=== PATIENT | female | born 1940 | race Caucasian/White ===

== ENCOUNTER → 2016-11-24 | Outpatient (CLI) | payer MEDICARE, BC ==
--- NOTE | 2016-11-25 11:29 | MM ---
Reason for exam: screening (asymptomatic). Last mammogram was performed 1 year ago. History: Patient is postmenopausal. Benign stereotactic core biopsy of the left breast, July 29, 2003. Benign excisional biopsy of the right breast. Took estrogen for 10 years beginning at age 40. Took progesterone for 10 years. Physical Findings: A clinical breast exam by your physician is recommended on an annual basis and results should be correlated with mammographic findings. MG 3D Screening Mammo W/Cad Bilateral CC and MLO view(s) were taken. Prior study comparison: November 12, 2015, bilateral MG 3d screening mammo w/cad. October 15, 2014, bilateral MG screening mammo w CAD. October 18, 2013, bilateral MG work up mamm w CAD BILAT. October 04, 2012, bilateral digital screening mammo w/CAD. The breast tissue is heterogeneously dense. This may lower the sensitivity of mammography. Finding: There are typically benign diffuse/scattered calcifications in both breasts. No suspicious abnormality. ASSESSMENT: Benign, BI-RAD 2 RECOMMENDATION: Routine screening mammogram of both breasts in 1 year.
== END | disposition home or self-care (01) ==
LOC: RADMAMWWP 12:47
PROVIDERS: ATTEND Family Medicine
DX: Z12.31 Encounter for screening mammogram for malignant neoplasm of breast (principal)
CPT/HCPCS: 77063; G0202

== ENCOUNTER 2016-12-03 11:15 | Emergency (ER) | payer MEDICARE, BC ==
[2016-12-03] MEDS ORDERED: FAMOTIDINE 20 MG/2 ML VIAL IV STA (11:42)
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
[2016-12-03] MEDS ORDERED: NAPROXEN 250 MG TAB PO STA (12:14)
[2016-12-03 13:24] VITALS: BP 134/68; PULSE 87; RESP 16; TEMP 98.2
== END 2016-12-03 13:29 | disposition home or self-care (01) ==
LOC: EC 11:15
DX: T63.441A Toxic effect of venom of bees, accidental (unintentional), initial encounter (principal); E07.9 Disorder of thyroid, unspecified; Z79.899 Other long term (current) drug therapy; Z91.030 Bee allergy status; Z91.040 Latex allergy status; Y92.89 Other specified places as the place of occurrence of the external cause
CPT/HCPCS: 96374; 99284

== ENCOUNTER 2017-11-09 14:38 | Inpatient (IN) | payer MEDICARE, BC ==
[2017-11-09 16:32] LABS: Basophils % (A) 0 %; Eosinophils # (A) 0.2 k/uL (0-0.7); Eosinophils % (A) 1 %; HCT 43.3 % (34.0-46.0); HGB 14.2 gm/dL (11.4-16.0); Lymphocytes # (A) 1.3 k/uL (1.0-4.8); Lymphocytes % (A) 9 %; MCH 28.3 pg (25.0-35.0); MCHC 32.8 g/dL (31.0-37.0); MCV 86.5 fL (80.0-100.0); Mean Platelet Volume 7.1; Monocytes # (A) 0.8 k/uL (0-1.0); Monocytes % (A) 6 %; Neutrophils # (A) 11.6 k/uL (1.3-7.7); Neutrophils % (A) 83 %; Platelet Count 316 k/uL (150-450); RDW 14.2 % (11.5-15.5)
--- NOTE | 2017-11-09 16:32 | XR ---
EXAMINATION TYPE: XR chest 2V DATE OF EXAM: 11/09/2017 COMPARISON: None INDICATION: Pain vomiting TECHNIQUE: Frontal and lateral views of the chest are obtained. FINDINGS: The heart size is normal. The pulmonary vasculature is normal. The lungs are clear. IMPRESSION: 1. No acute pulmonary process.
--- NOTE | 2017-11-09 16:33 | XR ---
EXAMINATION TYPE: XR KUB DATE OF EXAM: 11/09/2017 COMPARISON: None INDICATION: Pain, vomiting TECHNIQUE: Single view abdomen upright view FINDINGS: Nonspecific bowel gas is present. There are small bowel loops containing air. Some colonic bowel gas is present. There are some scattered air-fluid levels within the colon. No suspicious differential ai r-fluid levels are present. No free air is present. No mass effect is evident. Psoas margins are normal. No organomegaly is present. Cholecystectomy clips are present. IMPRESSION: 1. Nonspecific abdomen.
[2017-11-09 16:49] LABS: Appearance,Urine Clear (Clear); Bacteria,Urine Rare /hpf; Bilirubin,Urine Negative (Negative); Blood,Urine Negative (Negative); Color,Urine Yellow; Glucose,Urine (UA) Negative (Negative); Ketones,Urine Negative (Negative); Leukocyte Esterase,Urine Small (Negative); Mucus,Urine Rare /hpf; Nitrite,Urine Negative (Negative); Protein,Urine Trace (Negative); RBC,Urine 16 /hpf (0-5); Specific Gravity,Urine 1.019 (1.001-1.035); Squamous Epithelial Cell,Urine <1 /hpf (0-4); WBC,Urine 8 /hpf (0-5)
[2017-11-09 16:50] LABS: ALT 60 U/L (9-52); AST 85 U/L (14-36); Albumin 4.2 g/dL (3.5-5.0); Alkaline Phosphatase 121 U/L (38-126); Amylase 79 U/L (30-110); Anion Gap 9 mmol/L; Blood Urea Nitrogen 16 mg/dL (7-17); Calcium 9.7 mg/dL (8.4-10.2); Carbon Dioxide 25 mmol/L (22-30); Chloride 106 mmol/L (98-107); Glucose 104 mg/dL (74-99); Lipase 566 U/L (23-300); Potassium 4.3 mmol/L (3.5-5.1); Sodium 140 mmol/L (137-145); Total Bilirubin 0.5 mg/dL (0.2-1.3); Total Protein 7.8 g/dL (6.3-8.2)
[2017-11-09] MEDS ORDERED: SODIUM CHLORIDE 0.9% 1,000 ML IV ONE (17:14)
--- NOTE | 2017-11-09 17:43 | ED ---
Abdominal Pain HPI - General Source: patient, RN notes reviewed, old records reviewed Mode of arrival: wheelchair Limitations: no limitations <Kriss Luther - Last Filed: 11/09/17 19:41> <Davey Guzman - Last Filed: 11/09/17 19:50> - General Chief Complaint: Abdominal Pain Stated Complaint: abdominal pain & weakness Time Seen by Provider: 11/09/17 16:56 - History of Present Illness Initial Comments: 77-year-old female multiple food ALLERGIES presents emergency department today with episodes of diarrhea lasting today as well as some severe abdominal pain. She also had episodes of vomiting within the past 24 hours. Patient states that whenever she does have vomiting episodes she drains her whole body of energy. Patient reports today she's felt quite dizzy and weak. Patient states that she had some toast and jelly today. She did eat hamburger and tomatoes yesterday. (Kriss Luther) - Related Data Home Medications Medication Instructions Recorded Confirmed Cholecalciferol [Vitamin D3] 1,000 unit PO DAILY 12/03/16 11/09/17 L.acidoph,Paracasei, B.lactis 1 cap PO DAILY 12/03/16 11/09/17 [Probiotic] Levothyroxine Sodium [Synthroid] 25 mcg PO DAILY 12/03/16 11/09/17 Vit A/Vit C/Vit E/Zinc/Copper 1 cap PO DAILY 12/03/16 11/09/17 [ICAPS SOFTGEL] Calcium Carbonate [Tums] 500 mg PO DAILY 11/09/17 11/09/17 EPINEPHrine [Epipen 2-Michael] 0.3 mg IM ONCE PRN 11/09/17 11/09/17 diphenhydrAMINE [Benadryl] 25 - 50 mg PO Q6HR PRN 11/09/17 11/09/17 Allergies Allergy/AdvReac Type Severity Reaction Status Date / Time bee venom protein (honey bee) Allergy Swelling Verified 11/09/17 17:09 codeine Allergy Unknown Verified 11/09/17 17:09 latex AdvReac Itching Verified 11/09/17 17:09 Review of Systems ROS Other: All systems not noted in ROS Statement are negative. <Kriss Luther - Last Filed: 11/09/17 19:41> ROS Other: All systems not noted in ROS Statement are negative. <Davey Guzman - Last Filed: 11/09/17 19:50> ROS Statement: Those systems with pertinent positive or pertinent negative responses have been documented in the HPI. Past Medical History Past Medical History: Thyroid Disorder History of Any Multi-Drug Resistant Organisms: None Reported Past Surgical History: Cholecystectomy, Hysterectomy Additional Past Surgical History / Comment(s): left lumpectomy Past Psychological History: No Psychological Hx Reported Smoking Status: Never smoker Past Alcohol Use History: None Reported Past Drug Use History: None Reported <Kriss Luther - Last Filed: 11/09/17 19:41> General Exam Limitations: no limitations General appearance: alert, in no apparent distress Head exam: Present: atraumatic, normocephalic, normal inspection Eye exam: Present: normal appearance, PERRL, EOMI. Absent: scleral icterus, conjunctival injection, periorbital swelling ENT exam: Present: normal exam, mucous membranes moist Neck exam: Present: normal inspection. Absent: tenderness, meningismus, lymphadenopathy Respiratory exam: Present: normal lung sounds bilaterally. Absent: respiratory distress, wheezes, rales, rhonchi, stridor Cardiovascular Exam: Present: regular rate, normal rhythm, normal heart sounds. Absent: systolic murmur, diastolic murmur, rubs, gallop, clicks GI/Abdominal exam: Present: soft, normal bowel sounds, hyperactive bowel sounds. Absent: distended, tenderness, guarding, rebound, rigid Extremities exam: Present: normal inspection, full ROM, normal capillary refill. Absent: tenderness, pedal edema, joint swelling, calf tenderness Back exam: Present: normal inspection Neurological exam: Present: alert, oriented X3, CN II-XII intact Psychiatric exam: Present: normal affect, normal mood <Kriss Luther - Last Filed: 11/09/17 19:41> <Davey Guzman - Last Filed: 11/09/17 19:50> - General Exam Comments Initial Comments: This patient's a 77-year-old female. Alert and oriented. No significant distress. (Kriss Luther) Course <Kriss Luther - Last Filed: 11/09/17 19:41> <Davey Guzman - Last Filed: 11/09/17 19:50> Vital Signs 08/15/18 08/15/18 08/15/18 15:46 18:10 18:12 Temperature 98.0 F Pulse Rate 80 91 Respiratory 18 18 Rate Blood Pressure 122/63 118/58 O2 Sat by Pulse 95 Oximetry 11/09/17 11/09/17 18:57 19:42 Temperature Pulse Rate 79 18 L Respiratory 18 82 H Rate Blood Pressure 113/59 132/68 O2 Sat by Pulse 92 L 97 Oximetry - Reevaluation(s) Reevaluation #1: 11/09/17 19:50 PA supervision: I personally saw and examined the patient. I reviewed and agree with the PAs findings including all diagnostic interpretations treatment plans is written unless otherwise stated. I did discuss the case with Dr. Francis. (Davey Guzman) Medical Decision Making - Lab Data Result diagrams: 11/09/17 16:18 11/09/17 16:18 - Radiology Data Radiology results: report reviewed <Kriss Luther - Last Filed: 11/09/17 19:41> - Lab Data Result diagrams: 11/09/17 16:18 11/09/17 16:18 <Davey Guzman - Last Filed: 11/09/17 19:50> - Medical Decision Making 77-year-old female presents with vomiting, diarrhea episodes for the past 2 days. Patient may need something that did not agree with her. She has a long history of food ALLERGIES. Lab work was obtained. Mild leukocytosis evident. She also has mild elevation of her pancreatic enzyme her lipase. 599. CT abdomen and pelvis was completed. There is evidence of a cystic mass within the posterior aspect of the pancreas. Unable to exclude neoplastic process. CT also shows evidence of atherosclerotic disease, evidence of ileus. No obstruction noted. This Patient was started on IV fluids, she complains of no significant pain at this time. We'll give the Patient nothing by mouth. I will order a CA-19-9 on the Patient. I discussed woman the Patient for further evaluation. The pancreatic mass pending her CA-19-9 as well. Patient agrees treatment plan will comply. (Kriss Luther) - Lab Data Lab Results 11/09/17 11/09/17 11/09/17 Range/Units 16:18 16:18 16:18 WBC 14.0 H (3.8-10.6) k/uL RBC 5.00 (3.80-5.40) m/uL Hgb 14.2 (11.4-16.0) gm/dL Hct 43.3 (34.0-46.0) % MCV 86.5 (80.0-100.0) fL MCH 28.3 (25.0-35.0) pg MCHC 32.8 (31.0-37.0) g/dL RDW 14.2 (11.5-15.5) % Plt Count 316 (150-450) k/uL Neutrophils % 83 % Lymphocytes % 9 % Monocytes % 6 % Eosinophils % 1 % Basophils % 0 % Neutrophils # 11.6 H (1.3-7.7) k/uL Lymphocytes # 1.3 (1.0-4.8) k/uL Monocytes # 0.8 (0-1.0) k/uL Eosinophils # 0.2 (0-0.7) k/uL Basophils # 0.0 (0-0.2) k/uL Sodium 140 (137-145) mmol/L Potassium 4.3 (3.5-5.1) mmol/L Chloride 106 (98-107) mmol/L Carbon Dioxide 25 (22-30) mmol/L Anion Gap 9 mmol/L BUN 16 (7-17) mg/dL Creatinine 0.70 (0.52-1.04) mg/dL Est GFR (CKD-EPI)AfAm >90 (>60 ml/min/1.73 sqM) Est GFR (CKD-EPI)NonAf 83 (>60 ml/min/1.73 sqM) Glucose 104 H (74-99) mg/dL Plasma Lactic Acid Bryan 0.7 (0.7-2.0) mmol/L Calcium 9.7 (8.4-10.2) mg/dL Total Bilirubin 0.5 (0.2-1.3) mg/dL AST 85 H (14-36) U/L ALT 60 H (9-52) U/L Alkaline Phosphatase 121 (38-126) U/L Troponin I (0.000-0.034) ng/mL Total Protein 7.8 (6.3-8.2) g/dL Albumin 4.2 (3.5-5.0) g/dL Amylase 79 (30-110) U/L Lipase 566 H (23-300) U/L Urine Color Urine Appearance (Clear) Urine pH (5.0-8.0) Ur Specific [place] (1.001-1.035) Urine Protein (Negative) Urine Glucose (UA) (Negative) Urine Ketones (Negative) Urine Blood (Negative) Urine Nitrite (Negative) Urine Bilirubin (Negative) Urine Urobilinogen (<2.0) mg/dL Ur Leukocyte Esterase (Negative) Urine RBC (0-5) /hpf Urine WBC (0-5) /hpf Ur Squamous Epith Cells (0-4) /hpf Urine Bacteria (None) /hpf Urine Mucus (None) /hpf 11/09/17 11/09/17 Range/Units 16:18 16:30 WBC (3.8-10.6) k/uL RBC (3.80-5.40) m/uL Hgb (11.4-16.0) gm/dL Hct (34.0-46.0) % MCV (80.0-100.0) fL MCH (25.0-35.0) pg MCHC (31.0-37.0) g/dL RDW (11.5-15.5) % Plt Count (150-450) k/uL Neutrophils % % Lymphocytes % % Monocytes % % Eosinophils % % Basophils % % Neutrophils # (1.3-7.7) k/uL Lymphocytes # (1.0-4.8) k/uL Monocytes # (0-1.0) k/uL Eosinophils # (0-0.7) k/uL Basophils # (0-0.2) k/uL Sodium (137-145) mmol/L Potassium (3.5-5.1) mmol/L Chloride (98-107) mmol/L Carbon Dioxide (22-30) mmol/L Anion Gap mmol/L BUN (7-17) mg/dL Creatinine (0.52-1.04) mg/dL Est GFR (CKD-EPI)AfAm (>60 ml/min/1.73 sqM) Est GFR (CKD-EPI)NonAf (>60 ml/min/1.73 sqM) Glucose (74-99) mg/dL Plasma Lactic Acid Bryan (0.7-2.0) mmol/L Calcium (8.4-10.2) mg/dL Total Bilirubin (0.2-1.3) mg/dL AST (14-36) U/L ALT (9-52) U/L Alkaline Phosphatase (38-126) U/L Troponin I <0.012 (0.000-0.034) ng/mL Total Protein (6.3-8.2) g/dL Albumin (3.5-5.0) g/dL Amylase (30-110) U/L Lipase (23-300) U/L Urine Color Yellow Urine Appearance Clear (Clear) Urine pH 5.0 (5.0-8.0) Ur Specific [place] 1.019 (1.001-1.035) Urine Protein Trace H (Negative) Urine Glucose (UA) Negative (Negative) Urine Ketones Negative (Negative) Urine Blood Negative (Negative) Urine Nitrite Negative (Negative) Urine Bilirubin Negative (Negative) Urine Urobilinogen 2.0 (<2.0) mg/dL Ur Leukocyte Esterase Small H (Negative) Urine RBC 16 H (0-5) /hpf Urine WBC 8 H (0-5) /hpf Ur Squamous Epith Cells <1 (0-4) /hpf Urine Bacteria Rare H (None) /hpf Urine Mucus Rare H (None) /hpf - Radiology Data EKG shows normal sinus rhythm, normal EKG noted. Ventricular rate of 80 bpm. OH interval is 160 ms. QRS duration 96. QT QTc is 376/433. KUB is negative for any acute process. Chest x-rays negative for any acute cardiopulmonary process. Atherosclerotic vascular disease, irregular thin- walled cystic mass in the posterior body of the pancreas. Nonspecific. Consider inflammatory neoplastic process. Few celiac and mesenteric lymph nodes. Distended fluid small bowel consistent with ileus. Sclerotic foci in the lumbar spine could be osteoporosis. (Kriss Luther) Disposition Is patient prescribed a controlled substance at d/c from ED?: No Time of Disposition: 19:45 <Kriss Luther - Last Filed: 11/09/17 19:41> <Davey Guzman - Last Filed: 11/09/17 19:50> Clinical Impression: Elevated lipase, Pancreatic mass, Gastroenteritis Disposition: HOME SELF-CARE Referrals: Rosemarie Espinal MD [Primary Care Provider] - 1-2 days
--- NOTE | 2017-11-09 19:15 | CT ---
EXAMINATION TYPE: CT abdomen pelvis w con DATE OF EXAM: 11/09/2017 COMPARISON: None HISTORY: ABDOMINAL PAIN WITH VOMITING AND DIARRHEA CT DLP: 502.6 mGycm Automated exposure control for dose reduction was used. TECHNIQUE: Helical acquisition of images was performed from the lung bases through the pelvis. CONTRAST: Performed without Oral Contrast and with IV Contrast, patient injected with 100 mL of Isovue 300. FINDINGS: There is mild subsegmental atelectasis at the lung bases. The heart is enlarged. There is no pleural effusion. Liver spleen appear normal. There is an irregular 2.3 cm cyst in the body of the pancreas. Pancreatic duct is not dilated. There are clips from cholecystectomy. There is no adrenal mass. Kidneys show satisfactory contrast opacification. There is no hydronephrosi s. Ureters are not dilated. There are multiple fluid-filled distended loops of small bowel that measu re up to 3 cm. Bladder distends smoothly. There is mild edema in the perirectal fat. There is no asci tyler. There is fluid in the right colon. Appendix is not seen. There is no sign of appendicitis. Abdom inal aorta is atheromatous. There is no retroperitoneal adenopathy. There are multiple areas of mild osteosclerosis in the lumbar vertebral bodies. There are few retroperitoneal and mesenteric and celiac lymph nodes that measure up to 1.3 cm. IMPRESSION: ATHEROSCLEROTIC VASCULAR DISEASE. IRREGULAR THIN-WALLED CYSTIC MASS IN THE POSTERIOR BODY OF THE PANC REAS. THIS IS NONSPECIFIC. I WOULD CONSIDER BOTH INFLAMMATORY AND NEOPLASTIC PROCESS. THERE ARE A FEW MESENTERIC AND CELIAC AND RETROPERITONEAL LYMPH NODES. DISTENDED FLUID-FILLED SMALL BOWEL CONSISTENT WITH ILEUS. I DO NOT SEE EVIDENCE FOR MECHANICAL BOWEL OBSTRUCTION. SCLEROTIC FOCI IN THE LUMBAR SPINE COULD RELATE TO VARIABLE OSTEOPOROSIS. OSTEOBLASTIC DISEASE IS NOT ENTIRELY EXCLUDED.
[2017-11-09] MEDS: SODIUM CHLORIDE 0.9% 1,000 ML IV SCH (19:41)
[2017-11-09] MEDS ORDERED: IBUPROFEN 400 MG TAB PO PRN (19:47)
[2017-11-09] MEDS ORDERED: ONDANSETRON 4 MG/2 ML VIAL IVP PRN (19:47)
[2017-11-09] MEDS ORDERED: oxyCODONE-APAP 5-325MG 1 EACH TAB PO PRN (19:47)
[2017-11-09] MEDS ORDERED: HYDROcodone/APAP 5-325MG 1 EACH TAB PO PRN (19:47)
[2017-11-09] MEDS ORDERED: NALOXONE 0.4 MG/ML 1 ML VIAL IV PRN (19:47)
[2017-11-10] MEDS: SODIUM CHLORIDE 0.9% 1,000 ML IV SCH ×2 (06:03→15:38)
[2017-11-10] MEDS: PANTOPRAZOLE 40 MG/10 ML VIAL IV SCH (07:28)
[2017-11-10 11:17] LABS: Basophils % (A) 1 %; Eosinophils # (A) 0.2 k/uL (0-0.7); Eosinophils % (A) 4 %; HCT 35.8 % (34.0-46.0); HGB 11.8 gm/dL (11.4-16.0); Lymphocytes # (A) 1.8 k/uL (1.0-4.8); Lymphocytes % (A) 40 %; MCH 28.7 pg (25.0-35.0); MCV 87.1 fL (80.0-100.0); Mean Platelet Volume 6.9; Monocytes # (A) 0.3 k/uL (0-1.0); Monocytes % (A) 6 %; Neutrophils # (A) 2.2 k/uL (1.3-7.7); Neutrophils % (A) 49 %; Platelet Count 263 k/uL (150-450); RBC 4.11 m/uL (3.80-5.40); RDW 14.3 % (11.5-15.5); WBC 4.6 k/uL (3.8-10.6)
[2017-11-10 11:26] LABS: ALT 36 U/L (9-52); AST 17 U/L (14-36); Albumin 3.1 g/dL (3.5-5.0); Alkaline Phosphatase 83 U/L (38-126); Amylase 41 U/L (30-110); Anion Gap 6 mmol/L; Blood Urea Nitrogen 9 mg/dL (7-17); Calcium 8.7 mg/dL (8.4-10.2); Carbon Dioxide 24 mmol/L (22-30); Chloride 111 mmol/L (98-107); Glucose 87 mg/dL (74-99); Lipase 64 U/L (23-300); Potassium 4.3 mmol/L (3.5-5.1); Sodium 141 mmol/L (137-145); Total Bilirubin 0.5 mg/dL (0.2-1.3); Total Protein 6.1 g/dL (6.3-8.2)
[2017-11-10] MEDS: ACETAMINOPHEN TAB 325 MG TAB PO PRN ×2 (12:09→17:23)
[2017-11-10] MEDS: LEVOTHYROXINE 25 MCG TAB PO SCH (12:11)
[2017-11-10] MEDS ORDERED: diphenhydrAMINE 25 MG CAP PO PRN (12:20)
--- NOTE | 2017-11-10 12:31 | P.HPIM ---
History of Present Illness H&P Date: 11/10/17 Chief Complaint: Abdominal pain This is a 77-year-old female, patient of Dr. Espinal. She has a known past medical history of multiple food ALLERGIES with severe ALLERGIC reaction with symptoms of diarrhea and rash. She also has a history of hypothyroidism. Patient reports she had 2 days of persistent diarrhea. Then she proceeded to go to the grocery store and at the grocery store she had severe abdominal pain across the center of her abdomen and then vomited once. She came into the emergency room for further evaluation and treatment. She had a computed tomography scan of the abdomen and pelvis with contrast showing atherosclerotic vascular disease. Irregular thin-walled cystic mass in the posterior body of the pancreas. This is nonspecific but could consider inflammatory or neoplastic process. There are a few mesenteric and celiac and retroperitoneal lymph nodes. Distended fluid-filled small bowel consistent with ileus. Sclerotic foci in the lumbar spine could relate to variable osteoporosis. Osteoblastic disease is not entirely excluded. Patient also had elevated lipase of 566 elevated AST of 85 ALT 60 and white count 14. GI service has been consulted. Chest x-ray was negative KUB negative EKG normal sinus rhythm. She was started on IV fluids and made nothing by mouth. Stool for C. diff is negative. Awaiting other stool studies. Patient reports no further abdominal pain. She is still having frequent diarrhea. This is lasting longer than a typical food ALLERGY diarrhea. She reports that usually last about 24 hours. She has been dealing with these food ALLERGIES for about 3-4 years. She has had about a 40 pound weight loss over the past year. Denies any night sweats. Denies any alcohol or smoking history. Denies any previous cancer history. Review of Systems Please refer to HPI otherwise unremarkable Past Medical History Past Medical History: GERD/Reflux, Osteoarthritis (OA), Thyroid Disorder Additional Past Medical History / Comment(s): diverticulosis, goiter/thyroid, sinus problems. very sensative thin fragile skin. stated has rash on trunk. chronic atheletes foot, stress incont of urine, macular degeneration nori eyes. pt stated she received the hepatits a vaccine and shingels vaccine 2017 History of Any Multi-Drug Resistant Organisms: None Reported Past Surgical History: Cholecystectomy, Hysterectomy Additional Past Surgical History / Comment(s): cataracts, colonoscopy, nori breast bx-neg, cyst removed from rt breast, oppherectomy then total hysterectomy , lt breast has marker for mammogram Past Anesthesia/Blood Transfusion Reactions: Motion Sickness Smoking Status: Former smoker - Past Family History Mother Family Medical History: Hypertension Additional Family Medical History / Comment(s): mva- head injury- from complications Father Family Medical History: Coronary Artery Disease (CAD) Additional Family Medical History / Comment(s): heart problems Medications and Allergies Home Medications Medication Instructions Recorded Confirmed Type Cholecalciferol [Vitamin D3] 1,000 unit PO DAILY 12/03/16 11/09/17 History L.acidoph,Paracasei, B.lactis 1 cap PO DAILY 12/03/16 11/09/17 History [Probiotic] Levothyroxine Sodium [Synthroid] 25 mcg PO DAILY 12/03/16 11/09/17 History Vit A/Vit C/Vit E/Zinc/Copper 1 cap PO DAILY 12/03/16 11/09/17 History [ICAPS SOFTGEL] Calcium Carbonate [Tums] 500 mg PO DAILY 11/09/17 11/09/17 History EPINEPHrine [Epipen 2-Michael] 0.3 mg IM ONCE PRN 11/09/17 11/09/17 History diphenhydrAMINE [Benadryl] 25 - 50 mg PO Q6HR PRN 11/09/17 11/09/17 History Allergies Allergy/AdvReac Type Severity Reaction Status Date / Time apple Allergy Rash/Hives Verified 11/09/17 21:36 banana Allergy Rash/Hives Verified 11/09/17 21:30 bee venom protein (honey bee) Allergy Swelling Verified 11/09/17 17:09 Beef Containing Products Allergy Rash/Hives Verified 11/09/17 21:34 [Beef] codeine Allergy Unknown Verified 11/09/17 17:09 tomato Allergy Rash/Hives Verified 11/09/17 21:33 wheat Allergy Rash/Hives Verified 11/09/17 21:32 Yeast Allergy Rash/Hives Verified 11/09/17 21:31 latex AdvReac Itching Verified 11/09/17 17:09 casein protein Allergy Rash/Hives Uncoded 11/09/17 21:35 cod fish Allergy Rash/Hives Uncoded 11/09/17 21:33 maize Allergy Rash/Hives Uncoded 11/09/17 21:30 Physical Exam Vitals: Vital Signs Temp Pulse Pulse Resp BP BP Pulse Ox 11/10/17 07:39 87 18 11/10/17 07:38 87 18 11/10/17 06:27 97.9 F 87 18 121/57 99 11/10/17 00:00 85 19 11/09/17 20:28 98.5 F 19 11/09/17 20:25 98.3 F 85 18 138/61 97 11/09/17 20:16 98.6 F 11/09/17 19:42 82 18 132/68 97 11/09/17 18:57 79 18 113/59 92 L 11/09/17 18:12 118/58 11/09/17 18:10 91 18 95 11/09/17 15:46 98.0 F 80 18 122/63 Intake and Output 11/09/17 11/10/17 11/10/17 22:59 06:59 14:59 Intake Total 240 1100 0 Balance 240 1100 0 Intake: Intake, IV Titration 1100 Amount Sodium Chloride 0.9% 1, 1100 000 ml @ 100 mls/hr IV . Q10H [facility] Rx#:[id number] Oral 240 0 Other: # Voids 1 1 3 # Bowel Movements 2 Weight 58.967 kg Head normocephalic Neck supple Lungs clear to auscultation bilaterally no wheezing or crackles Heart regular rate and rhythm S1-S2, no rub or gallop Abdomen is soft nontender nondistended positive bowel sounds no hepatosplenomegaly Extremities no edema Neuro alert and orientated to 3 Skin: Patient has significant red rash along the back and stomach and mild rash on the upper thighs. Results CBC & Chem 7: 11/10/17 10:45 11/10/17 10:45 Labs: Abnormal Lab Results - Last 24 Hours (Table) 11/09/17 11/09/17 11/09/17 Range/Units 16:18 16:18 16:30 WBC 14.0 H (3.8-10.6) k/uL Neutrophils # 11.6 H (1.3-7.7) k/uL Chloride (98-107) mmol/L Glucose 104 H (74-99) mg/dL AST 85 H (14-36) U/L ALT 60 H (9-52) U/L Total Protein (6.3-8.2) g/dL Albumin (3.5-5.0) g/dL Lipase 566 H (23-300) U/L Urine Protein Trace H (Negative) Ur Leukocyte Esterase Small H (Negative) Urine RBC 16 H (0-5) /hpf Urine WBC 8 H (0-5) /hpf Urine Bacteria Rare H (None) /hpf Urine Mucus Rare H (None) /hpf 11/10/17 Range/Units 10:45 WBC (3.8-10.6) k/uL Neutrophils # (1.3-7.7) k/uL Chloride 111 H (98-107) mmol/L Glucose (74-99) mg/dL AST (14-36) U/L ALT (9-52) U/L Total Protein 6.1 L (6.3-8.2) g/dL Albumin 3.1 L (3.5-5.0) g/dL Lipase (23-300) U/L Urine Protein (Negative) Ur Leukocyte Esterase (Negative) Urine RBC (0-5) /hpf Urine WBC (0-5) /hpf Urine Bacteria (None) /hpf Urine Mucus (None) /hpf Thrombosis Risk Factor Assmnt - Choose All That Apply Each Risk Factor Represents 3 Points: Age 75 years or older Thrombosis Risk Factor Assessment Total Risk Factor Score: 3 Thrombosis Risk Factor Assessment Level: Moderate Risk Assessment and Plan Assessment: 1. Abdominal pain with diarrhea and episode of vomiting. Abnormal CAT scan findings with a thin-walled cystic mass in the posterior body of the pancreas. Need to consider both inflammatory and neoplastic process. Lipase elevated as well as AST and ALT these have normalized. GI service has been consulted. Patient is currently nothing by mouth Will await their further evaluation and recommendations. Stool for C. diff is negative. Others stool studies are pending. Continue IV fluids. CA-19-9 pending 2. 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 Patient reports that the current rash she has is showing improvement it is severe and she takes Benadryl. We'll resume patient's Benadryl. 3. Positive urinalysis with no urinary symptoms. Likely contaminant from the diarrhea. We will send for urine culture. Continue to monitor 4. Hypothyroidism continue Synthroid 6. Ileus present on CAT scan. Patient currently nothing by mouth. Continue with IV fluid hydration GI prophylaxis Protonix and DVT prophylaxis SCDs Time with Patient: Greater than 30 (Greater than 60% of the total time spent in counseling and coordination of care.I performed an examination of the patient and discussed their management with the physician Vp Informatics. I have reviewed the Physician Vp Informatics's notes and agree with the documented findings and plan of care)
[2017-11-10 13:43] VITALS: BMI 22.3
--- NOTE | 2017-11-10 23:55 | P.CONS ---
History of Present Illness - Reason for Consult Consult date: 11/10/17 Pancreatic mass Requesting physician: Delia Francis - Chief Complaint Diarrhea, abdominal pain - History of Present Illness The patient is a pleasant 77-year-old female who presented to the emergency department complaints of worsening diarrhea and sharp abdominal pain. Per the patient she suffers from baseline diarrhea with approximately 5 episodes of diarrhea daily. The patient reports that she has had colonoscopic evaluation in the past but reports that the diarrhea has been attributed to significant ALLERGIES which she suffers from. She notes that usually her diarrhea occurs predominantly in the morning and is improved by the afternoon. The patient reports that this today's prior to presentation she began to increased diarrhea with innumerable episodes of nonbloody stool per rectum. She reports that she developed 30-40 minutes of sharp nonradiating periumbilical abdominal pain while shopping prior to coming to the hospital for evaluation. The patient reports that the diarrhea has subsequently improved and she is no longer having abdominal pain. She reports a few episodes of nonbloody non-bilious emesis prior to presentation which have also improved. She denies any travel sick contacts or change in her medications. On admission the patient had a computed tomography scan done of the abdomen which showed an irregular thin-walled pancreatic mass in the tail of the pancreas with evidence of previous cholecystectomy. The patient had a follow-up CA 19 9 which was found to be normal. Evaluation of her loose bowel movements with an EIA for C. diff was also found to be negative. The patient denies any prior history of alcohol abuse or any family history of pancreatic cancer. She reports that when her diarrhea began in the past she lost weight however over the last year her weight has been stable. Review of Systems Constitutional: Denies chills, Denies fever, Denies lethargy, Denies poor appetite, Denies weight gain Eyes: denies photophobia Ears, nose, mouth and throat: Denies dysphagia, Denies epistaxis, Denies sore throat Cardiovascular: Denies chest pain, Denies edema, Denies high blood pressure, Denies palpitations, Denies shortness of breath, Denies syncope Respiratory: Denies cough, Denies cough with sputum, Denies dyspnea Gastrointestinal: Reports abdominal pain, Reports change in bowel habits, Reports diarrhea, Reports nausea, Reports vomiting, Denies BRBPR, Denies coffee ground emesis, Denies constipation, Denies heartburn Integumentary: Reports rash Neurological: Denies double vision, Denies gait dysfunction, Denies seizures Psychiatric: Denies confusion, Denies difficulty concentrating Past Medical History Past Medical History: GERD/Reflux, Osteoarthritis (OA), Thyroid Disorder Additional Past Medical History / Comment(s): diverticulosis, goiter/thyroid, sinus problems. very sensative thin fragile skin. stated has rash on trunk. chronic atheletes foot, stress incont of urine, macular degeneration nori eyes. pt stated she received the hepatits a vaccine and shingels vaccine 2017 History of Any Multi-Drug Resistant Organisms: None Reported Past Surgical History: Cholecystectomy, Hysterectomy Additional Past Surgical History / Comment(s): cataracts, colonoscopy, nori breast bx-neg, cyst removed from rt breast, oppherectomy then total hysterectomy , lt breast has marker for mammogram Past Anesthesia/Blood Transfusion Reactions: Motion Sickness Smoking Status: Former smoker - Past Family History Mother Family Medical History: Hypertension Additional Family Medical History / Comment(s): mva- head injury- from complications Father Family Medical History: Coronary Artery Disease (CAD) Additional Family Medical History / Comment(s): heart problems Medications and Allergies Home Medications Medication Instructions Recorded Confirmed Type Cholecalciferol [Vitamin D3] 1,000 unit PO DAILY 12/03/16 11/09/17 History L.acidoph,Paracasei, B.lactis 1 cap PO DAILY 12/03/16 11/09/17 History [Probiotic] Levothyroxine Sodium [Synthroid] 25 mcg PO DAILY 12/03/16 11/09/17 History Vit A/Vit C/Vit E/Zinc/Copper 1 cap PO DAILY 12/03/16 11/09/17 History [ICAPS SOFTGEL] Calcium Carbonate [Tums] 500 mg PO DAILY 11/09/17 11/09/17 History EPINEPHrine [Epipen 2-Michael] 0.3 mg IM ONCE PRN 11/09/17 11/09/17 History diphenhydrAMINE [Benadryl] 25 - 50 mg PO Q6HR PRN 11/09/17 11/09/17 History Allergies Allergy/AdvReac Type Severity Reaction Status Date / Time apple Allergy Rash/Hives Verified 11/09/17 21:36 banana Allergy Rash/Hives Verified 11/09/17 21:30 bee venom protein (honey bee) Allergy Swelling Verified 11/09/17 17:09 Beef Containing Products Allergy Nausea & Verified 11/10/17 13:45 [Beef] Vomiting & Diarrhea chicken derived [Chicken] Allergy Nausea & Verified 11/10/17 13:45 Vomiting & Diarrhea codeine Allergy Unknown Verified 11/09/17 17:09 potato Allergy Nausea & Verified 11/10/17 13:45 Vomiting & Diarrhea tomato Allergy Rash/Hives Verified 11/09/17 21:33 wheat Allergy Nausea & Verified 11/10/17 13:45 Vomiting & Diarrhea Yeast Allergy Rash/Hives Verified 11/09/17 21:31 latex AdvReac Itching Verified 11/09/17 17:09 casein protein Allergy Nausea & Uncoded 11/10/17 13:45 Vomiting & Diarrhea cod fish Allergy Rash/Hives Uncoded 11/09/17 21:33 maize Allergy Rash/Hives Uncoded 11/09/17 21:30 Physical Exam Vitals: Vital Signs Temp Pulse Resp BP Pulse Ox 11/10/17 20:36 97.8 F 72 20 169/69 99 11/10/17 19:00 18 11/10/17 16:00 79 18 11/10/17 14:20 97.6 F 79 18 144/73 97 11/10/17 07:39 87 18 11/10/17 07:38 87 18 11/10/17 06:27 97.9 F 87 18 121/57 99 11/10/17 00:00 85 19 Intake and Output 11/10/17 11/10/17 11/11/17 14:59 22:59 06:59 Intake Total 0 1740 Balance 0 1740 Intake: Oral 0 1740 Other: # Voids 3 3 # Bowel Movements 2 3 Weight 58.967 kg - Constitutional General appearance: cooperative, thin - EENT Eyes: EOMI, no scleral icterus - Respiratory Respiratory: bilateral: CTA, negative: diminished, dullness, rales, rhonchi, wheezing - Cardiovascular Rhythm: regular Heart sounds: normal: S1, S2 - Gastrointestinal General gastrointestinal: no distended, normal bowel sounds, no organomegaly, soft - Psychiatric Psychiatric: A&O x's 3, appropriate affect Results CBC & Chem 7: 11/10/17 10:45 11/10/17 10:45 Labs: Abnormal Lab Results - Last 24 Hours (Table) 11/10/17 Range/Units 10:45 Chloride 111 H (98-107) mmol/L Total Protein 6.1 L (6.3-8.2) g/dL Albumin 3.1 L (3.5-5.0) g/dL Microbiology - Last 24 Hours (Table) 11/10/17 14:35 Urine Culture - Preliminary Urine,Voided 11/10/17 08:00 Stool Culture - Preliminary Stool CT scan - abdomen: report reviewed Assessment and Plan (1) Pancreatic mass Narrative/Plan: Thin-walled pancreatic mass noted on computed tomography scan which was done in evaluation of patient's symptoms of worsening diarrhea and severe abdominal pain. Unclear if this mass represents a benign or malignant process with differential diagnosis brought including sidebranch type IPMN, MCN, pancreatic cyst or other etiology. Further evaluation will be needed. Current Visit: Yes Status: Acute Code(s): K86.9 - DISEASE OF PANCREAS, UNSPECIFIED SNOMED Code(s): 569506221 (2) Gastroenteritis Narrative/Plan: Acute on chronic diarrhea of unknown etiology likely represents a viral or bacterial gastroenteritis. The patient may benefit from outpatient workup of her diarrhea including colonoscopy with random colonic biopsies to rule out microscopic colitis and trial of therapy for bile salt diarrhea in the setting of previous cholecystectomy. However at this time symptoms have improved as is likely that the acute component of her symptoms or infectious in nature. Current Visit: Yes Status: Acute Code(s): K52.9 - NONINFECTIVE GASTROENTERITIS AND COLITIS, UNSPECIFIED SNOMED Code(s): 12836924 (3) Elevated lipase Narrative/Plan: No evidence of pancreatic inflammation on CT to suggest pancreatitis and pain not typical, elevated lipase may be related to the pancreatic mass seen on CT. However further imaging we required to investigate. Current Visit: Yes Status: Acute Code(s): R74.8 - ABNORMAL LEVELS OF OTHER SERUM ENZYMES SNOMED Code(s): 165165858 Plan: 1. Computed tomography scan reviewed and given findings of pancreatic mass further workup with MRI ordered. In addition the patient would likely benefit from evaluation with endoscopic ultrasound. This procedure is provided at this hospital and the patient will get the contact information to follow-up with an advanced endoscopist for further pancreatic evaluation and possible fluid aspiration of the mass. 2. Okay for clear liquid diet at this time which the patient is tolerating. We 'll advance as tolerated. 3. Patient will require follow-up in the outpatient setting for further evaluation of her chronic diarrhea. 4. Stool studies negative today. 5. Will continue to follow Thank you for the opportunity to participate in the care of this patient.
[2017-11-11] MEDS: LEVOTHYROXINE 25 MCG TAB PO SCH (06:23)
[2017-11-11] MEDS: SODIUM CHLORIDE 0.9% 1,000 ML IV SCH ×3 (06:25→23:47)
[2017-11-11 06:49] LABS: Basophils % (A) 0 %; Eosinophils # (A) 0.2 k/uL (0-0.7); Eosinophils % (A) 4 %; HCT 37.2 % (34.0-46.0); HGB 12.3 gm/dL (11.4-16.0); Lymphocytes # (A) 1.8 k/uL (1.0-4.8); Lymphocytes % (A) 37 %; MCHC 33.1 g/dL (31.0-37.0); MCV 87.5 fL (80.0-100.0); Mean Platelet Volume 6.9; Monocytes # (A) 0.3 k/uL (0-1.0); Monocytes % (A) 5 %; Neutrophils # (A) 2.5 k/uL (1.3-7.7); Neutrophils % (A) 51 %; Platelet Count 271 k/uL (150-450); RBC 4.25 m/uL (3.80-5.40); RDW 14.3 % (11.5-15.5); WBC 4.9 k/uL (3.8-10.6)
[2017-11-11 07:00] LABS: ALT 31 U/L (9-52); AST 12 U/L (14-36); Albumin 3.2 g/dL (3.5-5.0); Alkaline Phosphatase 74 U/L (38-126); Anion Gap 7 mmol/L; Blood Urea Nitrogen 7 mg/dL (7-17); Calcium 8.8 mg/dL (8.4-10.2); Carbon Dioxide 21 mmol/L (22-30); Chloride 113 mmol/L (98-107); Glucose 84 mg/dL (74-99); Sodium 141 mmol/L (137-145); Total Bilirubin 0.5 mg/dL (0.2-1.3); Total Protein 6.3 g/dL (6.3-8.2)
[2017-11-11] MEDS: PANTOPRAZOLE 40 MG/10 ML VIAL IV SCH (08:15)
[2017-11-11] MEDS: ACETAMINOPHEN TAB 325 MG TAB PO PRN ×2 (08:17→19:17)
[2017-11-11] MEDS: LACTOBACILLUS ACIDOPH & BULGAR 1 EACH PACKET PO SCH (08:27)
[2017-11-11] MEDS ORDERED: ENOXAPARIN 40 MG/0.4 ML SYRINGE SQ SCH (14:15)
--- NOTE | 2017-11-11 14:28 | P.PN ---
Subjective Progress Note Date: 11/11/17 This is a 77-year-old female, patient of Dr. Espinal. She has a known past medical history of multiple food ALLERGIES with severe ALLERGIC reaction with symptoms of diarrhea and rash. She also has a history of hypothyroidism. Patient reports she had 2 days of persistent diarrhea. Then she proceeded to go to the grocery store and at the grocery store she had severe abdominal pain across the center of her abdomen and then vomited once. She came into the emergency room for further evaluation and treatment. She had a computed tomography scan of the abdomen and pelvis with contrast showing atherosclerotic vascular disease. Irregular thin-walled cystic mass in the posterior body of the pancreas. This is nonspecific but could consider inflammatory or neoplastic process. There are a few mesenteric and celiac and retroperitoneal lymph nodes. Distended fluid-filled small bowel consistent with ileus. Sclerotic foci in the lumbar spine could relate to variable osteoporosis. Osteoblastic disease is not entirely excluded. Patient also had elevated lipase of 566 elevated AST of 85 ALT 60 and white count 14. GI service has been consulted. Chest x-ray was negative KUB negative EKG normal sinus rhythm. She was started on IV fluids and made nothing by mouth. Stool for C. diff is negative. Awaiting other stool studies. Patient reports no further abdominal pain. She is still having frequent diarrhea. This is lasting longer than a typical food ALLERGY diarrhea. She reports that usually last about 24 hours. She has been dealing with these food ALLERGIES for about 3-4 years. She has had about a 40 pound weight loss over the past year. Denies any night sweats. Denies any alcohol or smoking history. Denies any previous cancer history. 11/11/2017 patient has had no further abdominal pain. Reports improvement in her bowel movements. Last stool was at 6:00 this morning and it was partially formed. She denies any blood in the stools. She did receive a liquid diet last night did have diarrhea after eating. She is scheduled for an MRI of the abdomen today for further evaluation of the pancreatic cystic mass. Patient denies any further vomiting. Denies any chest pain or shortness of breath. Denies any difficulty with urinating or any burning with urination. Objective - Vital Signs Vital signs: Vital Signs Temp 98.0 F 11/11/17 11:37 Pulse 69 11/11/17 11:37 Resp 16 11/11/17 11:37 BP 136/70 11/11/17 11:37 Pulse Ox 98 11/11/17 11:37 Intake & Output 11/10/17 11/11/17 11/11/17 18:59 06:59 18:59 Intake Total 0 2320 Balance 0 2320 Weight 58.967 kg Intake: Oral 0 2320 Other: # Voids 3 # Bowel Movements 1 3 - Exam Head normocephalic Neck supple Lungs clear to auscultation bilaterally no wheezing or crackles Heart regular rate and rhythm S1-S2, no rub or gallop Abdomen is soft nontender nondistended positive bowel sounds no hepatosplenomegaly Extremities no edema Neuro alert and orientated to 3 - Labs CBC & Chem 7: 11/11/17 06:32 11/11/17 06:32 Labs: Abnormal Lab Results - Last 24 Hours (Table) 11/11/17 Range/Units 06:32 Chloride 113 H (98-107) mmol/L Carbon Dioxide 21 L (22-30) mmol/L AST 12 L (14-36) U/L Albumin 3.2 L (3.5-5.0) g/dL Microbiology - Last 24 Hours (Table) 11/10/17 14:35 Urine Culture - Preliminary Urine,Voided 11/10/17 08:00 Stool Culture - Preliminary Stool Assessment and Plan Assessment: 1. Gastroenteritis: with abdominal pain, diarrhea and episode of vomiting. Stool studies are negative so far. Continue with IV fluid hydration. 2. Cystic mass of the pancreas: Abnormal CAT scan findings with a thin-walled cystic mass in the posterior body of the pancreas. Need to consider both inflammatory and neoplastic process. Lipase elevated as well as AST and ALT these have normalized. Patient seen by GI service they have ordered an abdominal MRI and also recommending an endoscopic ultrasound to be completed outpatient. 3. 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 Patient reports that the current rash she has is showing improvement it is severe and she takes Benadryl. We'll resume patient's Benadryl. 4. Positive urinalysis with no urinary symptoms. Likely contaminant from the diarrhea. Diarrhea has improved. We'll repeat urinalysis 5. Hypothyroidism continue Synthroid 6. Ileus present on CAT scan. Continue to monitor GI prophylaxis Protonix and DVT prophylaxis lovenox I performed an examination of the patient and discussed their management with the physician Financial Systems Analyst. I have reviewed the Physician Financial Systems Analyst's notes and agree with the documented findings and plan of care
--- NOTE | 2017-11-11 15:12 | MR ---
EXAMINATION TYPE: MR abdomen wo/w con DATE OF EXAM: 11/11/2017 COMPARISON: CT abdomen and pelvis 2 days earlier. HISTORY: Follow up pancreatic mass seen on CT CONTRAST: Standard multiplanar, multisequence MRI departmental protocol utilizing 7.5 mL intravenous Gadavist g adolinium contrast. FINDINGS: Pancreas: Pancreas is overall normal in size. Correlating with CT there is lobulated thin-walled cyst or cystic lesion in the mid body measuring 2.1 x 1.4 cm coronal image 15 with AP diameter 1.5 cm axi al image 13. Postcontrast images show no suspicious nodular enhancement. Remainder pancreas shows no additional worrisome solid or cystic masses. Other: Cardiomegaly is present. Lung bases are clear. There is mild to moderate periportal edema thro ughout the liver. Liver is upper limits of normal in size. Gallbladder is surgically absent. Spleen a nd both adrenal glands are unremarkable. There is simple appearing 9 mm cyst lower pole level left ki dney. There is no suspicious small or large bowel dilatation. Stomach is poorly distended and thus suboptim ally evaluated. There is no concerning abdominal fluid collection. There is slight underlying dextroc onvex scoliotic curvature centered in the mid lumbar spine. No definitive greater than 1 cm abdominal adenopathy is seen. IMPRESSION: Confirmation of 2.1 cm thin-walled cyst or cystic lesion in the region of the mid pancrea tic body. Differential includes pseudocyst versus pancreatic cystic neoplasm. No suspicious nodularit y or enhancement. Correlate clinically and with pancreatic tumor lab markers. Consider MRI surveillan ce in 6-12 months time to reevaluate based on above.
--- NOTE | 2017-11-11 19:54 | P.PN ---
Subjective Progress Note Date: 11/11/17 Principal diagnosis: Diarrhea, pancreatic mass The patient reports feeling well today. She reports improvement of her diarrhea which she is known to suffer from baseline. She has had no further abdominal pain since presentation. MRI was performed and was consistent with CT findings of distal pancreatic mass. I discussed this with the patient and left detailed discharge instructions which I informed her of. Objective - Vital Signs Vital signs: Vital Signs Temp 98.1 F 11/11/17 18:18 Pulse 71 11/11/17 18:18 Resp 16 11/11/17 18:18 BP 147/69 11/11/17 18:18 Pulse Ox 95 11/11/17 18:18 Intake & Output 11/11/17 11/11/17 11/12/17 06:59 18:59 06:59 Intake Total 2320 Balance 2320 Intake: Oral 2320 Other: # Voids 2 1 # Bowel Movements 3 - Exam On physical examination, patient appears comfortable in no apparent distress. Vital signs are stable. HEENT: Unremarkable. Conjunctivae pink. Sclerae anicteric. Oral cavity no lesions. NECK: No JVD or lymph node enlargement. CHEST: Clear to auscultation. HEART: Regular rate and rhythm. ABDOMEN: Soft. Bowel sounds are positive. No organomegaly. EXTREMITIES: No pedal edema. SKIN: No rashes. NEUROLOGIC: Alert and oriented x3. No focal deficits. - Labs CBC & Chem 7: 11/11/17 06:32 11/11/17 06:32 Labs: Abnormal Lab Results - Last 24 Hours (Table) 11/11/17 Range/Units 06:32 Chloride 113 H (98-107) mmol/L Carbon Dioxide 21 L (22-30) mmol/L AST 12 L (14-36) U/L Albumin 3.2 L (3.5-5.0) g/dL Microbiology - Last 24 Hours (Table) 11/10/17 14:35 Urine Culture - Preliminary Urine,Voided Gram Neg Bacilli 11/10/17 08:00 Stool Culture - Preliminary Stool Assessment and Plan (1) Pancreatic mass Narrative/Plan: Thin-walled pancreatic mass noted on computed tomography scan which was done in evaluation of patient's symptoms of worsening diarrhea and severe abdominal pain. Unclear if this mass represents a benign or malignant process with differential diagnosis brought including sidebranch type IPMN, MCN, pancreatic cyst or other etiology. Further evaluation with MRI was consistent with CT findings, of note calcifications or nodularity or other worrisome features were described. The patient however will need EUS with possible aspiration of the cyst for further evaluation. Current Visit: Yes Status: Acute Code(s): K86.9 - DISEASE OF PANCREAS, UNSPECIFIED SNOMED Code(s): 234692851 (2) Gastroenteritis Narrative/Plan: Acute on chronic diarrhea of unknown etiology likely represents a viral or bacterial gastroenteritis. The patient may benefit from outpatient workup of her diarrhea including colonoscopy with random colonic biopsies to rule out microscopic colitis and trial of therapy for bile salt diarrhea in the setting of previous cholecystectomy. However at this time symptoms have improved as is likely that the acute component of her symptoms are infectious in nature. Current Visit: Yes Status: Acute Code(s): K52.9 - NONINFECTIVE GASTROENTERITIS AND COLITIS, UNSPECIFIED SNOMED Code(s): 63639792 (3) Elevated lipase Narrative/Plan: No evidence of pancreatic inflammation on CT to suggest pancreatitis and pain not typical, elevated lipase may be related to the pancreatic mass seen on CT. Current Visit: Yes Status: Acute Code(s): R74.8 - ABNORMAL LEVELS OF OTHER SERUM ENZYMES SNOMED Code(s): 854462000 Plan: 1. Computed tomography scan reviewed and given findings of pancreatic mass which was confirmed by evaluation with MRI today. In addition the patient would likely benefit from evaluation with endoscopic ultrasound. The patient was called and informed of the results of her imaging. At this time I have included the contact information of an advanced endoscopist at [facility] will be able to for provide the EUS for the patient, she was informed of the plan and is agreeable. 2. Okay for diet as tolerated. 3. Patient will require follow-up in the outpatient setting for further evaluation of her chronic diarrhea. 4. Stool studies negative. 5. Will continue to follow Thank you for the opportunity to participate in the care of this patient.
[2017-11-11 22:19] LABS: Appearance,Urine Clear (Clear); Bacteria,Urine Few /hpf; Bilirubin,Urine Negative (Negative); Blood,Urine Negative (Negative); Color,Urine Light Yellow; Glucose,Urine (UA) Negative (Negative); Ketones,Urine Negative (Negative); Leukocyte Esterase,Urine Small (Negative); Mucus,Urine Rare /hpf; Nitrite,Urine Negative (Negative); Protein,Urine Negative (Negative); RBC,Urine <1 /hpf (0-5); Specific Gravity,Urine 1.011 (1.001-1.035); Urobilinogen,Urine <2.0 mg/dL (<2.0); WBC,Urine 7 /hpf (0-5)
[2017-11-11 23:31] VITALS: RESP 18
[2017-11-12] MEDS: SODIUM CHLORIDE 0.9% 1,000 ML IV SCH (05:14)
[2017-11-12] MEDS: LEVOTHYROXINE 25 MCG TAB PO SCH (06:35)
[2017-11-12 07:22] LABS: Basophils % (A) 0 %; Eosinophils # (A) 0.2 k/uL (0-0.7); Eosinophils % (A) 4 %; HGB 11.4 gm/dL (11.4-16.0); Lymphocytes # (A) 1.9 k/uL (1.0-4.8); Lymphocytes % (A) 45 %; MCH 28.4 pg (25.0-35.0); MCHC 32.7 g/dL (31.0-37.0); MCV 86.6 fL (80.0-100.0); Mean Platelet Volume 6.9; Monocytes # (A) 0.3 k/uL (0-1.0); Monocytes % (A) 7 %; Neutrophils # (A) 1.8 k/uL (1.3-7.7); Neutrophils % (A) 42 %; Platelet Count 260 k/uL (150-450); RBC 4.04 m/uL (3.80-5.40); RDW 14.1 % (11.5-15.5); WBC 4.3 k/uL (3.8-10.6)
[2017-11-12 08:09] LABS: ALT 26 U/L (9-52); AST 9 U/L (14-36); Albumin 2.8 g/dL (3.5-5.0); Alkaline Phosphatase 61 U/L (38-126); Anion Gap 5 mmol/L; Blood Urea Nitrogen 9 mg/dL (7-17); Calcium 8.5 mg/dL (8.4-10.2); Carbon Dioxide 22 mmol/L (22-30); Chloride 114 mmol/L (98-107); Glucose 84 mg/dL (74-99); Sodium 141 mmol/L (137-145); Total Bilirubin 0.3 mg/dL (0.2-1.3); Total Protein 5.6 g/dL (6.3-8.2)
[2017-11-12] MEDS ORDERED: ENOXAPARIN 40 MG/0.4 ML SYRINGE SQ SCH (09:00)
[2017-11-12] MEDS: LACTOBACILLUS ACIDOPH & BULGAR 1 EACH PACKET PO SCH (09:02)
[2017-11-12] MEDS: PANTOPRAZOLE 40 MG/10 ML VIAL IV SCH (09:05)
[2017-11-12 12:50] VITALS: BP 138/68; PULSE 63; TEMP 98
--- NOTE | 2017-11-12 13:17 | P.DS ---
Providers Date of admission: 11/09/17 19:46 Expected date of discharge: 11/12/17 Attending physician: Delia Francis Consults: 11/09/17 19:52 Consult Physician Stat Consulting Provider: Erin Hidalgo Consult Reason/Comments: pancreatic cyst vs mass Do you want consulting provider notified?: Yes Primary care physician: Rosemarie Espinal Hospital Course: Diagnosis on discharge: 1. Gastroenteritis: with abdominal pain, diarrhea and episode of vomiting. Stool studies are negative so far. Continue with IV fluid hydration. 2. Cystic mass of the pancreas: Abnormal CAT scan findings with a thin-walled cystic mass in the posterior body of the pancreas. Need to consider both inflammatory and neoplastic process. Lipase elevated as well as AST and ALT these have normalized. Patient seen by GI service they have ordered an abdominal MRI and also recommending an endoscopic ultrasound to be completed outpatient. 3. 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 Patient reports that the current rash she has is showing improvement it is severe and she takes Benadryl. We'll resume patient's Benadryl. 4. Positive urinalysis with no urinary symptoms. Likely contaminant from the diarrhea. Diarrhea has improved. We'll repeat urinalysis 5. Hypothyroidism continue Synthroid 6. Ileus present on CAT scan. Improved patient is tolerating diet well Hospital course: This is a 77-year-old female, patient of Dr. Espinal. She has a known past medical history of multiple food ALLERGIES with severe ALLERGIC reaction with symptoms of diarrhea and rash. She also has a history of hypothyroidism. Patient reports she had 2 days of persistent diarrhea. Then she proceeded to go to the grocery store and at the grocery store she had severe abdominal pain across the center of her abdomen and then vomited once. She came into the emergency room for further evaluation and treatment. She had a computed tomography scan of the abdomen and pelvis with contrast showing atherosclerotic vascular disease. Irregular thin-walled cystic mass in the posterior body of the pancreas. This is nonspecific but could consider inflammatory or neoplastic process. There are a few mesenteric and celiac and retroperitoneal lymph nodes. Distended fluid-filled small bowel consistent with ileus. Sclerotic foci in the lumbar spine could relate to variable osteoporosis. Osteoblastic disease is not entirely excluded. Patient also had elevated lipase of 566 elevated AST of 85 ALT 60 and white count 14. GI service has been consulted. Chest x-ray was negative KUB negative EKG normal sinus rhythm. She was started on IV fluids and made nothing by mouth. Stool for C. diff is negative. Awaiting other stool studies. Patient reports no further abdominal pain. She is still having frequent diarrhea. This is lasting longer than a typical food ALLERGY diarrhea. She reports that usually last about 24 hours. She has been dealing with these food ALLERGIES for about 3-4 years. She has had about a 40 pound weight loss over the past year. Denies any night sweats. Denies any alcohol or smoking history. Denies any previous cancer history. 11/11/2017 patient has had no further abdominal pain. Reports improvement in her bowel movements. Last stool was at 6:00 this morning and it was partially formed. She denies any blood in the stools. She did receive a liquid diet last night did have diarrhea after eating. She is scheduled for an MRI of the abdomen today for further evaluation of the pancreatic cystic mass. Patient denies any further vomiting. Denies any chest pain or shortness of breath. Denies any difficulty with urinating or any burning with urination. On 11/12/2017 patient is doing better she is sitting up at the edge of her bed eating her meal, she denies any nausea or vomiting no abdominal pain, diarrhea has improved significantly, findings as above was pancreatic cyst, no intervention recommended during this admission for gastroenterology, patient was evaluated by Dr. Barraza this morning and was cleared for discharge, she will be followed as outpatient for further evaluation including endoscopic ultrasound which will be arranged at [facility]. Patient informed of the findings on computed tomography scan and MRI and the importance of following up with gastroenterology as outpatient for further testing. She will be discharged home today, she will follow-up with her primary care physician Dr. Espinal within one week. Patient Condition at Discharge: Good Plan - Discharge Summary Discharge Rx Participant: No New Discharge Prescriptions: Continue Vit A/Vit C/Vit E/Zinc/Copper [ICAPS SOFTGEL] 1 cap PO DAILY Levothyroxine Sodium [Synthroid] 25 mcg PO DAILY Cholecalciferol [Vitamin D3] 1,000 unit PO DAILY L.acidoph,Paracasei, B.lactis [Probiotic] 1 cap PO DAILY diphenhydrAMINE [Benadryl] 25 - 50 mg PO Q6HR PRN PRN Reason: Allergic Reaction EPINEPHrine [Epipen 2-Imchael] 0.3 mg IM ONCE PRN PRN Reason: Anaphylaxis Calcium Carbonate [Tums] 500 mg PO DAILY Discharge Medication List Cholecalciferol [Vitamin D3] 1,000 unit PO DAILY 12/03/16 [History] L.acidoph,Paracasei, B.lactis [Probiotic] 1 cap PO DAILY 12/03/16 [History] Levothyroxine Sodium [Synthroid] 25 mcg PO DAILY 12/03/16 [History] Vit A/Vit C/Vit E/Zinc/Copper [ICAPS SOFTGEL] 1 cap PO DAILY 12/03/16 [History] Calcium Carbonate [Tums] 500 mg PO DAILY 11/09/17 [History] EPINEPHrine [Epipen 2-Michael] 0.3 mg IM ONCE PRN 11/09/17 [History] diphenhydrAMINE [Benadryl] 25 - 50 mg PO Q6HR PRN 11/09/17 [History] Follow up Appointment(s)/Referral(s): Rosemarie Espinal MD [Primary Care Provider] - 1-2 days Gustabo Banks MD [REFERRING] - 2 Weeks (For Endoscopic ultrasound evaluation of distal pancreatic cyst seen on CT and MRI. PLEASE call Tuesday for appt)
[2017-11-18 17:24] LABS: Cryptosporidium parvum Not detected (Not detected); Isospora belli Not detected (Not detected); Microsporidium Not detected (Not detected); Routine Ova and Parasites Not detected; White Cells Not detected (Not detected)
== END 2017-11-12 13:50 | disposition home or self-care (01) | DRG 392 ==
LOC: EC 14:38 → 5MS5E 19:46 → 6PED 11-10 18:44
PROVIDERS: ADMIT Internal Medicine; ATTEND Internal Medicine
DX: K52.9 Noninfective gastroenteritis and colitis, unspecified (principal); K56.7 Ileus, unspecified; K86.2 Cyst of pancreas; E03.9 Hypothyroidism, unspecified; H35.30 Unspecified macular degeneration; K21.9 Gastro-esophageal reflux disease without esophagitis; M81.0 Age-related osteoporosis without current pathological fracture; K57.90 Diverticulosis of intestine, part unspecified, without perforation or abscess without bleeding; M19.90 Unspecified osteoarthritis, unspecified site; R21 Rash and other nonspecific skin eruption; R63.4 Abnormal weight loss; R74.8 Abnormal levels of other serum enzymes; N39.3 Stress incontinence (female) (male); B35.3 Tinea pedis; Z90.710 Acquired absence of both cervix and uterus; Z90.49 Acquired absence of other specified parts of digestive tract; Z87.891 Personal history of nicotine dependence; Z90.721 Acquired absence of ovaries, unilateral; Z79.890 Hormone replacement therapy; Z79.899 Other long term (current) drug therapy; Z88.8 Allergy status to other drugs, medicaments and biological substances; Z91.030 Bee allergy status; Z91.040 Latex allergy status; Z88.5 Allergy status to narcotic agent; Z91.013 Allergy to seafood; Z98.42 Cataract extraction status, left eye; Z98.41 Cataract extraction status, right eye; Z96.1 Presence of intraocular lens; Z82.49 Family history of ischemic heart disease and other diseases of the circulatory system
CPT/HCPCS: 36415; 71046; 74018; 74177; 74183; 80053; 81001; 82150; 83605; 83630; 83690; 84484; 85025; 86301; 87045; 87046; 87077; 87086; 87177; 87186; 87207; 87209; 87324; 93005; 99285

== ENCOUNTER → 2018-02-14 | Outpatient (CLI) | payer MEDICARE, BC ==
--- NOTE | 2018-02-20 10:14 | MM ---
Reason for exam: screening (asymptomatic). Last mammogram was performed 1 year and 3 months ago. History: Patient is postmenopausal. Benign stereotactic core biopsy of the left breast, July 29, 2003. Benign excisional biopsy of the right breast. Took estrogen for 10 years beginning at age 40. Took progesterone for 10 years. Physical Findings: A clinical breast exam by your physician is recommended on an annual basis and results should be correlated with mammographic findings. MG 3D Screening Mammo W/Cad Bilateral CC and MLO view(s) were taken. Prior study comparison: November 24, 2016, bilateral MG 3d screening mammo w/cad. November 12, 2015, bilateral MG 3d screening mammo w/cad. The breast tissue is heterogeneously dense. This may lower the sensitivity of mammography. Previous mammotome biopsy in the left breast. Stable round and punctate scattered, regional and grouped calcifications on the left. No significant changes when compared with prior studies. ASSESSMENT: Benign, BI-RAD 2 RECOMMENDATION: Routine screening mammogram of both breasts in 1 year.
== END ==
LOC: RADMAMWWP 13:22
PROVIDERS: ATTEND Family Medicine
DX: Z12.31 Encounter for screening mammogram for malignant neoplasm of breast (principal)
CPT/HCPCS: 77063; 77067

== ENCOUNTER 2018-02-26 19:17 | Emergency (ER) | payer MEDICARE, BC ==
[2018-02-26 19:31] VITALS: TEMP 98.3
[2018-02-26] MEDS ORDERED: MORPHINE SULFATE 4 MG/ML SYRINGE IM STA (20:02)
--- NOTE | 2018-02-26 20:56 | XR ---
EXAMINATION TYPE: XR knee complete LT DATE OF EXAM: 02/26/2018 COMPARISON: NONE HISTORY: Knee pain TECHNIQUE: 3 views FINDINGS: I see no fracture nor dislocation. There is osteopenia. Joint spaces are fairly normal. The re is no sign of joint effusion. IMPRESSION: No acute abnormality of the left knee. Osteopenia.
--- NOTE | 2018-02-26 20:57 | XR ---
EXAMINATION TYPE: XR tibia fibula LT DATE OF EXAM: 02/26/2018 COMPARISON: NONE HISTORY: Pain TECHNIQUE: 4 views FINDINGS: There is osteopenia. Ankle mortise is anatomic. Knee joint appears intact. I see no fractur e nor dislocation. IMPRESSION: No acute abnormality of the left tibia and fibula.
--- NOTE | 2018-02-26 20:58 | XR ---
EXAMINATION TYPE: XR femur LT DATE OF EXAM: 02/26/2018 COMPARISON: NONE HISTORY: Pain and swelling TECHNIQUE: 4 views FINDINGS: I see no fracture nor dislocation. Hip joint and knee joint appear intact. There are no pat hologic calcifications. There is some osteopenia. IMPRESSION: No acute abnormality of the left femur.
[2018-02-26 21:03] VITALS: RESP 16
--- NOTE | 2018-02-26 21:28 | ED ---
Fall HPI - General Chief Complaint: Fall Stated Complaint: left leg swelling Time Seen by Provider: 02/26/18 19:35 Source: patient Mode of arrival: wheelchair - History of Present Illness Initial Comments: His and is a 77-year-old female presenting for left knee pain. The patient states that she had a mechanical fall on ice on February 14 and injured the left knee and left henderson. She went to see her family doctor on Tuesday but the doctor did not perform any x-rays she states that since that time, she has been having worsening pain in the knee as well as in the back of the calf and states that she is having more and more difficulty ambulating as well. She denies taking any blood thinners and states that there is some discomfort on the back of her leg in the knee is more swollen than normal. - Related Data Home Medications Medication Instructions Recorded Confirmed Cholecalciferol [Vitamin D3] 1,000 unit PO DAILY 12/03/16 11/09/17 L.acidoph,Paracasei, B.lactis 1 cap PO DAILY 12/03/16 11/09/17 [Probiotic] Levothyroxine Sodium [Synthroid] 25 mcg PO DAILY 12/03/16 11/09/17 Vit A/Vit C/Vit E/Zinc/Copper 1 cap PO DAILY 12/03/16 11/09/17 [ICAPS SOFTGEL] Calcium Carbonate [Tums] 500 mg PO DAILY 11/09/17 11/09/17 EPINEPHrine [Epipen 2-Michael] 0.3 mg IM ONCE PRN 11/09/17 11/09/17 diphenhydrAMINE [Benadryl] 25 - 50 mg PO Q6HR PRN 11/09/17 11/09/17 Previous Rx's Medication Instructions Recorded HYDROcodone/APAP 10-325MG [Hospers 1 tab PO Q6HR PRN 3 Days #12 tab 02/26/18 10-325] Allergies Allergy/AdvReac Type Severity Reaction Status Date / Time apple Allergy Rash/Hives Verified 02/26/18 19:31 banana Allergy Rash/Hives Verified 02/26/18 19:31 bee venom protein (honey bee) Allergy Swelling Verified 02/26/18 19:31 Beef Containing Products Allergy Nausea & Verified 02/26/18 19:31 [Beef] Vomiting & Diarrhea chicken derived [Chicken] Allergy Nausea & Verified 02/26/18 19:31 Vomiting & Diarrhea codeine Allergy Unknown Verified 02/26/18 19:31 potato Allergy Nausea & Verified 02/26/18 19:31 Vomiting & Diarrhea tomato Allergy Rash/Hives Verified 02/26/18 19:31 wheat Allergy Nausea & Verified 02/26/18 19:31 Vomiting & Diarrhea Yeast Allergy Rash/Hives Verified 02/26/18 19:31 latex AdvReac Itching Verified 02/26/18 19:31 casein protein Allergy Nausea & Uncoded 02/26/18 19:31 Vomiting & Diarrhea cod fish Allergy Rash/Hives Uncoded 02/26/18 19:31 maize Allergy Rash/Hives Uncoded 02/26/18 19:31 Review of Systems ROS Statement: Those systems with pertinent positive or pertinent negative responses have been documented in the HPI. Constitutional: Negative for chills, fatigue and fever. HENT: Negative for congestion. Respiratory: Negative for chest tightness, shortness of breath and wheezing. Negative for cough Cardiovascular: Negative for chest pain and palpitations. Gastrointestinal: Negative for abdominal pain. Negative for abdominal distention , diarrhea, nausea and vomiting. Genitourinary: Negative for dysuria. Musculoskeletal: Negative for back pain, neck pain and neck stiffness. Positive for left knee pain and left leg pain Skin: Negative for color change. Neurological: Negative for dizziness, speech difficulty, weakness and light- headedness. Psychiatric/Behavioral: Negative for agitation and confusion. Negative for anxiety ROS Other: All systems not noted in ROS Statement are negative. Past Medical History Past Medical History: GERD/Reflux, Osteoarthritis (OA), Thyroid Disorder Additional Past Medical History / Comment(s): diverticulosis, goiter/thyroid, sinus problems. very sensative thin fragile skin. stated has rash on trunk. chronic atheletes foot, stress incont of urine, macular degeneration nori eyes. pt stated she received the hepatits a vaccine and shingels vaccine 2017 History of Any Multi-Drug Resistant Organisms: None Reported Past Surgical History: Cholecystectomy, Hysterectomy Additional Past Surgical History / Comment(s): cataracts, colonoscopy, nori breast bx-neg, cyst removed from rt breast, oppherectomy then total hysterectomy , lt breast has marker for mammogram Past Anesthesia/Blood Transfusion Reactions: Motion Sickness Past Psychological History: No Psychological Hx Reported Smoking Status: Former smoker Past Alcohol Use History: None Reported Past Drug Use History: None Reported - Past Family History Mother Family Medical History: Hypertension Additional Family Medical History / Comment(s): mva- head injury- from complications Father Family Medical History: Coronary Artery Disease (CAD) Additional Family Medical History / Comment(s): heart problems General Exam - General Exam Comments Initial Comments: Constitutional: Pt is oriented to person, place, and time. Pt appears well- developed and well-nourished. No distress. HENT: Head: Normocephalic and atraumatic. Eyes: EOM are normal. Neck: Normal range of motion. Neck supple. Cardiovascular: Normal rate, regular rhythm, S1 normal, S2 normal and normal heart sounds. Exam reveals no gallop and no friction rub. No murmur heard. Pulmonary/Chest: Effort normal and breath sounds normal. No tachypnea and no bradypnea. No respiratory distress. No wheezes or rales noted. Abdominal: Soft. Bowel sounds are normal. Pt exhibits no shifting dullness, no distension, no pulsatile liver, no fluid wave, no abdominal bruit and no ascites. There is no tenderness. There is no rigidity, no rebound, no guarding, no tenderness at McBurney's point and negative Davey's sign. Musculoskeletal: Normal range of motion of right leg. Decreased flexion of the left knee and effusion of the left knee is present. There is mild diffuse tenderness with no focal pinpoint tenderness. Legs bilaterally are warm with 2 + DP and PT pulses palpable Neurological: Pt is alert and oriented to person, place, and time. No cranial nerve deficit. Skin: Skin is warm and dry. No rash noted. Pt is not diaphoretic. No erythema. No pallor. Psychiatric: Pt has a normal mood and affect. Pt behavior is normal. Thought content normal. Limitations: no limitations Course Vital Signs 02/26/18 02/26/18 19:28 20:57 Temperature 98.3 F Pulse Rate 83 83 Respiratory 20 16 Rate Blood Pressure 139/88 131/65 O2 Sat by Pulse 99 96 Oximetry Medical Decision Making - Medical Decision Making X-rays of the knee, femur, tibia/fibula were noted to be negative and ultrasound of lower extremity was also negative for DVT. Patient's pain was well controlled as well and it was advised that the source of the effusion was likely secondary to ensure articular pathology such as an ACL or MCL sprain or tear. Because of this, it was advised that a knee immobilizer should be used and that she should follow up with orthopedics in 1-2 days. Patient was agreeable to plan. Disposition Clinical Impression: Left knee pain Disposition: HOME SELF-CARE Condition: Good Instructions: Fall Prevention for Older Adults (ED) Prescriptions: HYDROcodone/APAP 10-325MG [Hospers 10-325] 1 tab PO Q6HR PRN 3 Days #12 tab PRN Reason: Pain Is patient prescribed a controlled substance at d/c from ED?: Yes When asked, does pt state using other controlled substances?: No If prescribed controlled substance>3 days was MAPS reviewed?: Prescribed <3 Days If opioid is for acute pain is fill amount 7 days or less?: Yes If Rx opioid, was Start Talking consent form obtained?: Yes Referrals: Rosemarie Espinal MD [Primary Care Provider] - 1-2 days Sanford Davey MD [STAFF PHYSICIAN] - 1-2 days Time of Disposition: 22:27
--- NOTE | 2018-02-26 21:52 | US ---
EXAMINATION TYPE: US venous doppler duplex LE LT DATE OF EXAM: 02/26/2018 8:05 PM COMPARISON: CLINICAL HISTORY: Pain. Left leg pain. Swelling. No redness. No hx of blood clots or blood thinner s. SIDE PERFORMED: Left TECHNIQUE: The lower extremity deep venous system is examined utilizing real time linear array sonog vielka with graded compression, doppler sonography and color-flow sonography. VESSELS IMAGED: External Iliac Vein (EIV) Common Femoral Vein Deep Femoral Vein Greater Saphenous Vein * Femoral Vein Popliteal Vein Small Saphenous Vein * Proximal Calf Veins (* superficial vessels) Left Leg: Negative for DVT IMPRESSION: Normal left leg duplex venous sonogram.
[2018-02-26] MEDS ORDERED: HYDROcodone/APAP 10-325MG 1 EACH TAB PO ONE (22:33)
[2018-02-26 22:58] VITALS: BP 132/69; PULSE 82
== END 2018-02-26 22:50 | disposition home or self-care (01) ==
LOC: EC 19:17
DX: M25.461 Effusion, right knee (principal); M19.90 Unspecified osteoarthritis, unspecified site; E04.9 Nontoxic goiter, unspecified; H35.30 Unspecified macular degeneration; Z79.899 Other long term (current) drug therapy; Z87.891 Personal history of nicotine dependence; Z91.018 Allergy to other foods; Z91.030 Bee allergy status; Z88.5 Allergy status to narcotic agent; Z91.040 Latex allergy status; Z91.013 Allergy to seafood; Z98.42 Cataract extraction status, left eye; Z98.41 Cataract extraction status, right eye
CPT/HCPCS: 73552; 73590; 73562; 93971; 99284; 96372; J2270

== ENCOUNTER 2018-05-11 12:45 | Inpatient (IN) | payer MEDICARE, BC ==
[2018-05-11] MEDS ORDERED: ONDANSETRON 4 MG/2 ML VIAL IVP STA (14:20)
[2018-05-11] MEDS ORDERED: MORPHINE SULFATE 4 MG/ML SYRINGE IVP STA (14:20)
--- NOTE | 2018-05-11 14:37 | ED ---
General Adult HPI - General Chief complaint: Extremity Problem,Nontraumatic Stated complaint: Fall Time Seen by Provider: 05/11/18 14:14 Source: patient, RN notes reviewed Mode of arrival: EMS Limitations: no limitations - History of Present Illness Initial comments: 77-year-old female presents to the emergency department for a chief complaint of bilateral knee pain occurring about 30 minutes prior to arrival. Patient states she was leaning into her car to reach across the [place] when she felt her right knee give out and twist. Patient states it hit the left knee and twisted into the left knee. She states she slowly lowered herself to the ground. Patient denies hitting her head. She denies any neck or back pain. She denies any dizziness or lightheadedness preceding this. Patient now admits to nausea and states she feels nauseous when she has pain. Patient received 100 mcs of fentanyl in the ambulance. Patient states she is unable to bend her knees or bear weight. Patient does admit to injuring her knees about 8 months ago when she fell in October and states she had a "deep bone bruise." She states she has also had left knee problems for the past several weeks and just finished physical therapy for this and was doing much better. Patient has been seeing Dr. Davey for this. Patient has no other complaints at this time including shortness of breath, chest pain, abdominal pain, headache, or visual changes. - Related Data Home Medications Medication Instructions Recorded Confirmed Cholecalciferol [Vitamin D3] 1,000 unit PO DAILY 12/03/16 05/11/18 L.acidoph,Paracasei, B.lactis 1 cap PO DAILY 12/03/16 05/11/18 [Probiotic] Levothyroxine Sodium [Synthroid] 25 mcg PO DAILY 12/03/16 05/11/18 Vit A/Vit C/Vit E/Zinc/Copper 1 cap PO DAILY 12/03/16 05/11/18 [ICAPS SOFTGEL] Calcium Carbonate [Tums] 500 mg PO DAILY 11/09/17 05/11/18 EPINEPHrine [Epipen 2-Michael] 0.3 mg IM ONCE PRN 11/09/17 05/11/18 diphenhydrAMINE [Benadryl] 25 - 50 mg PO Q6HR PRN 11/09/17 05/11/18 Previous Rx's Medication Instructions Recorded HYDROcodone/APAP 10-325MG [[place] 1 tab PO Q6HR PRN 3 Days #12 tab 02/26/18 10-325] Allergies Allergy/AdvReac Type Severity Reaction Status Date / Time apple Allergy Rash/Hives Verified 05/11/18 13:47 banana Allergy Rash/Hives Verified 05/11/18 13:47 bee venom protein (honey bee) Allergy Swelling Verified 05/11/18 13:47 Beef Containing Products Allergy Nausea & Verified 05/11/18 13:47 [Beef] Vomiting & Diarrhea chicken derived [Chicken] Allergy Nausea & Verified 05/11/18 13:47 Vomiting & Diarrhea codeine Allergy Unknown Verified 05/11/18 13:47 potato Allergy Nausea & Verified 05/11/18 13:47 Vomiting & Diarrhea tomato Allergy Rash/Hives Verified 05/11/18 13:47 wheat Allergy Nausea & Verified 05/11/18 13:47 Vomiting & Diarrhea Yeast Allergy Rash/Hives Verified 05/11/18 13:47 latex AdvReac Itching Verified 05/11/18 13:47 casein protein Allergy Nausea & Uncoded 02/26/18 19:31 Vomiting & Diarrhea cod fish Allergy Rash/Hives Uncoded 02/26/18 19:31 maize Allergy Rash/Hives Uncoded 02/26/18 19:31 Review of Systems ROS Statement: Those systems with pertinent positive or pertinent negative responses have been documented in the HPI. ROS Other: All systems not noted in ROS Statement are negative. Past Medical History Past Medical History: GERD/Reflux, Osteoarthritis (OA), Thyroid Disorder Additional Past Medical History / Comment(s): diverticulosis, goiter/thyroid, sinus problems. very sensative thin fragile skin. stated has rash on trunk. chronic atheletes foot, stress incont of urine, macular degeneration nori eyes. pt stated she received the hepatits a vaccine and shingels vaccine 2017 History of Any Multi-Drug Resistant Organisms: None Reported Past Surgical History: Cholecystectomy, Hysterectomy Additional Past Surgical History / Comment(s): cataracts, colonoscopy, nori breast bx-neg, cyst removed from rt breast, oppherectomy then total hysterectomy , lt breast has marker for mammogram Past Anesthesia/Blood Transfusion Reactions: Motion Sickness Past Psychological History: No Psychological Hx Reported Smoking Status: Former smoker Past Alcohol Use History: None Reported Past Drug Use History: None Reported - Past Family History Mother Family Medical History: Hypertension Additional Family Medical History / Comment(s): mva- head injury- from complications Father Family Medical History: Coronary Artery Disease (CAD) Additional Family Medical History / Comment(s): heart problems General Exam Limitations: no limitations General appearance: anxious Head exam: Present: atraumatic, normocephalic, normal inspection Eye exam: Present: normal appearance, PERRL, EOMI. Absent: scleral icterus, conjunctival injection, periorbital swelling ENT exam: Present: normal exam, normal oropharynx, mucous membranes moist, normal external ear exam Neck exam: Present: normal inspection, full ROM. Absent: tenderness, meningismus, lymphadenopathy Respiratory exam: Present: normal lung sounds bilaterally. Absent: respiratory distress, wheezes, rales, rhonchi, stridor Cardiovascular Exam: Present: regular rate, normal rhythm, normal heart sounds. Absent: systolic murmur, diastolic murmur, rubs, gallop, clicks GI/Abdominal exam: Present: soft, normal bowel sounds. Absent: distended, tenderness, guarding, rebound, rigid Extremities exam: Present: tenderness (Generalized tenderness to the anterior bilateral knees), normal capillary refill (Capillary refill less than 2 seconds and DP pulses 2+ in lower extremities bilaterally.), joint swelling (nori edema noted to the anterior bilateral knees without ecchymosis or abrasions.), other ( sensation intact in BLE). Absent: full ROM (Patient unable to bend bilateral knees.) Back exam: Absent: vertebral tenderness Neurological exam: Present: alert, oriented X3, CN II-XII intact Psychiatric exam: Present: normal affect, normal mood Course Vital Signs 05/11/18 05/11/18 05/11/18 13:13 13:30 14:00 Temperature 98.2 F Pulse Rate 58 L Respiratory 18 20 20 Rate Blood Pressure 123/85 123/85 153/76 O2 Sat by Pulse 97 98 98 Oximetry 05/11/18 05/11/18 05/11/18 14:30 15:00 15:30 Temperature Pulse Rate 89 98 Respiratory 20 22 16 Rate Blood Pressure 148/100 112/99 99/68 O2 Sat by Pulse 92 L 86 L 92 L Oximetry 05/11/18 05/11/18 05/11/18 16:00 16:30 17:00 Temperature Pulse Rate 98 99 102 H Respiratory 16 20 20 Rate Blood Pressure 123/68 137/73 133/65 O2 Sat by Pulse 98 92 L Oximetry 05/11/18 17:30 Temperature 101 F H Pulse Rate 99 Respiratory 22 Rate Blood Pressure 132/65 O2 Sat by Pulse 95 Oximetry - Reevaluation(s) Reevaluation #1: 05/11/18 17:57 Notified by RN after admission that patient has a fever after last vitals. Patient apparently had 6 warm blankets on her at the time. Therefore I added a urinalysis, urine culture, blood culture. Chest x-ray pending. Medical Decision Making - Medical Decision Making 77-year-old female presents to the emergency department for a chief bilateral knee pain after injury today. Patient did not fall on her knees but states she twisted. Patient presents diaphoretic and nauseous. According to family this is how she reacts when she is in significant pain. Patient did receive 100 mcs of fentanyl in the ambulance. She was given 4 of Zofran and 4 of morphine. Cardiac workup was initiated which was completely negative, no history of cardiac problems. Patient given Benadryl as she started to have hives possibly from fentanyl administration. Patient reevaluated, much more comfortable, appearing back to baseline. Pain is controlled. Vascular intact in lower extremity as bilaterally with the DP pulses equal. Bilateral knee x-rays show bilateral tibial plateau fractures with depressions. CBC shows a white count of 20 which is likely reactive to fractures. Discussed case with [facility] from [facility]. She recommends bilateral CT scans of the knee without contrast as well as bilateral knee immobilizers. Patient will be admitted to orthopedics with medical consult. - Lab Data Result diagrams: 05/11/18 14:37 05/11/18 14:37 Lab Results 05/11/18 05/11/18 05/11/18 Range/Units 14:37 14:37 14:37 WBC 20.2 H (3.8-10.6) k/uL RBC 4.19 (3.80-5.40) m/uL Hgb 11.9 (11.4-16.0) gm/dL Hct 35.9 (34.0-46.0) % MCV 85.7 (80.0-100.0) fL MCH 28.3 (25.0-35.0) pg MCHC 33.1 (31.0-37.0) g/dL RDW 14.5 (11.5-15.5) % Plt Count 348 (150-450) k/uL Neutrophils % 83 % Lymphocytes % 11 % Monocytes % 4 % Eosinophils % 1 % Basophils % 0 % Neutrophils # 16.8 H (1.3-7.7) k/uL Lymphocytes # 2.3 (1.0-4.8) k/uL Monocytes # 0.8 (0-1.0) k/uL Eosinophils # 0.1 (0-0.7) k/uL Basophils # 0.1 (0-0.2) k/uL PT (9.0-12.0) sec INR (<1.2) APTT (22.0-30.0) sec Sodium 140 (137-145) mmol/L Potassium 3.9 (3.5-5.1) mmol/L Chloride 107 (98-107) mmol/L Carbon Dioxide 22 (22-30) mmol/L Anion Gap 11 mmol/L BUN 15 (7-17) mg/dL Creatinine 0.55 (0.52-1.04) mg/dL Est GFR (CKD-EPI)AfAm >90 (>60 ml/min/1.73 sqM) Est GFR (CKD-EPI)NonAf 90 (>60 ml/min/1.73 sqM) Glucose 141 H (74-99) mg/dL Calcium 9.3 (8.4-10.2) mg/dL Magnesium 1.9 (1.6-2.3) mg/dL Total Bilirubin 0.6 (0.2-1.3) mg/dL AST 20 (14-36) U/L ALT 24 (9-52) U/L Alkaline Phosphatase 91 (38-126) U/L Total Creatine Kinase 25 L (30-135) U/L CK-MB (CK-2) 0.7 (0.0-2.4) ng/mL CK-MB (CK-2) Rel Index 2.8 Troponin I <0.012 (0.000-0.034) ng/mL Total Protein 6.8 (6.3-8.2) g/dL Albumin 3.8 (3.5-5.0) g/dL 05/11/18 Range/Units 14:37 WBC (3.8-10.6) k/uL RBC (3.80-5.40) m/uL Hgb (11.4-16.0) gm/dL Hct (34.0-46.0) % MCV (80.0-100.0) fL MCH (25.0-35.0) pg MCHC (31.0-37.0) g/dL RDW (11.5-15.5) % Plt Count (150-450) k/uL Neutrophils % % Lymphocytes % % Monocytes % % Eosinophils % % Basophils % % Neutrophils # (1.3-7.7) k/uL Lymphocytes # (1.0-4.8) k/uL Monocytes # (0-1.0) k/uL Eosinophils # (0-0.7) k/uL Basophils # (0-0.2) k/uL PT 11.6 (9.0-12.0) sec INR 1.1 (<1.2) APTT 23.1 (22.0-30.0) sec Sodium (137-145) mmol/L Potassium (3.5-5.1) mmol/L Chloride (98-107) mmol/L Carbon Dioxide (22-30) mmol/L Anion Gap mmol/L BUN (7-17) mg/dL Creatinine (0.52-1.04) mg/dL Est GFR (CKD-EPI)AfAm (>60 ml/min/1.73 sqM) Est GFR (CKD-EPI)NonAf (>60 ml/min/1.73 sqM) Glucose (74-99) mg/dL Calcium (8.4-10.2) mg/dL Magnesium (1.6-2.3) mg/dL Total Bilirubin (0.2-1.3) mg/dL AST (14-36) U/L ALT (9-52) U/L Alkaline Phosphatase (38-126) U/L Total Creatine Kinase (30-135) U/L CK-MB (CK-2) (0.0-2.4) ng/mL CK-MB (CK-2) Rel Index Troponin I (0.000-0.034) ng/mL Total Protein (6.3-8.2) g/dL Albumin (3.5-5.0) g/dL Disposition Clinical Impression: Fracture of left tibial plateau, Fracture of right tibial plateau Disposition: ADMITTED IP TO THIS [facility] Condition: Fair Is patient prescribed a controlled substance at d/c from ED?: No Time of Disposition: 16:28
[2018-05-11] MEDS ORDERED: diphenhydrAMINE 50 MG/ML 1 ML VIAL IVP STA (14:55)
[2018-05-11] MEDS ORDERED: SODIUM CHLORIDE 0.9% 500 ML 500 ML IV STA (14:55)
[2018-05-11 15:03] LABS: INR 1.1 (<1.2); Partial Thromboplastin Time 23.1 sec (22.0-30.0); Prothrombin Time 11.6 sec (9.0-12.0)
[2018-05-11 15:04] LABS: ALT 24 U/L (9-52); AST 20 U/L (14-36); Albumin 3.8 g/dL (3.5-5.0); Alkaline Phosphatase 91 U/L (38-126); Anion Gap 11 mmol/L; Basophils # (A) 0.1 k/uL (0-0.2); Basophils % (A) 0 %; Blood Urea Nitrogen 15 mg/dL (7-17); Calcium 9.3 mg/dL (8.4-10.2); Carbon Dioxide 22 mmol/L (22-30); Chloride 107 mmol/L (98-107); Eosinophils # (A) 0.1 k/uL (0-0.7); Eosinophils % (A) 1 %; Glucose 141 mg/dL (74-99); HCT 35.9 % (34.0-46.0); HGB 11.9 gm/dL (11.4-16.0); Lymphocytes # (A) 2.3 k/uL (1.0-4.8); Lymphocytes % (A) 11 %; MCH 28.3 pg (25.0-35.0); MCHC 33.1 g/dL (31.0-37.0); MCV 85.7 fL (80.0-100.0); Magnesium 1.9 mg/dL (1.6-2.3); Mean Platelet Volume 6.8; Monocytes # (A) 0.8 k/uL (0-1.0); Monocytes % (A) 4 %; Neutrophils # (A) 16.8 k/uL (1.3-7.7); Neutrophils % (A) 83 %; Platelet Count 348 k/uL (150-450); Potassium 3.9 mmol/L (3.5-5.1); RBC 4.19 m/uL (3.80-5.40); RDW 14.5 % (11.5-15.5); Sodium 140 mmol/L (137-145); Total Bilirubin 0.6 mg/dL (0.2-1.3); Total Protein 6.8 g/dL (6.3-8.2); WBC 20.2 k/uL (3.8-10.6)
[2018-05-11 15:06] LABS: Creatine Kinase 25 U/L (30-135)
[2018-05-11 15:20] LABS: Creatine Kinase MB 0.7 ng/mL (0.0-2.4); Troponin I <0.012 ng/mL (0.000-0.034)
--- NOTE | 2018-05-11 15:32 | XR ---
EXAMINATION TYPE: XR knee complete bilateral DATE OF EXAM: 05/11/2018 CLINICAL HISTORY: Bilateral knee pain after fall TECHNIQUE: Three views of the bilateral knees were obtained. COMPARISON: None. FINDINGS: Left: There is a depressed acute lateral tibial plateau fracture on the left with moderate suprapatel lar lipohemarthrosis. There is underlying general osseous demineralization. Impaction fracture is int ra-articular and depression is approximately 8 mm. No additional fracture is seen on the left. Genera lized soft tissue swelling is noted. Right: There is also depression of the lateral cortex of the tibial plateau on the right with moderat e lipohemarthrosis and intra-articular extension noted on the lateral view. Depression is approximate ly 5 mm. Overlying soft tissue swelling is noted. No additional fracture is seen on the right. Genera lized underlying osseous demineralization is present. IMPRESSION: Bilateral intra-articular impaction fractures of the lateral tibial plateaus with 5 mm depression on the right and 8 mm depression on the left. There are associated bilateral moderate lipohemarthrosis w ith overlying soft tissue swelling. Underlying generalized osseous demineralization is seen.
[2018-05-11] MEDS ORDERED: ACETAMINOPHEN IV (For NPO) 1,000 MG in EMPTY BAG 1 BAG IVPB ONE (16:09)
[2018-05-11] MEDS ORDERED: MORPHINE SULFATE 4 MG/ML SYRINGE IV PRN (16:28)
[2018-05-11] MEDS ORDERED: NALOXONE 0.4 MG/ML 1 ML VIAL IV PRN (16:28)
[2018-05-11] MEDS ORDERED: ONDANSETRON 4 MG/2 ML VIAL IVP PRN (16:28)
[2018-05-11] MEDS ORDERED: OFIRMEV PER PHARMACY MISCELLANE PRN (16:30)
[2018-05-11] MEDS ORDERED: ACETAMINOPHEN IV (For NPO) 1,000 MG in EMPTY BAG 1 BAG IVPB PRN (16:37)
--- NOTE | 2018-05-11 18:00 | CT ---
EXAMINATION TYPE: CT knee LT wo con DATE OF EXAM: 05/11/2018 COMPARISON: None HISTORY: Fall today with bilateral knee pain. CT DLP: 128 mGycm Automated exposure control for dose reduction was used. FINDINGS: There is a fracture of the lateral tibial plateau with depression of the comminuted fragments 8 mm. F ragments that are depressed overall measure 2.5 cm in length. There is moderate-sized knee joint effu michael. The distal femur is intact. Medial tibial condyle is intact. There is no dislocation. Patella i s intact. IMPRESSION: DEPRESSED FRACTURE OF THE LATERAL TIBIAL PLATEAU WITH COMMINUTION. KNEE JOINT EFFUSION.
--- NOTE | 2018-05-11 18:02 | CT ---
EXAMINATION TYPE: CT knee RT wo con DATE OF EXAM: 05/11/2018 COMPARISON: None HISTORY: Fall today with bilateral knee pain. CT DLP: 128 mGycm Automated exposure control for dose reduction was used. FINDINGS: There is a depressed fracture of the lateral tibial plateau. Fragment is depressed 4 mm. Fragment ck sures 2.4 x 2.8 cm. There is no dislocation. There is moderate knee joint effusion. Patella is intact . Distal femur is intact. Proximal fibula is intact. IMPRESSION: MILDLY DEPRESSED FRACTURE OF THE LATERAL TIBIAL PLATEAU.
[2018-05-11] MEDS: SODIUM CHLORIDE 0.9% 1,000 ML IV SCH (18:05)
--- NOTE | 2018-05-11 18:14 | XR ---
EXAMINATION TYPE: XR chest 2V DATE OF EXAM: 05/11/2018 COMPARISON: NONE HISTORY: Fall. Pain. TECHNIQUE: Frontal and lateral views of the chest are obtained. FINDINGS: There is no heart failure nor confluent pneumonic infiltrate. There is minimal pleural wendi ction at the lateral left lung base. There is slight blunting of the right posterior costophrenic ang le. IMPRESSION: Minimal pleural reaction at the lung bases is new compared to old exam. Normal heart.
[2018-05-12] MEDS: HYDROcodone/APAP 10-325MG 1 EACH TAB PO PRN ×5 (01:39→23:58)
[2018-05-12] MEDS: SODIUM CHLORIDE 0.9% 1,000 ML IV SCH ×2 (05:52→20:09)
[2018-05-12] MEDS: LEVOTHYROXINE 25 MCG TAB PO SCH (05:52)
[2018-05-12 09:33] LABS: Basophils % (A) 0 %; Eosinophils # (A) 0.2 k/uL (0-0.7); Eosinophils % (A) 3 %; HGB 10.2 gm/dL (11.4-16.0); Lymphocytes # (A) 1.6 k/uL (1.0-4.8); Lymphocytes % (A) 28 %; MCH 28.7 pg (25.0-35.0); MCHC 32.8 g/dL (31.0-37.0); MCV 87.5 fL (80.0-100.0); Mean Platelet Volume 6.6; Monocytes # (A) 0.4 k/uL (0-1.0); Monocytes % (A) 7 %; Neutrophils # (A) 3.4 k/uL (1.3-7.7); Neutrophils % (A) 59 %; Platelet Count 230 k/uL (150-450); RBC 3.54 m/uL (3.80-5.40); RDW 14.5 % (11.5-15.5); WBC 5.7 k/uL (3.8-10.6)
[2018-05-12 09:37] LABS: ALT 53 U/L (9-52); AST 24 U/L (14-36); Alkaline Phosphatase 84 U/L (38-126); Anion Gap 4 mmol/L; Blood Urea Nitrogen 12 mg/dL (7-17); Calcium 8.5 mg/dL (8.4-10.2); Carbon Dioxide 27 mmol/L (22-30); Chloride 109 mmol/L (98-107); Glucose 95 mg/dL (74-99); Potassium 4.1 mmol/L (3.5-5.1); Sodium 140 mmol/L (137-145); Total Bilirubin 0.6 mg/dL (0.2-1.3); Total Protein 5.9 g/dL (6.3-8.2)
--- NOTE | 2018-05-12 10:29 | P.HPOR ---
History of Present Illness H&P Date: 05/12/18 Chief Complaint: Bilateral knee pain Patient is a 77-year-old female seen at the bedside this morning. She was admitted through the ED yesterday for a chief complaint of bilateral knee pain occurring about 30 minutes prior to arrival. Patient states that she was leaning into her car to reach across the center console when she felt her right knee give out and twist. Patient states it twisted then hit the left knee. She states she then slowly lowered herself to the ground. Patient denies hitting her head. She denies any neck or back pain. She denies any dizziness or lightheadedness preceding this. Patient states she is unable to bend her knees or bear weight. Patient does admit to injuring her knees about 8 months ago when she fell in October and states she had a "deep bone bruise." She states she has also had left knee problems for the past several weeks and just finished physical therapy for this and was doing much better. Patient has no other complaints at this time including shortness of breath, chest pain, abdominal pain, headache, or visual changes, calf pain, numbness or tingling. Review of Systems All systems: negative Constitutional: Denies chills, Denies fever Eyes: denies blurred vision, denies pain Ears, nose, mouth and throat: Denies headache, Denies sore throat Cardiovascular: Denies chest pain, Denies shortness of breath Respiratory: Denies cough Gastrointestinal: Denies abdominal pain, Denies diarrhea, Denies nausea, Denies vomiting Genitourinary: Denies dysuria, Denies hematuria Musculoskeletal: Denies myalgias Integumentary: Denies pruritus, Denies rash Neurological: Denies numbness, Denies weakness Psychiatric: Denies anxiety, Denies depression Endocrine: Denies fatigue, Denies weight change Past Medical History Past Medical History: GERD/Reflux, Osteoarthritis (OA), Thyroid Disorder Additional Past Medical History / Comment(s): ppncreatic cyst(benign-removed) diverticulosis, goiter/thyroid, sinus problems. very sensative thin fragile skin. stated has rash on trunk. chronic atheletes foot, stress incont of urine, macular degeneration nori eyes. pt stated she received the hepatits a vaccine and shingels vaccine 2017 History of Any Multi-Drug Resistant Organisms: None Reported Past Surgical History: Cholecystectomy, Hysterectomy Additional Past Surgical History / Comment(s): cataracts, colonoscopy, nori breast bx-neg, cyst removed from rt breast, oppherectomy then total hysterectomy , lt breast has marker for mammogram, benign cyst removed from pancreas. Past Anesthesia/Blood Transfusion Reactions: Motion Sickness Additional Past Anesthesia/Blood Transfusion Reaction / Comment(s): pt stated she has never had any blood transfusions Smoking Status: Former smoker - Past Family History Mother Family Medical History: Hypertension Additional Family Medical History / Comment(s): mva- head injury- from complications Father Family Medical History: Coronary Artery Disease (CAD) Additional Family Medical History / Comment(s): heart problems Medications and Allergies Home Medications Medication Instructions Recorded Confirmed Type Cholecalciferol [Vitamin D3] 1,000 unit PO DAILY 12/03/16 05/11/18 History L.acidoph,Paracasei, B.lactis 1 cap PO DAILY 12/03/16 05/11/18 History [Probiotic] Levothyroxine Sodium [Synthroid] 25 mcg PO DAILY 12/03/16 05/11/18 History Vit A/Vit C/Vit E/Zinc/Copper 1 cap PO DAILY 12/03/16 05/11/18 History [ICAPS SOFTGEL] Calcium Carbonate [Tums] 500 mg PO DAILY 11/09/17 05/11/18 History EPINEPHrine [Epipen 2-Michael] 0.3 mg IM ONCE PRN 11/09/17 05/11/18 History diphenhydrAMINE [Benadryl] 25 - 50 mg PO Q6HR PRN 11/09/17 05/11/18 History HYDROcodone/APAP 10-325MG [[place] 1 tab PO Q6HR PRN 3 Days #12 tab 02/26/1805/11 Rx 10-325] Allergies Allergy/AdvReac Type Severity Reaction Status Date / Time apple Allergy Rash/Hives Verified 05/11/18 13:47 banana Allergy Rash/Hives Verified 05/11/18 13:47 bee venom protein (honey bee) Allergy Swelling Verified 05/11/18 13:47 Beef Containing Products Allergy Nausea & Verified 05/11/18 13:47 [Beef] Vomiting & Diarrhea chicken derived [Chicken] Allergy Nausea & Verified 05/11/18 13:47 Vomiting & Diarrhea codeine Allergy Unknown Verified 05/11/18 13:47 potato Allergy Nausea & Verified 05/11/18 13:47 Vomiting & Diarrhea tomato Allergy Rash/Hives Verified 05/11/18 13:47 wheat Allergy Nausea & Verified 05/11/18 13:47 Vomiting & Diarrhea Yeast Allergy Rash/Hives Verified 05/11/18 13:47 latex AdvReac Itching Verified 05/11/18 13:47 casein protein Allergy Nausea & Uncoded 02/26/18 19:31 Vomiting & Diarrhea cod fish Allergy Rash/Hives Uncoded 02/26/18 19:31 maize Allergy Rash/Hives Uncoded 02/26/18 19:31 Physical Examination Inspection of bilateral lower extremities shows no wounds or erythema. No deformity. There are bilateral knee effusions. The knees are not hot to touch. She is tender along the joint lines at [place] knees. Full ROM is not tested due to fractures. Calves are soft and nontender. Motor and sensation is intact throughout bilateral lower extremities. 2+ DP pulse and less than 2 sec cap refill is present. Results Xrays of bilateral knees show tibial plateau fractures left worse than right regarding depression. No dislocation. There are degenerative changes - Labs Labs: Abnormal Lab Results - Last 24 Hours (Table) 05/11/18 05/11/18 05/11/18 Range/Units 14:37 14:37 14:37 WBC 20.2 H (3.8-10.6) k/uL RBC (3.80-5.40) m/uL Hgb (11.4-16.0) gm/dL Hct (34.0-46.0) % Neutrophils # 16.8 H (1.3-7.7) k/uL Chloride (98-107) mmol/L Glucose 141 H (74-99) mg/dL ALT (9-52) U/L Total Creatine Kinase 25 L (30-135) U/L Total Protein (6.3-8.2) g/dL Albumin (3.5-5.0) g/dL 05/12/18 05/12/18 Range/Units 08:53 08:53 WBC (3.8-10.6) k/uL RBC 3.54 L (3.80-5.40) m/uL Hgb 10.2 L (11.4-16.0) gm/dL Hct 31.0 L (34.0-46.0) % Neutrophils # (1.3-7.7) k/uL Chloride 109 H (98-107) mmol/L Glucose (74-99) mg/dL ALT 53 H (9-52) U/L Total Creatine Kinase (30-135) U/L Total Protein 5.9 L (6.3-8.2) g/dL Albumin 3.0 L (3.5-5.0) g/dL H & H 05/11/18 05/12/18 Range/Units 14:37 08:53 Hgb 11.9 10.2 L (11.4-16.0) gm/dL Hct 35.9 31.0 L (34.0-46.0) % Coagulation 05/11/18 Range/Units 14:37 INR 1.1 (<1.2) Result Diagrams: 05/12/18 08:53 05/12/18 08:53 Assessment and Plan (1) Fracture of left tibial plateau Narrative/Plan: CT scan of both knees have been ordered for further characterization of the fractures and management planning. She is to be in knee immobilizers when out of bed. She is to be nonweightbearing for now. Continue pain management, DVT prophylaxis and medical management. Will review CT and case with Dr. Davey and make further recommendations as appropriate. Current Visit: Yes Status: Acute Priority: Medium Code(s): S82.142A - DISPLACED BICONDYLAR FRACTURE OF LEFT TIBIA, INIT SNOMED Code(s): 504015814 (2) Fracture of right tibial plateau Current Visit: Yes Status: Acute Priority: Medium Code(s): S82.141A - DISPLACED BICONDYLAR FRACTURE OF RIGHT TIBIA, INIT SNOMED Code(s): 230493845 Time with Patient: Greater than 30
--- NOTE | 2018-05-12 13:04 | P.CONS ---
History of Present Illness - Reason for Consult Consult date: 05/12/18 Medical Management Requesting physician: Sanford Davey - History of Present Illness This is a 77-year-old female patient of Dr. Espinal. Patient presented to the hospital with complaints of bilateral knee pain. Patient reports she was leaning into her car when she felt her right knee give out and twisted and patient was unable to bear any weight on bilateral knees. Patient reports that she had injured her left knee in October 2017 which she follows with Dr. Davey. Patient denies hitting her head or losing consciousness during incident. Patient does have a past medical history of GERD, osteoarthritis, thyroid disorder, pancreatic cyst, diverticulosis, macular degeneration and anya. CT of left knee completed showing depressed fracture of the lateral tibial plateau with comminution. Knee joint effusion. CT of right knee completed showing mild to the depressed fracture of the lateral tibial plateau. Patient's initial white blood cell elevated at 20.2. She did present with a temp of 101. Chest x-ray completed showing minimal pleural reaction at the lung bases new compared to old exam. Normal heart. EKG completed showing normal sinus rhythm , nonspecific ST abnormality. At this time patient denies any chest pain or shortness breath. Patient denies nausea vomiting or diarrhea. Patient denies any urinary burning or frequency. Review of Systems please refer to HPI otherwise unremarkable Past Medical History Past Medical History: GERD/Reflux, Osteoarthritis (OA), Thyroid Disorder Additional Past Medical History / Comment(s): ppncreatic cyst(benign-removed) diverticulosis, goiter/thyroid, sinus problems. very sensative thin fragile skin. stated has rash on trunk. chronic atheletes foot, stress incont of urine, macular degeneration nori eyes. pt stated she received the hepatits a vaccine and shingels vaccine 2017 History of Any Multi-Drug Resistant Organisms: None Reported Past Surgical History: Cholecystectomy, Hysterectomy Additional Past Surgical History / Comment(s): cataracts, colonoscopy, nori breast bx-neg, cyst removed from rt breast, oppherectomy then total hysterectomy , lt breast has marker for mammogram, benign cyst removed from pancreas. Past Anesthesia/Blood Transfusion Reactions: Motion Sickness Additional Past Anesthesia/Blood Transfusion Reaction / Comm: pt stated she has never had any blood transfusions Smoking Status: Former smoker - Past Family History Mother Family Medical History: Hypertension Additional Family Medical History / Comment(s): mva- head injury- from complications Father Family Medical History: Coronary Artery Disease (CAD) Additional Family Medical History / Comment(s): heart problems Medications and Allergies Home Medications Medication Instructions Recorded Confirmed Type Cholecalciferol [Vitamin D3] 1,000 unit PO DAILY 12/03/16 05/11/18 History L.acidoph,Paracasei, B.lactis 1 cap PO DAILY 12/03/16 05/11/18 History [Probiotic] Levothyroxine Sodium [Synthroid] 25 mcg PO DAILY 12/03/16 05/11/18 History Vit A/Vit C/Vit E/Zinc/Copper 1 cap PO DAILY 12/03/16 05/11/18 History [ICAPS SOFTGEL] Calcium Carbonate [Tums] 500 mg PO DAILY 11/09/17 05/11/18 History EPINEPHrine [Epipen 2-Michael] 0.3 mg IM ONCE PRN 11/09/17 05/11/18 History diphenhydrAMINE [Benadryl] 25 - 50 mg PO Q6HR PRN 11/09/17 05/11/18 History HYDROcodone/APAP 10-325MG [[place] 1 tab PO Q6HR PRN 3 Days #12 tab 02/26/1805/11 Rx 10-325] Allergies Allergy/AdvReac Type Severity Reaction Status Date / Time apple Allergy Rash/Hives Verified 05/11/18 13:47 banana Allergy Rash/Hives Verified 05/11/18 13:47 bee venom protein (honey bee) Allergy Swelling Verified 05/11/18 13:47 Beef Containing Products Allergy Nausea & Verified 05/11/18 13:47 [Beef] Vomiting & Diarrhea chicken derived [Chicken] Allergy Nausea & Verified 05/11/18 13:47 Vomiting & Diarrhea codeine Allergy Unknown Verified 05/11/18 13:47 potato Allergy Nausea & Verified 05/11/18 13:47 Vomiting & Diarrhea tomato Allergy Rash/Hives Verified 05/11/18 13:47 wheat Allergy Nausea & Verified 05/11/18 13:47 Vomiting & Diarrhea Yeast Allergy Rash/Hives Verified 05/11/18 13:47 latex AdvReac Itching Verified 05/11/18 13:47 casein protein Allergy Nausea & Uncoded 02/26/18 19:31 Vomiting & Diarrhea cod fish Allergy Rash/Hives Uncoded 02/26/18 19:31 maize Allergy Rash/Hives Uncoded 02/26/18 19:31 Physical Exam Vitals: Vital Signs Temp Pulse Pulse Resp BP BP BP 05/12/18 07:00 98.0 F 96 16 107/58 05/12/18 03:57 89 05/12/18 00:30 97.7 F 89 16 99/59 05/11/18 19:00 99.4 F 105 H 16 120/68 05/11/18 17:30 101 F H 99 22 132/65 05/11/18 17:00 102 H 20 133/65 05/11/18 16:30 99 20 137/73 05/11/18 16:00 98 16 123/68 05/11/18 15:30 98 16 99/68 05/11/18 15:00 89 22 112/99 05/11/18 14:30 20 148/100 05/11/18 14:00 20 153/76 05/11/18 13:30 20 123/85 05/11/18 13:13 98.2 F 58 L 18 123/85 Pulse Ox 05/12/18 07:00 97 05/12/18 03:57 05/12/18 00:30 96 05/11/18 19:00 97 05/11/18 17:30 95 05/11/18 17:00 05/11/18 16:30 92 L 05/11/18 16:00 98 05/11/18 15:30 92 L 05/11/18 15:00 86 L 05/11/18 14:30 92 L 05/11/18 14:00 98 05/11/18 13:30 98 05/11/18 13:13 97 Intake and Output 05/11/18 05/12/18 05/12/18 22:59 06:59 14:59 Intake Total 590 600 Output Total 300 Balance 290 600 Intake: Intake, IV Titration 600 Amount Sodium Chloride 0.9% 1, 600 000 ml @ 75 mls/hr IV . [id number] [facility] Rx#:[id number] Oral 590 Output: Urine 300 Other: Voiding Method Bedpan Head normocephalic Neck supple Lungs clear to auscultation bilaterally no wheezing or crackles Heart regular rate and rhythm S1-S2, no rub or gallop Abdomen is soft nontender nondistended positive bowel sounds no hepatosplenomegaly Extremities no edema Neuro alert and orientated to 3 Results CBC & Chem 7: 05/12/18 08:53 05/12/18 08:53 Labs: Abnormal Lab Results - Last 24 Hours (Table) 05/11/18 05/11/18 05/11/18 Range/Units 14:37 14:37 14:37 WBC 20.2 H (3.8-10.6) k/uL RBC (3.80-5.40) m/uL Hgb (11.4-16.0) gm/dL Hct (34.0-46.0) % Neutrophils # 16.8 H (1.3-7.7) k/uL Chloride (98-107) mmol/L Glucose 141 H (74-99) mg/dL ALT (9-52) U/L Total Creatine Kinase 25 L (30-135) U/L Total Protein (6.3-8.2) g/dL Albumin (3.5-5.0) g/dL 05/12/18 05/12/18 Range/Units 08:53 08:53 WBC (3.8-10.6) k/uL RBC 3.54 L (3.80-5.40) m/uL Hgb 10.2 L (11.4-16.0) gm/dL Hct 31.0 L (34.0-46.0) % Neutrophils # (1.3-7.7) k/uL Chloride 109 H (98-107) mmol/L Glucose (74-99) mg/dL ALT 53 H (9-52) U/L Total Creatine Kinase (30-135) U/L Total Protein 5.9 L (6.3-8.2) g/dL Albumin 3.0 L (3.5-5.0) g/dL Assessment and Plan Assessment: 1. Bilateral tibial plateau fractures she being followed by ortho surgical services. CT scans reviewed per surgical services. Per orthopedic patient be knee immobilizers when out of bed to be nonweightbearing for now. Continue pain management. DVT prophylaxis per orthopedic services aspirin 325 twice a day 2. Leukocytosis. Likely reactive. Initial white blood cell 20.2. Patient did have fever of 101 on admit. Chest x-ray completed showing minimal pleural reaction at the lung bases is new compared to old exam. Urinary analysis ordered. Blood and urine culture ordered. Patient denies any signs of acute infection at this time. Repeat WBC 5.7. Patient is now afebrile 3. History of GERD 4. History of osteoarthritis 5. History of thyroid disorder continue Synthroid DVT prophylaxis aspirin. DVT prophylaxis Protonix Thank you for this consultation we will continue to follow patient closely throughout stay. Time with Patient: Greater than 30 (Greater than 60% of the total time spent in counseling and coordination of care.I performed an examination of the patient and discussed their management with the Nurse Practitioner. I have reviewed the Nurse Practitioner's notes and agree with the documented findings and plan of care)
[2018-05-12] MEDS: ASPIRIN 325 MG TAB PO SCH (20:11)
[2018-05-13] MEDS: HYDROcodone/APAP 10-325MG 1 EACH TAB PO PRN ×5 (04:47→22:34)
[2018-05-13] MEDS: LEVOTHYROXINE 25 MCG TAB PO SCH (05:29)
--- NOTE | 2018-05-13 08:40 | P.PN ---
Subjective Progress Note Date: 05/13/18 This is a 77-year-old female who was admitted through the emergency room for bilateral tibial plateau fractures. X-rays and CT's of bilateral knees are reviewed showing bilateral displaced fractures of the lateral tibial plateaus. Today, patient states that her pain is well controlled and she denies any fever/ chills, numbness, weakness or tingling. Objective - Vital Signs Vital signs: Vital Signs Temp 98.5 F 05/13/18 07:00 Pulse 72 05/13/18 07:00 Resp 16 05/13/18 07:00 BP 135/73 05/13/18 07:00 Pulse Ox 97 05/13/18 07:00 Intake & Output 05/12/18 05/13/18 05/13/18 18:59 06:59 18:59 Intake Total 590 200 Balance 590 200 Intake: Oral 590 200 Other: Voiding Method Bedpan Bedpan # Voids 2 2 2 - Exam On exam patient is resting comfortably in bed in no acute distress. There is moderate swelling of bilateral knees. Calves are soft and nontender to palpation. There is no erythema or ecchymosis. Sensation is intact bilaterally. Patient has full foot and ankle motion bilaterally. Dorsalis pedis pulses are 2+ bilaterally. Neurovascular status and circulatory status are intact. - Labs CBC & Chem 7: 05/12/18 08:53 05/12/18 08:53 Labs: Abnormal Lab Results - Last 24 Hours (Table) 05/12/18 05/12/18 Range/Units 08:53 08:53 RBC 3.54 L (3.80-5.40) m/uL Hgb 10.2 L (11.4-16.0) gm/dL Hct 31.0 L (34.0-46.0) % Chloride 109 H (98-107) mmol/L ALT 53 H (9-52) U/L Total Protein 5.9 L (6.3-8.2) g/dL Albumin 3.0 L (3.5-5.0) g/dL Microbiology - Last 24 Hours (Table) 05/11/18 19:05 Blood Culture - Preliminary Blood No Growth after 24 hours Assessment and Plan Assessment: GERD Osteoarthritis Thyroid disorder (1) Fracture of left tibial plateau Current Visit: Yes Status: Acute Priority: Medium Code(s): S82.142A - DISPLACED BICONDYLAR FRACTURE OF LEFT TIBIA, INIT SNOMED Code(s): 638439383 (2) Fracture of right tibial plateau Current Visit: Yes Status: Acute Priority: Medium Code(s): S82.141A - DISPLACED BICONDYLAR FRACTURE OF RIGHT TIBIA, INIT SNOMED Code(s): 590738774 Plan: 1. Nonweightbearing to bilateral lower extremities. 2. Knee immobilizers to bilateral lower extremities when up. 3. No surgical intervention planned at this time. 4. Continue pain control and ice to bilateral lower extremities as needed. 5. Appreciate input from medicine. 6. DVT prophylaxis with aspirin. 7. Patient is awaiting discharge to rehab.
[2018-05-13 08:55] LABS: Basophils % (A) 1 %; Eosinophils # (A) 0.3 k/uL (0-0.7); Eosinophils % (A) 5 %; HCT 34.3 % (34.0-46.0); HGB 10.9 gm/dL (11.4-16.0); Lymphocytes # (A) 1.5 k/uL (1.0-4.8); Lymphocytes % (A) 27 %; MCH 27.9 pg (25.0-35.0); MCHC 31.7 g/dL (31.0-37.0); Mean Platelet Volume 7.2; Monocytes # (A) 0.2 k/uL (0-1.0); Monocytes % (A) 4 %; Neutrophils # (A) 3.5 k/uL (1.3-7.7); Neutrophils % (A) 62 %; Platelet Count 221 k/uL (150-450); RDW 14.7 % (11.5-15.5); WBC 5.6 k/uL (3.8-10.6)
[2018-05-13 09:15] LABS: ALT 39 U/L (9-52); AST 10 U/L (14-36); Albumin 3.2 g/dL (3.5-5.0); Alkaline Phosphatase 88 U/L (38-126); Anion Gap 6 mmol/L; Blood Urea Nitrogen 8 mg/dL (7-17); Calcium 8.8 mg/dL (8.4-10.2); Carbon Dioxide 26 mmol/L (22-30); Chloride 109 mmol/L (98-107); Glucose 121 mg/dL (74-99); Potassium 4.2 mmol/L (3.5-5.1); Sodium 141 mmol/L (137-145); Total Bilirubin 0.6 mg/dL (0.2-1.3); Total Protein 6.2 g/dL (6.3-8.2)
[2018-05-13] MEDS: PANTOPRAZOLE 40 MG TABLET PO SCH (09:21)
[2018-05-13] MEDS: ASPIRIN 325 MG TAB PO SCH ×2 (09:21→20:14)
[2018-05-13] MEDS ORDERED: CALCIUM CARBONATE 500 MG CHEWABLE PO PRN (13:46)
--- NOTE | 2018-05-13 13:50 | P.PN ---
Subjective Progress Note Date: 05/13/18 This is a 77-year-old female patient of Dr. Espinal. Patient presented to the hospital with complaints of bilateral knee pain. Patient reports she was leaning into her car when she felt her right knee give out and twisted and patient was unable to bear any weight on bilateral knees. Patient reports that she had injured her left knee in October 2017 which she follows with Dr. Davey. Patient denies hitting her head or losing consciousness during incident. Patient does have a past medical history of GERD, osteoarthritis, thyroid disorder, pancreatic cyst, diverticulosis, macular degeneration and anya. CT of left knee completed showing depressed fracture of the lateral tibial plateau with comminution. Knee joint effusion. CT of right knee completed showing mild to the depressed fracture of the lateral tibial plateau. Patient's initial white blood cell elevated at 20.2. She did present with a temp of 101. Chest x-ray completed showing minimal pleural reaction at the lung bases new compared to old exam. Normal heart. EKG completed showing normal sinus rhythm , nonspecific ST abnormality. At this time patient denies any chest pain or shortness breath. Patient denies nausea vomiting or diarrhea. Patient denies any urinary burning or frequency. 05/13/2018 patient is alert and oriented 3. Patient's family at bedside. Patient planning to be DC'd to rehab on Tuesday. At this time plan per or so services is to wear knee immobilizers with any movement and to follow-up for further intervention once fractures are healed. At this time patient reports she has adequate pain control. Will add Colace for potential constipation. At this time patient denies chest pain or shortness of breath. Patient denies nausea vomiting or diarrhea. Patient denies any urinary burning or frequency. Blood cell has returned to normal. Patient has remained afebrile likely reactive Objective - Vital Signs Vital signs: Vital Signs Temp 98.5 F 05/13/18 07:00 Pulse 72 05/13/18 07:00 Resp 16 05/13/18 07:00 BP 135/73 05/13/18 07:00 Pulse Ox 97 05/13/18 07:00 Intake & Output 05/12/18 05/13/18 05/13/18 18:59 06:59 18:59 Intake Total 590 200 Balance 590 200 Intake: Oral 590 200 Other: Voiding Method Bedpan Bedpan # Voids 2 2 1 - Exam Head normocephalic Neck supple Lungs clear to auscultation bilaterally no wheezing or crackles Heart regular rate and rhythm S1-S2, no rub or gallop Abdomen is soft nontender nondistended positive bowel sounds no hepatosplenomegaly Extremities no edema Neuro alert and orientated to 3 - Labs CBC & Chem 7: 05/13/18 08:11 05/13/18 08:11 Labs: Abnormal Lab Results - Last 24 Hours (Table) 05/13/18 05/13/18 Range/Units 08:11 08:11 Hgb 10.9 L (11.4-16.0) gm/dL Chloride 109 H (98-107) mmol/L Creatinine 0.51 L (0.52-1.04) mg/dL Glucose 121 H (74-99) mg/dL AST 10 L (14-36) U/L Total Protein 6.2 L (6.3-8.2) g/dL Albumin 3.2 L (3.5-5.0) g/dL Microbiology - Last 24 Hours (Table) 05/11/18 19:05 Blood Culture - Preliminary Blood No Growth after 24 hours Assessment and Plan Assessment: 1. Bilateral tibial plateau fractures she being followed by ortho surgical services. CT scans reviewed per surgical services. Per orthopedic patient be knee immobilizers when out of bed to be nonweightbearing for now. Continue pain management. DVT prophylaxis per orthopedic services aspirin 325 twice a day 2. Leukocytosis. Likely reactive. Initial white blood cell 20.2. Patient did have fever of 101 on admit. Chest x-ray completed showing minimal pleural reaction at the lung bases is new compared to old exam. Urinary analysis ordered. Blood and urine culture ordered. Patient denies any signs of acute infection at this time. Repeat WBC 5.7. Patient is now afebrile. blood cultures currently showing no growth 3. History of GERD 4. History of osteoarthritis 5. History of thyroid disorder continue Synthroid 6. Constipation we'll add Colace 7. Macular degeneration. Patient follows with house registry rn and receives injections DVT prophylaxis aspirin. DVT prophylaxis Protonix Thank you for this consultation we will continue to follow patient closely throughout stay. patient planning to be DC'd to [facility] on Tuesday I performed an examination of the patient and discussed their management with the Nurse Practitioner. I have reviewed the Nurse Practitioner's notes and agree with the documented findings and plan of care
[2018-05-13] MEDS: DOCUSATE 100 MG CAP PO SCH (20:14)
[2018-05-14] MEDS: HYDROcodone/APAP 10-325MG 1 EACH TAB PO PRN ×2 (03:08→07:43)
[2018-05-14] MEDS: LEVOTHYROXINE 25 MCG TAB PO SCH (05:55)
[2018-05-14] MEDS: DOCUSATE 100 MG CAP PO SCH ×2 (07:42→20:25)
[2018-05-14] MEDS: PANTOPRAZOLE 40 MG TABLET PO SCH (07:43)
[2018-05-14] MEDS: ASPIRIN 325 MG TAB PO SCH ×2 (07:43→20:25)
[2018-05-14 08:17] LABS: Basophils % (A) 1 %; Eosinophils # (A) 0.4 k/uL (0-0.7); Eosinophils % (A) 7 %; HCT 34.1 % (34.0-46.0); HGB 11.2 gm/dL (11.4-16.0); Lymphocytes # (A) 1.8 k/uL (1.0-4.8); Lymphocytes % (A) 34 %; MCH 29.1 pg (25.0-35.0); MCV 88.1 fL (80.0-100.0); Mean Platelet Volume 6.6; Monocytes # (A) 0.3 k/uL (0-1.0); Monocytes % (A) 6 %; Neutrophils # (A) 2.8 k/uL (1.3-7.7); Neutrophils % (A) 53 %; Platelet Count 246 k/uL (150-450); RBC 3.86 m/uL (3.80-5.40); RDW 14.3 % (11.5-15.5); WBC 5.3 k/uL (3.8-10.6)
[2018-05-14 08:22] LABS: ALT 29 U/L (9-52); AST 8 U/L (14-36); Albumin 3.2 g/dL (3.5-5.0); Alkaline Phosphatase 83 U/L (38-126); Anion Gap 6 mmol/L; Blood Urea Nitrogen 9 mg/dL (7-17); Carbon Dioxide 26 mmol/L (22-30); Chloride 108 mmol/L (98-107); Glucose 92 mg/dL (74-99); Potassium 4.2 mmol/L (3.5-5.1); Sodium 140 mmol/L (137-145); Total Bilirubin 0.6 mg/dL (0.2-1.3); Total Protein 6.4 g/dL (6.3-8.2)
--- NOTE | 2018-05-14 08:23 | P.PN ---
Subjective Progress Note Date: 05/14/18 This is a 77-year-old female who was admitted through the emergency room for bilateral tibial plateau fractures. Patient states that her pain is improving and she denies any new complaints. Patient does state that her knee immobilizers are too big. Patient denies any fever/chills, numbness, weakness, tingling, abdominal pain, shortness of breath or chest pain. Objective - Vital Signs Vital signs: Vital Signs Temp 98.4 F 05/14/18 07:00 Pulse 71 05/14/18 07:00 Resp 16 05/14/18 07:00 BP 150/75 05/14/18 07:00 Pulse Ox 96 05/14/18 07:00 Intake & Output 05/13/18 05/14/18 05/14/18 18:59 06:59 18:59 Intake Total 440 Balance 440 Intake: Oral 440 Other: Voiding Method Bedpan Bedpan # Voids 1 1 - Exam On exam patient is resting comfortably in bed in no acute distress. There is moderate swelling of bilateral knees. Calves are soft and nontender to palpation. There is no erythema or ecchymosis. Sensation is intact bilaterally. Patient has full foot and ankle motion bilaterally. Dorsalis pedis pulses are 2+ bilaterally. Neurovascular status and circulatory status are intact. - Labs CBC & Chem 7: 05/14/18 07:38 05/13/18 08:11 Labs: Abnormal Lab Results - Last 24 Hours (Table) 05/13/18 05/13/18 05/14/18 Range/Units 08:11 08:11 07:38 Hgb 10.9 L 11.2 L (11.4-16.0) gm/dL Chloride 109 H (98-107) mmol/L Creatinine 0.51 L (0.52-1.04) mg/dL Glucose 121 H (74-99) mg/dL AST 10 L (14-36) U/L Total Protein 6.2 L (6.3-8.2) g/dL Albumin 3.2 L (3.5-5.0) g/dL Microbiology - Last 24 Hours (Table) 05/11/18 19:05 Blood Culture - Preliminary Blood No Growth after 48 hours Assessment and Plan Assessment: GERD Osteoarthritis Thyroid disorder (1) Fracture of left tibial plateau Current Visit: Yes Status: Acute Priority: Medium Code(s): S82.142A - DISPLACED BICONDYLAR FRACTURE OF LEFT TIBIA, INIT SNOMED Code(s): 191241268 (2) Fracture of right tibial plateau Current Visit: Yes Status: Acute Priority: Medium Code(s): S82.141A - DISPLACED BICONDYLAR FRACTURE OF RIGHT TIBIA, INIT SNOMED Code(s): 916456595 Plan: 1. Nonweightbearing to bilateral lower extremities. 2. Knee immobilizers to bilateral lower extremities when up. Knee immobilizers are adjusted for a better fit. 3. No surgical intervention planned at this time. 4. Continue pain control and ice to bilateral lower extremities as needed. 5. Appreciate input from medicine. 6. DVT prophylaxis with aspirin. 7. Likely discharge to rehab tomorrow.
--- NOTE | 2018-05-14 10:05 | P.PN ---
Subjective Progress Note Date: 05/14/18 This is a 77-year-old female patient of Dr. Espinal. Patient presented to the hospital with complaints of bilateral knee pain. Patient reports she was leaning into her car when she felt her right knee give out and twisted and patient was unable to bear any weight on bilateral knees. Patient reports that she had injured her left knee in October 2017 which she follows with Dr. Davey. Patient denies hitting her head or losing consciousness during incident. Patient does have a past medical history of GERD, osteoarthritis, thyroid disorder, pancreatic cyst, diverticulosis, macular degeneration and anya. CT of left knee completed showing depressed fracture of the lateral tibial plateau with comminution. Knee joint effusion. CT of right knee completed showing mild to the depressed fracture of the lateral tibial plateau. Patient's initial white blood cell elevated at 20.2. She did present with a temp of 101. Chest x-ray completed showing minimal pleural reaction at the lung bases new compared to old exam. Normal heart. EKG completed showing normal sinus rhythm , nonspecific ST abnormality. At this time patient denies any chest pain or shortness breath. Patient denies nausea vomiting or diarrhea. Patient denies any urinary burning or frequency. 05/13/2018 patient is alert and oriented 3. Patient's family at bedside. Patient planning to be DC'd to rehab on Tuesday. At this time plan per or so services is to wear knee immobilizers with any movement and to follow-up for further intervention once fractures are healed. At this time patient reports she has adequate pain control. Will add Colace for potential constipation. At this time patient denies chest pain or shortness of breath. Patient denies nausea vomiting or diarrhea. Patient denies any urinary burning or frequency. Blood cell has returned to normal. Patient has remained afebrile likely reactive On 05/14/2018 patient was seen and examined on the medical floor she is alert and oriented 3 in no apparent distress pain is well-controlled, patient is asking to decrease pain medication dose to 7.5 mg of [place] every 4 hours when necessary. On review of systems there is no fever or chills no headache or dizziness no chest pain no shortness of breath no cough no nausea or vomiting no abdominal pain no diarrhea and no urinary symptoms. Objective - Vital Signs Vital signs: Vital Signs Temp 98.4 F 05/14/18 07:00 Pulse 71 05/14/18 07:00 Resp 16 05/14/18 07:00 BP 150/75 05/14/18 07:00 Pulse Ox 96 05/14/18 07:00 Intake & Output 05/13/18 05/14/18 05/14/18 18:59 06:59 18:59 Intake Total 440 Balance 440 Intake: Oral 440 Other: Voiding Method Bedpan Bedpan Bedpan # Voids 1 1 - Exam Head normocephalic and atraumatic Neck supple no JVD no goiter Lungs clear to auscultation bilaterally no wheezing or crackles Heart regular rate and rhythm S1-S2, no rub or gallop Abdomen is soft nontender nondistended positive bowel sounds no hepatosplenomegaly Extremities no edema no cyanosis or clubbing Neuro alert and orientated to 3 no gross focal deficit - Labs CBC & Chem 7: 05/14/18 07:38 05/14/18 07:38 Labs: Abnormal Lab Results - Last 24 Hours (Table) 05/14/18 05/14/18 Range/Units 07:38 07:38 Hgb 11.2 L (11.4-16.0) gm/dL Chloride 108 H (98-107) mmol/L AST 8 L (14-36) U/L Albumin 3.2 L (3.5-5.0) g/dL Microbiology - Last 24 Hours (Table) 05/11/18 19:05 Blood Culture - Preliminary Blood No Growth after 48 hours Assessment and Plan Plan: 1. Bilateral tibial plateau fractures she being followed by ortho surgical services. CT scans reviewed per surgical services. Per orthopedic patient be knee immobilizers when out of bed to be nonweightbearing for now. Continue pain management. DVT prophylaxis per orthopedic services aspirin 325 twice a day 2. Leukocytosis. Likely reactive. Initial white blood cell 20.2. Patient did have fever of 101 on admit. Chest x-ray completed showing minimal pleural reaction at the lung bases is new compared to old exam. Urinary analysis ordered. Blood and urine culture ordered. Patient denies any signs of acute infection at this time. Repeat WBC 5.7. Patient is now afebrile. blood cultures currently showing no growth 3. History of GERD 4. History of osteoarthritis 5. History of thyroid disorder continue Synthroid 6. Constipation we'll add Colace 7. Macular degeneration. Patient follows with accounts clerk and receives injections DVT prophylaxis aspirin. GI prophylaxis Protonix Thank you for this consultation we will continue to follow patient closely throughout stay. Discharge planning to [facility] on the [facility] for rehab tomorrow
[2018-05-14] MEDS: HYDROcodone/APAP 7.5-325MG 1 EACH TAB PO PRN (18:17)
[2018-05-15] MEDS: HYDROcodone/APAP 7.5-325MG 1 EACH TAB PO PRN ×3 (02:28→15:20)
[2018-05-15] MEDS: LEVOTHYROXINE 25 MCG TAB PO SCH (05:26)
[2018-05-15 07:48] LABS: Basophils % (A) 1 %; Eosinophils # (A) 0.5 k/uL (0-0.7); Eosinophils % (A) 9 %; HCT 35.1 % (34.0-46.0); HGB 11.4 gm/dL (11.4-16.0); Lymphocytes # (A) 1.9 k/uL (1.0-4.8); Lymphocytes % (A) 37 %; MCH 28.1 pg (25.0-35.0); MCHC 32.3 g/dL (31.0-37.0); MCV 86.9 fL (80.0-100.0); Mean Platelet Volume 6.6; Monocytes # (A) 0.3 k/uL (0-1.0); Monocytes % (A) 6 %; Neutrophils # (A) 2.5 k/uL (1.3-7.7); Neutrophils % (A) 47 %; Platelet Count 270 k/uL (150-450); RBC 4.04 m/uL (3.80-5.40); RDW 14.3 % (11.5-15.5); WBC 5.3 k/uL (3.8-10.6)
[2018-05-15] MEDS: ASPIRIN 325 MG TAB PO SCH (07:57)
[2018-05-15] MEDS: DOCUSATE 100 MG CAP PO SCH (07:57)
[2018-05-15] MEDS: PANTOPRAZOLE 40 MG TABLET PO SCH (07:57)
[2018-05-15 08:02] LABS: ALT 27 U/L (9-52); AST 8 U/L (14-36); Albumin 3.2 g/dL (3.5-5.0); Alkaline Phosphatase 78 U/L (38-126); Anion Gap 5 mmol/L; Blood Urea Nitrogen 11 mg/dL (7-17); Calcium 9.1 mg/dL (8.4-10.2); Carbon Dioxide 27 mmol/L (22-30); Chloride 109 mmol/L (98-107); Glucose 97 mg/dL (74-99); Potassium 4.8 mmol/L (3.5-5.1); Sodium 141 mmol/L (137-145); Total Bilirubin 0.5 mg/dL (0.2-1.3); Total Protein 6.5 g/dL (6.3-8.2)
[2018-05-15 08:28] VITALS: PULSE 80; RESP 16
--- NOTE | 2018-05-15 09:42 | P.DS ---
Providers Date of admission: 05/11/18 17:13 Expected date of discharge: 05/15/18 Attending physician: Sanford Davey Consults: 05/11/18 17:56 Consult Physician Stat Consulting Provider: Delia Francis Consult Reason/Comments: medical management, bilat tibial plateau fractures Do you want consulting provider notified?: Yes Primary care physician: Rosemarie Espinal - Discharge Diagnosis(es) (1) Fracture of left tibial plateau Patient was admitted through the ED after a fall resulted in bilateral tibial plateau fractures. She has been managed conservatively with knee immobilizers, nonweight bearing and pain management. Her hospital course has remained without complication. On day of discharge he is afebrile, vital signs stable, labs within acceptable ranges, tolerating by mouth meds and diet, voiding without difficulty, positive flatus, denies abdominal pain or calf pain, pain is controlled on oral pain medication and has no new complaints. Neurovascular status is intact, calves are soft and nontender, abdomen soft and nontender. Review of systems is negative for numbness, tingling, fever, chills, chest pain , shortness breath, nausea, vomiting, dizziness, headaches, slurred speech or other Current Visit: Yes Status: Acute Priority: Medium (2) Fracture of right tibial plateau Current Visit: Yes Status: Acute Priority: Medium Patient Condition at Discharge: Fair Plan - Discharge Summary Discharge Rx Participant: Yes New Discharge Prescriptions: New Aspirin 325 mg PO BID #60 tab HYDROcodone/APAP 10-325MG [[place] 10-325] 1 tab PO Q4-6H PRN #42 tab PRN Reason: Pain Sennosides [Senokot] 1 tab PO BID #60 tablet No Action Vit A/Vit C/Vit E/Zinc/Copper [ICAPS SOFTGEL] 1 cap PO DAILY Levothyroxine Sodium [Synthroid] 25 mcg PO DAILY Cholecalciferol [Vitamin D3] 1,000 unit PO DAILY L.acidoph,Paracasei, B.lactis [Probiotic] 1 cap PO DAILY diphenhydrAMINE [Benadryl] 25 - 50 mg PO Q6HR PRN PRN Reason: Allergic Reaction EPINEPHrine [Epipen 2-Michael] 0.3 mg IM ONCE PRN PRN Reason: Anaphylaxis Calcium Carbonate [Tums] 500 mg PO DAILY HYDROcodone/APAP 10-325MG [[place] 10-325] 1 tab PO Q6HR PRN 3 Days #12 tab PRN Reason: Pain Discharge Medication List Cholecalciferol [Vitamin D3] 1,000 unit PO DAILY 12/03/16 [History] L.acidoph,Paracasei, B.lactis [Probiotic] 1 cap PO DAILY 12/03/16 [History] Levothyroxine Sodium [Synthroid] 25 mcg PO DAILY 12/03/16 [History] Vit A/Vit C/Vit E/Zinc/Copper [ICAPS SOFTGEL] 1 cap PO DAILY 12/03/16 [History] Calcium Carbonate [Tums] 500 mg PO DAILY 11/09/17 [History] EPINEPHrine [Epipen 2-Michael] 0.3 mg IM ONCE PRN 11/09/17 [History] diphenhydrAMINE [Benadryl] 25 - 50 mg PO Q6HR PRN 11/09/17 [History] HYDROcodone/APAP 10-325MG [[place] 10-325] 1 tab PO Q6HR PRN 3 Days #12 tab [Rx] Aspirin 325 mg PO BID #60 tab 05/13/18 [Rx] HYDROcodone/APAP 10-325MG [[place] 10-325] 1 tab PO Q4-6H PRN #42 tab 05/13/18 [Rx ] Sennosides [Senokot] 1 tab PO BID #60 tablet 05/13/18 [Rx] Follow up Appointment(s)/Referral(s): Rosemarie Espinal MD [Primary Care Provider] - 1-2 days Sanford Davey MD [STAFF PHYSICIAN] - 1 Week Activity/Diet/Wound Care/Special Instructions: Non weightbearing bilateral lower extremities Knee immobilizers when out of bed. DVT prophylaxis F/U with Dr. Davey in office take meds as directed Discharge Disposition: TRANSFER TO SNF/ECF
--- NOTE | 2018-05-15 13:40 | P.PN ---
Subjective Progress Note Date: 05/15/18 This is a 77-year-old female patient of Dr. Espinal. Patient presented to the hospital with complaints of bilateral knee pain. Patient reports she was leaning into her car when she felt her right knee give out and twisted and patient was unable to bear any weight on bilateral knees. Patient reports that she had injured her left knee in October 2017 which she follows with Dr. Davey. Patient denies hitting her head or losing consciousness during incident. Patient does have a past medical history of GERD, osteoarthritis, thyroid disorder, pancreatic cyst, diverticulosis, macular degeneration and anya. CT of left knee completed showing depressed fracture of the lateral tibial plateau with comminution. Knee joint effusion. CT of right knee completed showing mild to the depressed fracture of the lateral tibial plateau. Patient's initial white blood cell elevated at 20.2. She did present with a temp of 101. Chest x-ray completed showing minimal pleural reaction at the lung bases new compared to old exam. Normal heart. EKG completed showing normal sinus rhythm , nonspecific ST abnormality. At this time patient denies any chest pain or shortness breath. Patient denies nausea vomiting or diarrhea. Patient denies any urinary burning or frequency. 05/13/2018 patient is alert and oriented 3. Patient's family at bedside. Patient planning to be DC'd to rehab on Tuesday. At this time plan per or so services is to wear knee immobilizers with any movement and to follow-up for further intervention once fractures are healed. At this time patient reports she has adequate pain control. Will add Colace for potential constipation. At this time patient denies chest pain or shortness of breath. Patient denies nausea vomiting or diarrhea. Patient denies any urinary burning or frequency. Blood cell has returned to normal. Patient has remained afebrile likely reactive On 05/14/2018 patient was seen and examined on the medical floor she is alert and oriented 3 in no apparent distress pain is well-controlled, patient is asking to decrease pain medication dose to 7.5 mg of [place] every 4 hours when necessary. On review of systems there is no fever or chills no headache or dizziness no chest pain no shortness of breath no cough no nausea or vomiting no abdominal pain no diarrhea and no urinary symptoms. On 05/15/2018 patient is alert and oriented 3. Patient has been cleared for discharge from orthopedic services. Patient will be going to [facility]. Patient requesting [place] has been decreased. Will write a prescription for 7.5 for patient to receive a correction. At this time patient has remained afebrile. Patient denies chest pain or shortness of breath. Patient denies nausea vomiting or diarrhea. Patient denies any urinary burning or frequency Objective - Vital Signs Vital signs: Vital Signs Temp 98.0 F 05/15/18 07:00 Pulse 80 05/15/18 07:00 Resp 16 05/15/18 07:00 BP 164/82 05/15/18 07:00 Pulse Ox 96 05/15/18 07:00 Intake & Output 05/14/18 05/15/18 05/15/18 18:59 06:59 18:59 Intake Total 1200 240 Balance 1200 240 Intake: Oral 1200 240 Other: Voiding Method Bedpan Bedpan # Voids 1 - Exam Head normocephalic Neck supple Lungs clear to auscultation bilaterally no wheezing or crackles Heart regular rate and rhythm S1-S2, no rub or gallop Abdomen is soft nontender nondistended positive bowel sounds no hepatosplenomegaly Extremities no edema Neuro alert and orientated to 3 - Labs CBC & Chem 7: 05/15/18 07:18 05/15/18 07:18 Labs: Abnormal Lab Results - Last 24 Hours (Table) 05/15/18 Range/Units 07:18 Chloride 109 H (98-107) mmol/L AST 8 L (14-36) U/L Albumin 3.2 L (3.5-5.0) g/dL Microbiology - Last 24 Hours (Table) 05/11/18 19:05 Blood Culture - Preliminary Blood No Growth after 72 hours Assessment and Plan Assessment: 1. Bilateral tibial plateau fractures she being followed by ortho surgical services. CT scans reviewed per surgical services. Per orthopedic patient be knee immobilizers when out of bed to be nonweightbearing for now. Continue pain management. DVT prophylaxis per orthopedic services aspirin 325 twice a day 2. Leukocytosis. Likely reactive. Initial white blood cell 20.2. Patient did have fever of 101 on admit. Chest x-ray completed showing minimal pleural reaction at the lung bases is new compared to old exam. Urinary analysis ordered. Blood and urine culture ordered. Patient denies any signs of acute infection at this time. Repeat WBC 5.7. Patient is now afebrile. blood cultures currently showing no growth 3. History of GERD 4. History of osteoarthritis 5. History of thyroid disorder continue Synthroid 6. Constipation we'll add Colace 7. Macular degeneration. Patient follows with detective private eye and receives injections DVT prophylaxis aspirin. DVT prophylaxis Protonix Thank you for this consultation we will continue to follow patient closely throughout stay. patient planning to be DC'd to [facility] I performed an examination of the patient and discussed their management with the Nurse Practitioner. I have reviewed the Nurse Practitioner's notes and agree with the documented findings and plan of care
[2018-05-15 16:30] VITALS: BP 146/71; TEMP 98.1
== END 2018-05-15 16:40 | DRG 563 ==
LOC: EC 12:45 → 4SSUR 17:13
PROVIDERS: ADMIT Orthopaedic Surgery Sports Medicine; ATTEND Orthopaedic Surgery Sports Medicine
DX: S82.142A Displaced bicondylar fracture of left tibia, initial encounter for closed fracture (principal); S82.141A Displaced bicondylar fracture of right tibia, initial encounter for closed fracture; D72.829 Elevated white blood cell count, unspecified; E07.9 Disorder of thyroid, unspecified; H35.30 Unspecified macular degeneration; K21.9 Gastro-esophageal reflux disease without esophagitis; K59.00 Constipation, unspecified; M19.90 Unspecified osteoarthritis, unspecified site; W19.XXXA Unspecified fall, initial encounter; Z79.890 Hormone replacement therapy; Z82.49 Family history of ischemic heart disease and other diseases of the circulatory system; Z87.891 Personal history of nicotine dependence; Z90.710 Acquired absence of both cervix and uterus; Z91.81 History of falling; Z79.899 Other long term (current) drug therapy; Z91.040 Latex allergy status; Z88.5 Allergy status to narcotic agent; Z91.013 Allergy to seafood; Z91.018 Allergy to other foods; Z90.49 Acquired absence of other specified parts of digestive tract; Z98.42 Cataract extraction status, left eye; Z98.41 Cataract extraction status, right eye
CPT/HCPCS: 36415; 71046; 80053; 82550; 82553; 83036; 83735; 84484; 85025; 85610; 85730; 87040; 93005; 96374; 96375; 99285

== ENCOUNTER → 2018-05-22 | Outpatient (CLI) | payer MEDICARE, BC ==
[2018-05-22 17:45] LABS: HCT 37.1 % (34.0-46.0); HGB 11.7 gm/dL (11.4-16.0); MCH 27.5 pg (25.0-35.0); MCHC 31.4 g/dL (31.0-37.0); MCV 87.8 fL (80.0-100.0); Mean Platelet Volume 7.1; Platelet Count 346 k/uL (150-450); RBC 4.23 m/uL (3.80-5.40); RDW 14.8 % (11.5-15.5); WBC 7.8 k/uL (3.8-10.6)
[2018-05-22 17:49] LABS: INR 1.1 (<1.2); Prothrombin Time 11.3 sec (9.0-12.0)
[2018-05-22 18:02] LABS: ALT 27 U/L (9-52); AST 11 U/L (14-36); Albumin 3.8 g/dL (3.5-5.0); Alkaline Phosphatase 107 U/L (38-126); Anion Gap 8 mmol/L; Blood Urea Nitrogen 16 mg/dL (7-17); Calcium 9.8 mg/dL (8.4-10.2); Carbon Dioxide 26 mmol/L (22-30); Chloride 105 mmol/L (98-107); Glucose 104 mg/dL (74-99); Potassium 4.9 mmol/L (3.5-5.1); Sodium 139 mmol/L (137-145); Total Bilirubin 0.4 mg/dL (0.2-1.3); Total Protein 7.1 g/dL (6.3-8.2)
== END | disposition home or self-care (01) ==
LOC: LABPAT 16:56
PROVIDERS: ATTEND Orthopaedic Surgery
DX: Z01.812 Encounter for preprocedural laboratory examination (principal); Z51.81 Encounter for therapeutic drug level monitoring; Z79.01 Long term (current) use of anticoagulants
CPT/HCPCS: 36415; 80053; 85027; 85610; 85730; 87070

== ENCOUNTER 2018-05-30 12:43 | Inpatient (IN) | payer MEDICARE, BC ==
[2018-05-25 10:15] VITALS: BMI 23.1
[~2018-05-30 12:43] MED LIST: ACETAMINOPHEN TAB 500 MG TAB PO ONE; DEXAMETHASONE SOD PHOSPHATE 10 MG/ML 1 ML VIAL IV ONE; LIDOCAINE 1% 20 ML VIAL (10MG/ML) FOR IV START INTRADERMA PRN; MELOXICAM 7.5 MG TAB PO ONE; MIDAZOLAM 2 MG/2 ML VIAL IV PRN; ONDANSETRON 4 MG/2 ML VIAL IVP ONE; ROPIVACAINE 246.25 MG, EPINEPHrine 0.5 MG, KETOROLAC 30 MG, cloNIDine HCL/PF 80 MCG, WA... MISCELLANE ONE; SCOPOLAMINE 1.5MG/72HR PATCH TRANSDERM ONE; TRANEXAMIC ACID 1,000 MG in SODIUM CHLORIDE 0.9% 100 ML IVPB ONE; ceFAZolin IN SWFI 2 GM/20 ML SYRINGE IVP ONE
[2018-05-30] MEDS: LACTATED RINGERS 1,000 ML IV SCH (13:35)
[2018-05-30] MEDS ORDERED: MIDAZOLAM 2 MG/2 ML VIAL IV ONE (13:51)
[2018-05-30] MEDS ORDERED: BISACODYL 10 MG SUPP RECTAL PRN (16:12)
[2018-05-30] MEDS ORDERED: NALOXONE 0.4 MG/ML 1 ML VIAL IV PRN (16:12)
[2018-05-30] MEDS ORDERED: NA PHOS,M-B/NA PHOS,DI-BA 133 ML ENEMA RECTAL PRN (16:12)
[2018-05-30] MEDS ORDERED: HYDROcodone/APAP 5-325MG 1 EACH TAB PO PRN (16:12)
[2018-05-30] MEDS ORDERED: DIAZEPAM 5 MG TAB PO PRN (16:12)
[2018-05-30] MEDS ORDERED: HYDROmorphone 0.5 MG/0.5 ML SYRINGE IVP PRN ×2 (16:12)
[2018-05-30] MEDS ORDERED: MAGNESIUM HYDROXIDE 2,400 MG/10 ML CUP PO PRN (16:12)
[2018-05-30] MEDS ORDERED: ONDANSETRON 4 MG/2 ML VIAL IVP PRN (16:12)
[2018-05-30] MEDS ORDERED: fentaNYL (PF) 50 MCG/ML 2 ML AMP ONE (16:30)
[2018-05-30] MEDS ORDERED: PROPOFOL 10 MG/ML 20 ML VIAL IV ONE (16:30)
[2018-05-30] MEDS ORDERED: LIDOCAINE 1% INJ 10MG/ML (20 ML MDV) ONE (16:30)
[2018-05-30] MEDS ORDERED: SUCCINYLCHOLINE CHLORIDE 100 MG/5 ML SYR IV ONE (16:30)
[2018-05-30] MEDS ORDERED: MIDAZOLAM 2 MG/2 ML VIAL ONE (16:30)
[2018-05-30] MEDS ORDERED: TRANEXAMIC ACID 1,000 MG/10 ML VIAL ONE (16:30)
[2018-05-30] MEDS ORDERED: PHENYLEPHRINE-0.9% NACL SYG 1 MG/10 ML SYRINGE ONE (16:30)
[2018-05-30] MEDS ORDERED: SODIUM CHLORIDE 0.9% 100 ML BAG ONE (16:30)
[2018-05-30] MEDS ORDERED: ROPIVACAINE 1,100 MG, SODIUM CHLORIDE 0.9% 500 ML 330 ML MISCELLANE PRN ×2 (17:11)
[2018-05-30] MEDS ORDERED: LACTATED RINGERS 1,000 ML IV ONE (17:20)
--- NOTE | 2018-05-30 18:11 | P.OP ---
Date of Procedure: 05/30/18 Preoperative Diagnosis: Comminuted depressed tibial plateau fracture left knee Postoperative Diagnosis: Comminuted depressed tibial plateau fracture left knee Procedure(s) Performed: Left total knee arthroplasty Implants: [employer] Nephew Journey II CR Oxinium cruciate retaining femoral component size 5, left Ellis [employer] Nephew Legion Revision left tibial baseplate size 4 Ellis & Nephew legion press-fit stem, straight 18 mm x 120 mm Ellis [employer] Nephew Journey II, XLPE Deep Dished articular insert, size 9 mm, Size 3- 4 left [employer]hew Journey BCS resurfacing oval patellar component, 29 mm All components were cemented using [place]os R bone cement.. The articulation is Oxinium on polyethylene. Anesthesia: spinal Surgeon: Denny Gaxiola Boring Inspector #1: Seema Kidd Estimated Blood Loss (ml): 25 Pathology: other (Bone and cartilage) Condition: stable Disposition: PACU Indications for Procedure: This is an 78-year-old female that sustained I lateral tibial plateau fractures proximally 2 weeks ago. Due to the nature of her injuries, she will need to be nonweightbearing for many months. We discussed treatment options for her left knee, which included a period of immobilization followed by rehab or an immediate total knee replacement. Because of the comminution and depression of the fracture of her left knee, she will definitely need a knee replacement because of the articular cartilage damage. Performing an immediate total knee will allow her to get up and begin mobilization right away, as opposed to waiting for months, then proceed with the surgery. This was discussed at length with her and her family. This is also discussed at length and consulted with my partners.. Patient wishes to proceed with a total knee arthroplasty. Complications specific to this procedure were discussed at length, including but not limited to infection, bleeding, stiffness, and nerve injury. Patient is aware of all these complications and informed consent was obtained Operative Findings: The operative findings are consistent with a severely comminuted and depressed tibial plateau fracture of the left knee. Description of Procedure: Patient was seen in the preoperative area consent was reviewed and operative site was marked with a skin marker. An adductor canal pain catheter was placed by anesthesia in the preoperative area. Patient was then brought to the operating room and given preoperative antibiotics intravenously. A spinal anesthetic was administered by the anesthesia department. A tourniquet was placed on the upper thigh and the lower extremity was prepped and draped in usual sterile fashion. A gram of transexamic acid was given. A universal timeout was then performed which confirmed the patient's name, surgical site, ALLERGIES, and consent. The lower extremity was then exsanguinated and tourniquet was inflated to 250 mmHg. A standard and anterior midline approach to the knee was performed. The skin and subcutaneous tissue was dissected down to the patellar tendon. A medial parapatellar arthrotomy was then performed. A moderate amount of knee was encountered upon entering into the joint. The knee was then extended, the patellar was everted, and the knee was again flexed. Anterior horns of both menisci were excised, and a release was performed to the posterior medial aspect of the knee. On gross visual inspection, there was a significant depression of the lateral tibial plateau.. The femoral canal was then opened with the appropriate drill, and the intramedullary femoral cutting guide was then placed and set for 5 of valgus. The distal femoral cutting block was then pinned in place, and the distal femur was then cut. The cutting block was then removed and the cut was checked for flatness. Next, the sizing guide was then placed and set for 3 external rotation based off of the epicondylar axis and [place] line. After the femur was sized, the appropriate 4-in-1 cutting block was then pinned in place. The anterior condyles were cut without notching. The posterior and chamfer cuts were performed while protecting the collateral ligaments. The cutting block was then removed, and the femoral canal was plugged with autologous bone. Attention was then directed to the tibia. The remaining ACL was removed with a Ronguer, and the tibia was then gently subluxed forward with a large bent knee retractor. Any remaining menisci was excised. The posterior lateral corner was cauterized in order to cauterize the lateral geniculate artery. The tibial canal was then opened with the appropriate opening drill. The tibia was then hand reamed to 18 mm. The intra-medullary tibial cutting guide was then placed , set for the appropriate rotation, slope, and depth of resection. The proximal tibia cutting guide was then pinned in place. Proximal tibia was then cut and sized. After resection of the proximal tibia, there was more than sufficient bone stock of the lateral plateau for the tibial implant. There was some articular cartilage present that had been depressed more than 10 mm. The tibial boss was then drilled. Next trials were then placed with the appropriate -sized insert. The knee was able to fully extend and flex to 130 and was stable throughout all range of motion. The knee was then extended, patella everted. Patella was then measured, and then using an osteotomy guide, the patella was cut at the appropriate level. The patella was then measured and drilled and the patella trial was then placed. The knee was then taken through range of motion with the patella trial and the patella tracked normally. The knee was then extended patella trial was then removed and the patella was everted. Knee was then flexed and lug holes were drilled through the femoral trial and the femoral trial was then removed. The tibial was then exposed, and the tibial broach guide was then pinned in place after it was set for the appropriate rotation to allow for the most coverage without overhang. The tibia was then reamed and broached. The cut surfaces of bone were then irrigated with pulsatile lavage. The posterior structures were injected with the ropivacaine solution. The knee was also irrigated with Irrisept solution. The components were then opened, the cement was mixed, and the components were then cemented in place. The cement was allowed to harden with the knee in full extension. While the cement was hardening, the remaining soft tissues were then injected with a ropivacaine solution, which consisted of 246.25 mg of ropivacaine, 0.5 mg of epinephrine, 30 mg of Toradol, 80 g of clonidine, and 48.45 mL of sterile water, for a total of 100 mL of fluid injected. After the cemented hardened. The tourniquet was released, and hemostasis was obtained. A second gram of transexamic acid was given. The knee was again irrigated. The knee was again taken through range of motion and found to be stable throughout all range of motion of 0-130 , and the patella tracked normally. The fascia was then closed with #2 strata fix suture. The subcutaneous tissue was closed with 3-0 Vicryl and 3-0 strata fix. Dermabond glue was used for the skin and placed with the knee in flexion. The patient was placed in a sterile silver dressing. Patient was then transferred to recovery room in stable condition. The administrative assistant KAR Oquendo was required due the complexity surgery and the need for a skilled surgical garment assembler. She assisted in positioning, draping, retraction, and closure of the wound.
--- NOTE | 2018-05-30 19:55 | XR ---
PROCEDURE: XR knee limited LT - 2V DATE AND TIME: 05/30/2018 6:50 PM CLINICAL INDICATION: PHH; Evaluation for Postop abnormality and alignment TECHNIQUE: Department protocol COMPARISON: 05/11/2018 FINDINGS: AP and cross table lateral postoperative views were obtained. TKR appears in anatomic posit ion and alignment. Postprocedure changes noted, but no unexpected findings. IMPRESSION: Post op left knee replacement.
[2018-05-30] MEDS ORDERED: diphenhydrAMINE 50 MG CAP PO PRN (19:56)
[2018-05-30] MEDS: SODIUM CHLORIDE 0.9% 1,000 ML IV SCH ×2 (20:00→21:29)
[2018-05-30] MEDS: HYDROmorphone 0.5 MG/0.5 ML SYRINGE IVP PRN (20:03)
[2018-05-30] MEDS: ASPIRIN 325 MG TAB PO SCH (20:04)
[2018-05-30] MEDS: SENNOSIDES-DOCUSATE SODIUM 1 EACH TAB PO SCH (20:05)
[2018-05-30] MEDS: HYDROcodone/APAP 5-325MG 1 EACH TAB PO PRN (21:28)
[2018-05-31] MEDS: HYDROmorphone 0.5 MG/0.5 ML SYRINGE IVP PRN ×3 (00:08→21:53)
[2018-05-31] MEDS: ceFAZolin IN SWFI 2 GM/20 ML SYRINGE IVP SCH ×2 (00:08→08:38)
[2018-05-31] MEDS: LACTATED RINGERS 1,000 ML IV SCH (01:59)
[2018-05-31] MEDS: HYDROcodone/APAP 5-325MG 1 EACH TAB PO PRN ×4 (02:51→20:09)
[2018-05-31 07:52] LABS: Basophils % (A) 0 %; Eosinophils # (A) 0.3 k/uL (0-0.7); Eosinophils % (A) 2 %; HCT 31.8 % (34.0-46.0); HGB 10.1 gm/dL (11.4-16.0); Hypochromasia Slight; Lymphocytes # (A) 2.8 k/uL (1.0-4.8); Lymphocytes % (A) 25 %; MCH 27.9 pg (25.0-35.0); MCHC 31.9 g/dL (31.0-37.0); MCV 87.6 fL (80.0-100.0); Mean Platelet Volume 7.2; Monocytes # (A) 0.7 k/uL (0-1.0); Monocytes % (A) 6 %; Neutrophils # (A) 7.4 k/uL (1.3-7.7); Neutrophils % (A) 65 %; Platelet Count 323 k/uL (150-450); RBC 3.63 m/uL (3.80-5.40); RDW 14.7 % (11.5-15.5); WBC 11.3 k/uL (3.8-10.6)
[2018-05-31] MEDS: ASPIRIN 325 MG TAB PO SCH ×2 (08:03→20:09)
[2018-05-31] MEDS: MELOXICAM 7.5 MG TAB PO SCH (08:03)
[2018-05-31] MEDS: PANTOPRAZOLE 40 MG TABLET PO SCH (08:03)
[2018-05-31] MEDS: CALCIUM CARBONATE 500 MG CHEWABLE PO SCH (08:03)
[2018-05-31] MEDS: CHOLECALCIFEROL 1,000 UNIT TAB PO SCH (08:03)
--- NOTE | 2018-05-31 08:53 | P.PN ---
Subjective Progress Note Date: 05/31/18 This is an 78-year-old female who is status post left total knee arthroplasty due to bilateral tibial plateau fractures. This is postoperative day #1. Patient is seen and evaluated at bedside with Dr. Denny Gaxiola. Patient states that her pain is well controlled, but she has not worked with physical therapy yet. Patient denies any fever/chills, numbness, weakness, tingling, abdominal pain, shortness of breath or chest pain. Objective - Vital Signs Vital signs: Vital Signs Temp 98.7 F 05/31/18 07:12 Pulse 89 05/31/18 07:12 Resp 18 05/31/18 07:19 BP 122/59 05/31/18 07:12 Pulse Ox 96 05/31/18 08:08 Intake & Output 05/30/18 05/31/18 05/31/18 18:59 06:59 18:59 Intake Total 1400 880 Output Total 25 Balance 1375 880 Intake: IV 1400 100 Intake, IV Titration 780 Amount Sodium Chloride 0.9% 1, 780 000 ml @ 65 mls/hr IV . [id number] [facility] Rx#:[id number] Output: Estimated Blood Loss 25 Other: Voiding Method Bedpan # Voids 1 - Exam Vital signs are stable. Patient is in no acute distress and is alert and oriented 3. Calf is soft and nontender to palpation. Dressing is clean, dry, and intact. Patient has full foot and ankle motion without pain or difficulty. Neurovascular status and circulatory status are intact. - Labs CBC & Chem 7: 05/31/18 07:19 Labs: Abnormal Lab Results - Last 24 Hours (Table) 05/31/18 Range/Units 07:19 WBC 11.3 H (3.8-10.6) k/uL RBC 3.63 L (3.80-5.40) m/uL Hgb 10.1 L (11.4-16.0) gm/dL Hct 31.8 L (34.0-46.0) % Assessment and Plan Assessment: Bilateral tibial plateau fractures Status post left total knee arthroplasty GERD Thyroid disorder Macular degeneration Stress incontinence Diverticulosis (1) S/P total knee arthroplasty Current Visit: Yes Status: Acute Code(s): Z96.659 - PRESENCE OF UNSPECIFIED ARTIFICIAL KNEE JOINT SNOMED Code(s): 3109203327569 (2) Fracture of left tibial plateau Current Visit: No Status: Acute Priority: Medium Code(s): S82.142A - DISPLACED BICONDYLAR FRACTURE OF LEFT TIBIA, INIT SNOMED Code(s): 254963811 (3) Fracture of right tibial plateau Current Visit: No Status: Acute Priority: Medium Code(s): S82.141A - DISPLACED BICONDYLAR FRACTURE OF RIGHT TIBIA, INIT SNOMED Code(s): 164971324 Plan: #1 Continue with routine postoperative care and pain control, leave dressing in place for ten days. #2 Anticoagulation with aspirin. #3 Physical therapy and CPM today. #4 Appreciate input from medicine. #5 Likely discharge to [facility] tomorrow.
[2018-05-31 09:28] LABS: ALT 29 U/L (9-52); AST 13 U/L (14-36); Alkaline Phosphatase 99 U/L (38-126); Anion Gap 6 mmol/L; Blood Urea Nitrogen 18 mg/dL (7-17); Carbon Dioxide 25 mmol/L (22-30); Chloride 107 mmol/L (98-107); Glucose 85 mg/dL (74-99); Potassium 4.3 mmol/L (3.5-5.1); Sodium 138 mmol/L (137-145); Total Bilirubin 0.3 mg/dL (0.2-1.3)
--- NOTE | 2018-05-31 09:29 | P.CONS ---
History of Present Illness - Reason for Consult Consult date: 05/31/18 Medical management Requesting physician: Denny Gaxiola - History of Present Illness This is an 78-year-old female patient of Dr. Espinal well-known to my services. Patient presents to the hospital for an elective total left knee arthroplasty. On 05/11/2018 she sustained bilateral knee injuries. At that time it was found that Patient had bilateral tibial plateau fractures. At that time patient was ordered for bilateral knee immobilizer and discharged to [facility]. Additional medical history includes GERD, osteoporosis, hypothyroidism, constipation, macular degeneration and multiple food ALLERGIES. At this time patient is complaining of some left knee discomfort. Patient is currently working with physical therapy. Knee immobilizer remains on right leg. This time patient denies nausea vomiting or diarrhea. Patient denies chest pain or cough. Patient denies any urinary burning or frequency. Patient planning to be DC'd back to [facility] possibly tomorrow for physical therapy. Review of Systems Please refer to HPI otherwise unremarkable Past Medical History Past Medical History: GERD/Reflux, Osteoarthritis (OA), Thyroid Disorder Additional Past Medical History / Comment(s): pancreatic cyst(benign- removed),diverticulosis, goiter/thyroid, sinus problems. very sensitive thin fragile skin. stated has rash on trunk. chronic atheletes foot, stress incont of urine, macular degeneration nori eyes. pt stated she received the hepatits a vaccine and shingles vaccine 2016. Bilateral Tibial Fracture 05-11-18 History of Any Multi-Drug Resistant Organisms: None Reported Past Surgical History: Cholecystectomy, Hysterectomy Additional Past Surgical History / Comment(s): cataracts, colonoscopy, nori breast bx-neg, cyst removed from rt breast, oophorectomy then total hysterectomy, lt breast has marker for mammogram, benign cyst removed from pancreas. Past Anesthesia/Blood Transfusion Reactions: Motion Sickness Additional Past Anesthesia/Blood Transfusion Reaction / Comm: pt stated she has never had any blood transfusions Smoking Status: Former smoker - Past Family History Mother Family Medical History: Hypertension Additional Family Medical History / Comment(s): mva- head injury- from complications Father Family Medical History: Coronary Artery Disease (CAD) Additional Family Medical History / Comment(s): heart problems Medications and Allergies Home Medications Medication Instructions Recorded Confirmed Type Cholecalciferol [Vitamin D3] 1,000 unit PO DAILY 12/03/16 05/30/18 History L.acidoph,Paracasei, B.lactis 1 cap PO DAILY 12/03/16 05/30/18 History [Probiotic] Levothyroxine Sodium [Synthroid] 25 mcg PO DAILY 12/03/16 05/30/18 History Vit A/Vit C/Vit E/Zinc/Copper 1 cap PO DAILY 12/03/16 05/30/18 History [ICAPS SOFTGEL] Calcium Carbonate [Tums] 500 mg PO DAILY 11/09/17 05/30/18 History EPINEPHrine [Epipen 2-Michael] 0.3 mg IM ONCE PRN 11/09/17 05/30/18 History diphenhydrAMINE [Benadryl] 25 - 50 mg PO Q6HR PRN 11/09/17 05/30/18 History Aspirin 325 mg PO BID #60 tab 05/13/18 05/30/18 Rx Sennosides [Senokot] 1 tab PO BID #60 tablet 05/13/18 05/30/18 Rx Docusate [Colace] 100 mg PO BID cap 05/15/18 05/30/18 Rx Pantoprazole [Protonix] 40 mg PO AC-BRKFST tablet. 05/15/18 05/30/18 Rx Allevyn Sacrum Pad 1 applic TOPICAL Q5D 05/25/18 05/30/18 History HYDROcodone/APAP 7.5-325MG [[place] 1 tab PO Q4HR PRN 05/30/18 05/30/18 History 7.5-325] Allergies Allergy/AdvReac Type Severity Reaction Status Date / Time apple Allergy Rash/Hives Verified 05/30/18 17:21 banana Allergy Rash/Hives Verified 05/30/18 17:21 bee venom protein (honey bee) Allergy Swelling Verified 05/30/18 17:21 Beef Containing Products Allergy Nausea & Verified 05/30/18 17:21 [Beef] Vomiting & Diarrhea codeine Allergy Unknown Verified 05/30/18 17:21 gluten Allergy Nausea & Verified 05/30/18 17:21 Vomiting & Diarrhea potato Allergy Nausea & Verified 05/30/18 17:21 Vomiting & Diarrhea tomato Allergy Rash/Hives Verified 05/30/18 17:21 wheat Allergy Nausea & Verified 05/30/18 17:21 Vomiting & Diarrhea Yeast Allergy Rash/Hives Verified 05/30/18 17:21 latex AdvReac Itching Verified 05/30/18 17:21 casein protein Allergy Nausea & Uncoded 05/30/18 13:13 Vomiting & Diarrhea cod fish Allergy Rash/Hives Uncoded 05/30/18 13:13 maize Allergy Rash/Hives Uncoded 05/30/18 13:13 Physical Exam Vitals: Vital Signs Temp Pulse Pulse Resp BP Pulse Ox 05/31/18 08:08 96 05/31/18 07:19 18 05/31/18 07:12 98.7 F 89 17 122/59 96 05/31/18 02:50 18 05/31/18 00:05 97.8 F 88 15 108/66 100 05/30/18 21:35 91 107/63 05/30/18 21:20 100 105/66 05/30/18 21:05 99 115/68 05/30/18 20:52 101 H 120/65 05/30/18 20:37 96 05/30/18 20:35 102 H 122/69 05/30/18 20:20 101 H 121/67 05/30/18 20:05 105 H 134/63 05/30/18 19:50 104 H 121/66 05/30/18 19:35 98.4 F 105 H 15 117/67 92 L 05/30/18 19:15 96 16 130/63 97 05/30/18 19:00 92 16 130/56 99 05/30/18 18:45 102 H 18 125/55 99 05/30/18 18:30 97.2 F L 109 H 16 133/61 97 05/30/18 14:14 72 16 114/57 99 05/30/18 13:35 98.5 F 83 16 138/64 96 Intake and Output 05/30/18 05/31/18 05/31/18 22:59 06:59 14:59 Intake Total 1060 520 Output Total 25 Balance 1035 520 Intake: IV 800 Intake, IV Titration 260 520 Amount Sodium Chloride 0.9% 1, 260 520 000 ml @ 65 mls/hr IV . [id number] [facility] Rx#:[id number] Output: Estimated Blood Loss 25 Other: Voiding Method Bedpan # Voids 0 1 Head normocephalic Neck supple Lungs clear to auscultation bilaterally no wheezing or crackles Heart regular rate and rhythm S1-S2, no rub or gallop Abdomen is soft nontender nondistended positive bowel sounds no hepatosplenomegaly Extremities no edema. Right knee dressing clean dry and intact Neuro alert and orientated to 3 Results CBC & Chem 7: 05/31/18 07:19 Labs: Abnormal Lab Results - Last 24 Hours (Table) 05/31/18 Range/Units 07:19 WBC 11.3 H (3.8-10.6) k/uL RBC 3.63 L (3.80-5.40) m/uL Hgb 10.1 L (11.4-16.0) gm/dL Hct 31.8 L (34.0-46.0) % Assessment and Plan Assessment: 1. Status post total left knee arthroplasty with Dr. Gaxiola. Patient is currently postop day 1. Patient remains on aspirin 325 twice a day for DVT prophylaxis. Pain meds per with of surgery 2. Bilateral tibial plateau fractures. Patient's left knee remains in knee immobilizer. 3. History of GERD 4. History of macular degeneration 5. History of osteoarthritis 6. History of hypothyroidism 7. History of constipation. DVT prophylaxis aspirin. GI prophylaxis Protonix. Patient planning to be DC'd to [facility] for rehab Thank you for this consultation we will continue to follow patient closely throughout stay Time with Patient: Greater than 30 (Greater than 60% of the total time spent in counseling and coordination of care. I performed an examination of the patient and discussed their management with the Nurse Practitioner. I have reviewed the Nurse Practitioner's notes and agree with the documented findings and plan of care)
[2018-05-31] MEDS: LEVOTHYROXINE 25 MCG TAB PO SCH (11:40)
--- NOTE | 2018-05-31 12:38 | P.ONQ ---
Anesthesiology Proc Note - PNB - Peripheral Nerve Block Performed Left Adductor Canal Infusion Time Out Performed: Yes Procedure Start Time: 14:01 Procedure Stop Time: 14:11 Indication: Acute Post-Operative Pain, Requested by physician Sedation Type: Sedate with meaningful contact maintained Preparation: Sterile Dressing Position: Supine Catheter: Indwelling Needle Types: On-Q Needle Size: 100mm (4") Needle Gauge: 21 Technique: Ultrasound Injectate: 0.5% Ropivacaine (see comment for volume) (ropi .5% 20cc) Blood Aspirated: No Pain Paresthesia on Injection Noted: No Resistance on Injection: Normal Events: Uneventful and Well Tolerated
--- NOTE | 2018-05-31 12:43 | P.PN ---
Progress Note - Text 05/31 708am 78-year-old female status post total knee replacement by Dr. Denny hines. Patient has an On-Q pump for postop pain control with the solution running at 8 mL an hour with a VAS of 2. Continue On-Q pump infusion
[2018-05-31] MEDS: SENNOSIDES-DOCUSATE SODIUM 1 EACH TAB PO SCH (20:09)
[2018-05-31] MEDS: SODIUM CHLORIDE 0.9% 1,000 ML IV SCH (22:57)
[2018-06-01] MEDS: HYDROcodone/APAP 5-325MG 1 EACH TAB PO PRN (02:27)
[2018-06-01] MEDS: LACTATED RINGERS 1,000 ML IV SCH (06:17)
[2018-06-01] MEDS: LEVOTHYROXINE 25 MCG TAB PO SCH (06:47)
[2018-06-01] MEDS: HYDROmorphone 0.5 MG/0.5 ML SYRINGE IVP PRN (07:13)
[2018-06-01] MEDS: PANTOPRAZOLE 40 MG TABLET PO SCH (07:14)
[2018-06-01 07:37] VITALS: RESP 16
[2018-06-01 07:59] LABS: Basophils % (A) 1 %; Eosinophils # (A) 0.3 k/uL (0-0.7); Eosinophils % (A) 4 %; HCT 32.9 % (34.0-46.0); HGB 10.5 gm/dL (11.4-16.0); Hypochromasia Slight; Lymphocytes # (A) 1.9 k/uL (1.0-4.8); Lymphocytes % (A) 30 %; MCH 28.2 pg (25.0-35.0); MCHC 31.8 g/dL (31.0-37.0); MCV 88.9 fL (80.0-100.0); Mean Platelet Volume 6.6; Monocytes # (A) 0.4 k/uL (0-1.0); Monocytes % (A) 7 %; Neutrophils # (A) 3.5 k/uL (1.3-7.7); Neutrophils % (A) 57 %; Platelet Count 304 k/uL (150-450); RBC 3.71 m/uL (3.80-5.40); RDW 14.6 % (11.5-15.5); WBC 6.2 k/uL (3.8-10.6)
[2018-06-01 08:09] LABS: ALT 20 U/L (9-52); AST 11 U/L (14-36); Alkaline Phosphatase 102 U/L (38-126); Anion Gap 5 mmol/L; Blood Urea Nitrogen 10 mg/dL (7-17); Calcium 8.9 mg/dL (8.4-10.2); Carbon Dioxide 26 mmol/L (22-30); Chloride 108 mmol/L (98-107); Glucose 87 mg/dL (74-99); Potassium 4.5 mmol/L (3.5-5.1); Sodium 139 mmol/L (137-145); Total Bilirubin 0.5 mg/dL (0.2-1.3); Total Protein 5.9 g/dL (6.3-8.2)
[2018-06-01] MEDS ORDERED: HYDROcodone/APAP 7.5-325MG 1 EACH TAB PO PRN ×2 (08:24)
--- NOTE | 2018-06-01 08:34 | P.DS ---
Providers Date of admission: 05/30/18 12:43 Expected date of discharge: 06/01/18 Attending physician: Denny Gaxiola Consults: 05/30/18 16:12 Consult Physician Routine Consulting Provider: Rosemarie Espinal Consult Reason/Comments: medical management Do you want consulting provider notified?: Yes 05/30/18 19:44 Consult Physician Routine Consulting Provider: Delia Francis Consult Reason/Comments: medical managment Do you want consulting provider notified?: Yes Primary care physician: Rosemarie Espinal - Discharge Diagnosis(es) (1) S/P total knee arthroplasty Current Visit: Yes Status: Acute (2) Fracture of left tibial plateau Current Visit: No Status: Acute Priority: Medium (3) Fracture of right tibial plateau Current Visit: No Status: Acute Priority: Medium Hospital Course: This is an 78-year-old female who sustained bilateral tibial plateau fractures after a fall approximately 2 weeks ago. Since then the patient has had to be nonweightbearing to bilateral lower extremities. The patient was at [facility] for rehabilitation. The patient presents for evaluation as an outpatient. After discussion and consideration patient elects to proceed with left total knee arthroplasty for treatment of left tibial plateau fracture and to allow the patient to be weightbearing on the left lower extremity. The patient is seen preoperatively by Dr. Gaxiola and medically cleared for surgery by their primary care physician. Patient is admitted to [facility] on 05/30/2018 for total knee arthroplasty. The procedures performed without complication or sequelae. The patient is doing well postoperatively. Labs and vital signs are stable on day of discharge. On day of discharge patient's knee incision is healing well. There is minimal erythema. There is no drainage noted at this time. There is minimal soft tissue swelling to bilateral knees. Patient has full foot and ankle motion bilaterally without difficulty or pain. Calves are soft and nontender to palpation. Neurovascular status to bilateral lower extremities is intact. Patient is discharged to rehab in good condition. Opioid start talking form is reviewed and signed at patient bedside. Please see med rec for accurate list of home medications. Plan - Discharge Summary Discharge Rx Participant: No New Discharge Prescriptions: New Aspirin 325 mg PO BID #60 tab HYDROcodone/APAP 7.5-325MG [[place] 7.5-325] 1 - 2 tab PO Q6H PRN #56 tab PRN Reason: Pain Sennosides [Senokot] 1 tab PO BID #60 tablet No Action Vit A/Vit C/Vit E/Zinc/Copper [ICAPS SOFTGEL] 1 cap PO DAILY Levothyroxine Sodium [Synthroid] 25 mcg PO DAILY Cholecalciferol [Vitamin D3] 1,000 unit PO DAILY L.acidoph,Paracasei, B.lactis [Probiotic] 1 cap PO DAILY diphenhydrAMINE [Benadryl] 25 - 50 mg PO Q6HR PRN PRN Reason: Allergic Reaction EPINEPHrine [Epipen 2-Michael] 0.3 mg IM ONCE PRN PRN Reason: Anaphylaxis Calcium Carbonate [Tums] 500 mg PO DAILY Aspirin 325 mg PO BID #60 tab Sennosides [Senokot] 1 tab PO BID #60 tablet Docusate [Colace] 100 mg PO BID cap Pantoprazole [Protonix] 40 mg PO AC-BRKFST tablet.dr Douglas Sacrum Pad 1 applic TOPICAL Q5D HYDROcodone/APAP 7.5-325MG [[place] 7.5-325] 1 tab PO Q4HR PRN PRN Reason: Pain Discharge Medication List Cholecalciferol [Vitamin D3] 1,000 unit PO DAILY 12/03/16 [History] L.acidoph,Paracasei, B.lactis [Probiotic] 1 cap PO DAILY 12/03/16 [History] Levothyroxine Sodium [Synthroid] 25 mcg PO DAILY 12/03/16 [History] Vit A/Vit C/Vit E/Zinc/Copper [ICAPS SOFTGEL] 1 cap PO DAILY 12/03/16 [History] Calcium Carbonate [Tums] 500 mg PO DAILY 11/09/17 [History] EPINEPHrine [Epipen 2-Michael] 0.3 mg IM ONCE PRN 11/09/17 [History] diphenhydrAMINE [Benadryl] 25 - 50 mg PO Q6HR PRN 11/09/17 [History] Aspirin 325 mg PO BID #60 tab 05/13/18 [Rx] Sennosides [Senokot] 1 tab PO BID #60 tablet 05/13/18 [Rx] Docusate [Colace] 100 mg PO BID cap 05/15/18 [Rx] Pantoprazole [Protonix] 40 mg PO AC-BRKFST tablet. 05/15/18 [Rx] Allevyn Sacrum Pad 1 applic TOPICAL Q5D 05/25/18 [History] HYDROcodone/APAP 7.5-325MG [[place] 7.5-325] 1 tab PO Q4HR PRN 05/30/18 [History] Aspirin 325 mg PO BID #60 tab 06/01/18 [Rx] HYDROcodone/APAP 7.5-325MG [[place] 7.5-325] 1 - 2 tab PO Q6H PRN #56 tab 06/01/18 [Rx] Sennosides [Senokot] 1 tab PO BID #60 tablet 06/01/18 [Rx] Follow up Appointment(s)/Referral(s): [facility], [NON-STAFF] - As Needed Denny Gaxiola DO [Doctor of Osteopathic Medicine] - 2 Weeks Ambulatory/Diagnostic Orders: Continuous Passive Motion (CPM) Machine [DME.AMB1] Time Frame: 3 Weeks, Location: None Selected Activity/Diet/Wound Care/Special Instructions: Weightbearing as tolerated to the left lower extremity with a walker. Toe-touch weightbearing to the right lower extremity with knee immobilizer when out of bed. CPM 5-6h daily for the left knee. Leave dressing intact. Dressing may be removed by home care nurse or by patient in 10 days. May shower with dressing on. Please follow up with [facility] and call with any questions or concerns, . Discharge Disposition: TRANSFER TO SNF/ECF
[2018-06-01] MEDS: CHOLECALCIFEROL 1,000 UNIT TAB PO SCH (09:04)
[2018-06-01] MEDS: ASPIRIN 325 MG TAB PO SCH (09:04)
[2018-06-01] MEDS: CALCIUM CARBONATE 500 MG CHEWABLE PO SCH (09:04)
[2018-06-01] MEDS: MELOXICAM 7.5 MG TAB PO SCH (09:05)
--- NOTE | 2018-06-01 09:20 | P.PN ---
Subjective Progress Note Date: 06/01/18 This is an 78-year-old female patient of Dr. Espinal well-known to my services. Patient presents to the hospital for an elective total left knee arthroplasty. On 05/11/2018 she sustained bilateral knee injuries. At that time it was found that Patient had bilateral tibial plateau fractures. At that time patient was ordered for bilateral knee immobilizer and discharged to [facility]. Additional medical history includes GERD, osteoporosis, hypothyroidism, constipation, macular degeneration and multiple food ALLERGIES. At this time patient is complaining of some left knee discomfort. Patient is currently working with physical therapy. Knee immobilizer remains on right leg. This time patient denies nausea vomiting or diarrhea. Patient denies chest pain or cough. Patient denies any urinary burning or frequency. Patient planning to be DC'd back to [facility] possibly tomorrow for physical therapy. On 06/01/2018 patient is alert and oriented 3 resting in bed. Patient is complaining of increased pain to left surgical knee. Patient denies chest pain or shortness of breath. Patient denies nausea vomiting or diarrhea. Patient denies any urinary burning or frequency Objective - Vital Signs Vital signs: Vital Signs Temp 98.3 F 06/01/18 07:00 Pulse 86 06/01/18 07:00 Resp 16 06/01/18 07:00 BP 158/76 06/01/18 07:00 Pulse Ox 98 06/01/18 09:09 Intake & Output 05/31/18 06/01/18 06/01/18 18:59 06:59 18:59 Other: Voiding Method Bedpan Bedpan Bedpan # Voids 2 2 - Exam Head normocephalic Neck supple Lungs clear to auscultation bilaterally no wheezing or crackles Heart regular rate and rhythm S1-S2, no rub or gallop Abdomen is soft nontender nondistended positive bowel sounds no hepatosplenomegaly Extremities no edema. Right knee dressing clean dry and intact Neuro alert and orientated to 3 - Labs CBC & Chem 7: 06/01/18 06:43 06/01/18 06:43 Labs: Abnormal Lab Results - Last 24 Hours (Table) 05/31/18 06/01/18 06/01/18 Range/Units 07:19 06:43 06:43 RBC 3.71 L (3.80-5.40) m/uL Hgb 10.5 L (11.4-16.0) gm/dL Hct 32.9 L (34.0-46.0) % Chloride 108 H (98-107) mmol/L BUN 18 H (7-17) mg/dL AST 13 L 11 L (14-36) U/L Total Protein 6.0 L 5.9 L (6.3-8.2) g/dL Albumin 3.0 L 3.0 L (3.5-5.0) g/dL Assessment and Plan Assessment: 1. Status post total left knee arthroplasty with Dr. Gaxiola. Patient is currently postop day 2. Patient remains on aspirin 325 twice a day for DVT prophylaxis. Pain meds per with of surgery 2. Bilateral tibial plateau fractures. Patient's left knee remains in knee immobilizer. 3. History of GERD 4. History of macular degeneration 5. History of osteoarthritis 6. History of hypothyroidism 7. History of constipation. DVT prophylaxis aspirin. GI prophylaxis Protonix. Patient planning to be DC'd to [facility] for rehab Thank you for this consultation we will continue to follow patient closely throughout stay I performed an examination of the patient and discussed their management with the Nurse Practitioner. I have reviewed the Nurse Practitioner's notes and agree with the documented findings and plan of care
[2018-06-01 12:42] VITALS: BP 137/80; PULSE 81; TEMP 97.9
== END 2018-06-01 13:11 | DRG 470 ==
LOC: 2ORMAIN 12:43 → 4SSUR 18:30
PROVIDERS: ADMIT Orthopaedic Surgery; ATTEND Orthopaedic Surgery
PROC: 0SRD06A Replacement of Left Knee Joint with Oxidized Zirconium on Polyethylene Synthetic Substitute, Uncemented, Open Approach (ICD-10-PCS; principal; 2018-05-30 14:30)
DX: S82.142A Displaced bicondylar fracture of left tibia, initial encounter for closed fracture (principal); S82.141A Displaced bicondylar fracture of right tibia, initial encounter for closed fracture; W19.XXXA Unspecified fall, initial encounter; E03.9 Hypothyroidism, unspecified; H35.30 Unspecified macular degeneration; K21.9 Gastro-esophageal reflux disease without esophagitis; K57.90 Diverticulosis of intestine, part unspecified, without perforation or abscess without bleeding; M81.0 Age-related osteoporosis without current pathological fracture; N39.3 Stress incontinence (female) (male); M19.90 Unspecified osteoarthritis, unspecified site; R21 Rash and other nonspecific skin eruption; H91.90 Unspecified hearing loss, unspecified ear; E55.9 Vitamin D deficiency, unspecified; B35.3 Tinea pedis; Z79.82 Long term (current) use of aspirin; Z79.890 Hormone replacement therapy; Z79.899 Other long term (current) drug therapy; Z90.710 Acquired absence of both cervix and uterus; Z87.891 Personal history of nicotine dependence; Z91.030 Bee allergy status; Z91.040 Latex allergy status; Z88.5 Allergy status to narcotic agent; Z91.018 Allergy to other foods; Z90.49 Acquired absence of other specified parts of digestive tract; Z98.42 Cataract extraction status, left eye; Z98.41 Cataract extraction status, right eye; Z96.1 Presence of intraocular lens; Z90.721 Acquired absence of ovaries, unilateral; Z82.49 Family history of ischemic heart disease and other diseases of the circulatory system
CPT/HCPCS: 80053; 85025; 88300; 94760

== ENCOUNTER → 2019-03-30 | Outpatient (CLI) | payer MEDICARE, BC ==
--- NOTE | 2019-04-03 13:09 | MM ---
Reason for exam: screening (asymptomatic). Last mammogram was performed 1 year and 1 month ago. History: Patient is postmenopausal. Benign stereotactic core biopsy of the left breast, July 29, 2003. Benign excisional biopsy of the right breast. Took estrogen for 10 years beginning at age 40. Took progesterone for 10 years. Physical Findings: A clinical breast exam by your physician is recommended on an annual basis and results should be correlated with mammographic findings. MG 3D Screening Mammo W/Cad Bilateral CC and MLO view(s) were taken. Prior study comparison: February 14, 2018, bilateral MG 3d screening mammo w/cad. November 24, 2016, bilateral MG 3d screening mammo w/cad. The breast tissue is heterogeneously dense. This may lower the sensitivity of mammography. Previous mammotome biopsy in the left breast. Stable greater in the left breast heterogeneous and dystrophic calcifications. No significant changes when compared with prior studies. ASSESSMENT: Benign, BI-RAD 2 RECOMMENDATION: Routine screening mammogram of both breasts in 1 year. Patient should continue monthly self breast exams. A negative report should not preclude additional follow up of suspicious palpable abnormalities.
== END | disposition home or self-care (01) ==
LOC: RADMAMWWP 13:06
PROVIDERS: ATTEND Family Medicine
DX: Z12.31 Encounter for screening mammogram for malignant neoplasm of breast (principal)
CPT/HCPCS: 77063; 77067

== ENCOUNTER 2021-01-15 01:31 | Emergency (ER) | payer MEDICARE, BC ==
[2021-01-15 01:43] VITALS: TEMP 97.6
[2021-01-15] MEDS ORDERED: SODIUM CHLORIDE 0.9% 1,000 ML IV STA (01:57)
[2021-01-15] MEDS ORDERED: MORPHINE SULFATE 4 MG/ML SYRINGE IV STA (01:57)
[2021-01-15 02:31] LABS: Basophils % (A) 0 %; Eosinophils # (A) 0.2 k/uL (0-0.7); Eosinophils % (A) 2 %; HCT 34.9 % (34.0-46.0); HGB 11.5 gm/dL (11.4-16.0); Lymphocytes # (A) 1.7 k/uL (1.0-4.8); Lymphocytes % (A) 16 %; MCH 29.8 pg (25.0-35.0); MCV 90.2 fL (80.0-100.0); Mean Platelet Volume 7.3; Monocytes # (A) 0.7 k/uL (0-1.0); Monocytes % (A) 7 %; Neutrophils # (A) 7.5 k/uL (1.3-7.7); Neutrophils % (A) 74 %; Platelet Count 304 k/uL (150-450); RBC 3.87 m/uL (3.80-5.40); RDW 14.2 % (11.5-15.5); WBC 10.2 k/uL (3.8-10.6)
--- NOTE | 2021-01-15 02:34 | ED ---
Fall HPI - General Chief Complaint: Fall Stated Complaint: Fall Time Seen by Provider: 01/15/21 01:50 Source: patient, EMS, RN notes reviewed, old records reviewed Limitations: no limitations - History of Present Illness Initial Comments: This is a 80-year-old female presenting with son today after fall. Patient tolerated the pain earlier in the day after landing on her back. Complaining of severe back pain. Patient's pain was controlled well today she was moving from a lying and bedside she was unable to sleep secondary to pain. No loss of bowel or bladder. Patient is able to ambulate although painful. Not her head no loss of consciousness no blood thinners. Patient has no other significant complaints MD Complaint: fall -: hour(s) Fall From: standing When Fall Occurred: 4-6 hours [employer] Fall Witnessed: yes, by family Place Fall Occurred: home Loss of Consciousness: none Prolonged Down Time?: no Symptoms Prior to Fall: none Location: back Severity: severe Severity scale (1-10): 8 Quality: sharp Context: tripped/slipped Associated Symptoms: denies - Related Data Home Medications Medication Instructions Recorded Confirmed Levothyroxine Sodium [Synthroid] 25 mcg PO DAILY 12/03/16 01/19/21 Vit A/Vit C/Vit E/Zinc/Copper 1 cap PO DAILY 12/03/16 01/19/21 [ICAPS SOFTGEL] EPINEPHrine [Epipen 2-Michael] 0.3 mg IM ONCE PRN 11/09/17 01/19/21 diphenhydrAMINE [Benadryl] 25 - 50 mg PO Q6HR PRN 11/09/17 01/19/21 Escitalopram [Lexapro] 20 mg PO DAILY 01/19/21 01/19/21 HYDROcodone/APAP 7.5-325MG [[place] 1 tab PO Q6H PRN 01/19/21 01/19/21 7.5-325] Previous Rx's Medication Instructions Recorded Lidocaine [Lidoderm 5% Patch] 1 patch TRANSDERM DAILY 20 Days 01/20/21 #20 patch Allergies Allergy/AdvReac Type Severity Reaction Status Date / Time apple Allergy Rash/Hives Verified 01/19/21 22:29 banana Allergy Rash/Hives Verified 01/19/21 22:29 bee venom protein (honey bee) Allergy Swelling Verified 01/19/21 22:29 Beef Containing Products Allergy Nausea & Verified 01/19/21 22:29 [Beef] Vomiting & Diarrhea codeine Allergy Unknown Verified 01/19/21 22:29 gluten Allergy Nausea & Verified 01/19/21 22:29 Vomiting & Diarrhea tomato Allergy Rash/Hives Verified 01/19/21 22:29 wheat Allergy Nausea & Verified 01/19/21 22:29 Vomiting & Diarrhea Yeast Allergy Rash/Hives Verified 01/19/21 22:29 latex AdvReac Itching Verified 01/19/21 22:29 casein protein Allergy Nausea & Uncoded 01/19/21 22:29 Vomiting & Diarrhea cod fish Allergy Rash/Hives Uncoded 01/19/21 22:29 maize Allergy Rash/Hives Uncoded 01/19/21 22:29 Review of Systems ROS Statement: Those systems with pertinent positive or pertinent negative responses have been documented in the HPI. ROS Other: All systems not noted in ROS Statement are negative. Past Medical History Past Medical History: GERD/Reflux, Osteoarthritis (OA), Thyroid Disorder Additional Past Medical History / Comment(s): pancreatic cyst(benign- removed),diverticulosis, goiter/thyroid, sinus problems. very sensitive thin fragile skin. stated has rash on trunk. chronic atheletes foot, stress incont of urine, macular degeneration nori eyes. pt stated she received the hepatits a vaccine and shingles vaccine 2016. Bilateral Tibial Fracture 05-11-18 History of Any Multi-Drug Resistant Organisms: None Reported Past Surgical History: Cholecystectomy, Hysterectomy Additional Past Surgical History / Comment(s): cataracts, colonoscopy, nori breast bx-neg, cyst removed from rt breast, oppherectomy then total hysterectomy, lt breast has marker for mammogram, benign cyst removed from pancreas. Past Anesthesia/Blood Transfusion Reactions: Motion Sickness Additional Past Anesthesia/Blood Transfusion Reaction / Comment(s): pt stated she has never had any blood transfusions Past Psychological History: No Psychological Hx Reported Past Alcohol Use History: Occasional Past Drug Use History: None Reported - Past Family History Mother Family Medical History: Hypertension Additional Family Medical History / Comment(s): mva- head injury- from co mplications Father Family Medical History: Coronary Artery Disease (CAD) Additional Family Medical History / Comment(s): heart problems General Exam Limitations: no limitations General appearance: alert, in no apparent distress Head exam: Present: atraumatic, normocephalic, normal inspection Eye exam: Present: normal appearance, PERRL, EOMI. Absent: scleral icterus, conjunctival injection, periorbital swelling ENT exam: Present: normal exam, mucous membranes moist Neck exam: Present: normal inspection. Absent: tenderness, meningismus, lymphadenopathy Respiratory exam: Present: normal lung sounds bilaterally. Absent: respiratory distress, wheezes, rales, rhonchi, stridor Cardiovascular Exam: Present: regular rate, normal rhythm, normal heart sounds. Absent: systolic murmur, diastolic murmur, rubs, gallop, clicks GI/Abdominal exam: Present: soft, normal bowel sounds. Absent: distended, te nderness, guarding, rebound, rigid Extremities exam: Present: normal inspection, full ROM, normal capillary refill. Absent: tenderness, pedal edema, joint swelling, calf tenderness Back exam: Present: tenderness, paraspinal tenderness, vertebral tenderness Neurological exam: Present: alert, oriented X3, CN II-XII intact Psychiatric exam: Present: normal affect, normal mood Skin exam: Present: warm, dry, intact, normal color. Absent: rash Course Vital Signs 01/15/21 01/15/21 01/15/21 01:37 04:02 04:30 Temperature 97.6 F 97.6 F Pulse Rate 90 86 84 Respiratory 16 18 18 Rate Blood Pressure 135/78 124/74 129/73 O2 Sat by Pulse 94 L 92 L 94 L Oximetry - Reevaluation(s) Reevaluation #1: Medical record is reviewed Patient symptoms are improved here in the ER and remained improved Patient informed results and questions answered Medical Decision Making - Medical Decision Making 80 female status post fall. Patient was doing well after the fall but as of current patient is having severe severe pain back pain was unable sleep today. Patient's pain is well-controlled now try discharged home - Lab Data Result diagrams: 01/15/21 02:24 01/15/21 02:24 Lab Results 01/15/21 01/15/21 01/15/21 Range/Units 02:24 02:24 02:24 WBC 10.2 (3.8-10.6) k/uL RBC 3.87 (3.80-5.40) m/uL Hgb 11.5 (11.4-16.0) gm/dL Hct 34.9 (34.0-46.0) % MCV 90.2 (80.0-100.0) fL MCH 29.8 (25.0-35.0) pg MCHC 33.0 (31.0-37.0) g/dL RDW 14.2 (11.5-15.5) % Plt Count 304 (150-450) k/uL MPV 7.3 Neutrophils % 74 % Lymphocytes % 16 % Monocytes % 7 % Eosinophils % 2 % Basophils % 0 % Neutrophils # 7.5 (1.3-7.7) k/uL Lymphocytes # 1.7 (1.0-4.8) k/uL Monocytes # 0.7 (0-1.0) k/uL Eosinophils # 0.2 (0-0.7) k/uL Basophils # 0.0 (0-0.2) k/uL Sodium 136 L (137-145) mmol/L Potassium 4.2 (3.5-5.1) mmol/L Chloride 102 (98-107) mmol/L Carbon Dioxide 29 (22-30) mmol/L Anion Gap 5 mmol/L BUN 13 (7-17) mg/dL Creatinine 0.60 (0.52-1.04) mg/dL Est GFR (CKD-EPI)AfAm >90 (>60 ml/min/1.73 sqM) Est GFR (CKD-EPI)NonAf 85 (>60 ml/min/1.73 sqM) Glucose 91 (74-99) mg/dL Calcium 8.9 (8.4-10.2) mg/dL Phosphorus 4.2 (2.5-4.5) mg/dL Magnesium 2.1 (1.6-2.3) mg/dL Total Bilirubin 0.2 (0.2-1.3) mg/dL AST 21 (14-36) U/L ALT 16 (4-34) U/L Alkaline Phosphatase 73 (38-126) U/L Troponin I (0.000-0.034) ng/mL Total Protein 6.6 (6.3-8.2) g/dL Albumin 3.4 L (3.5-5.0) g/dL Urine Color Yellow Urine Appearance Clear (Clear) Urine pH 6.5 (5.0-8.0) Ur Specific [place] 1.011 (1.001-1.035) Urine Protein Negative (Negative) Urine Glucose (UA) Negative (Negative) Urine Ketones Negative (Negative) Urine Blood Negative (Negative) Urine Nitrite Negative (Negative) Urine Bilirubin Negative (Negative) Urine Urobilinogen <2.0 (<2.0) mg/dL Ur Leukocyte Esterase Negative (Negative) 01/15/21 Range/Units 02:24 WBC (3.8-10.6) k/uL RBC (3.80-5.40) m/uL Hgb (11.4-16.0) gm/dL Hct (34.0-46.0) % MCV (80.0-100.0) fL MCH (25.0-35.0) pg MCHC (31.0-37.0) g/dL RDW (11.5-15.5) % Plt Count (150-450) k/uL MPV Neutrophils % % Lymphocytes % % Monocytes % % Eosinophils % % Basophils % % Neutrophils # (1.3-7.7) k/uL Lymphocytes # (1.0-4.8) k/uL Monocytes # (0-1.0) k/uL Eosinophils # (0-0.7) k/uL Basophils # (0-0.2) k/uL Sodium (137-145) mmol/L Potassium (3.5-5.1) mmol/L Chloride (98-107) mmol/L Carbon Dioxide (22-30) mmol/L Anion Gap mmol/L BUN (7-17) mg/dL Creatinine (0.52-1.04) mg/dL Est GFR (CKD-EPI)AfAm (>60 ml/min/1.73 sqM) Est GFR (CKD-EPI)NonAf (>60 ml/min/1.73 sqM) Glucose (74-99) mg/dL Calcium (8.4-10.2) mg/dL Phosphorus (2.5-4.5) mg/dL Magnesium (1.6-2.3) mg/dL Total Bilirubin (0.2-1.3) mg/dL AST (14-36) U/L ALT (4-34) U/L Alkaline Phosphatase (38-126) U/L Troponin I <0.012 (0.000-0.034) ng/mL Total Protein (6.3-8.2) g/dL Albumin (3.5-5.0) g/dL Urine Color Urine Appearance (Clear) Urine pH (5.0-8.0) Ur Specific [place] (1.001-1.035) Urine Protein (Negative) Urine Glucose (UA) (Negative) Urine Ketones (Negative) Urine Blood (Negative) Urine Nitrite (Negative) Urine Bilirubin (Negative) Urine Urobilinogen (<2.0) mg/dL Ur Leukocyte Esterase (Negative) - EKG Data -: EKG Interpreted by Me (EKG shows sinus rhythm 80, DE 178 QRS 90 QTC 438) - Radiology Data Radiology results: report reviewed (Chest x-ray as well as thoracic and lumbar spine CT is negative for traumatic fracture), image reviewed Disposition Clinical Impression: Fall, Back pain, Back contusion, Thoracic compression fracture Disposition: HOME SELF-CARE Condition: Good Instructions (If sedation given, give patient instructions): Fall Prevention for Older Adults (ED), Contusion in Adults (ED) Is patient prescribed a controlled substance at d/c from ED?: No Referrals: Rosemarie Espinal MD [Primary Care Provider] - 1-2 days
[2021-01-15 03:06] LABS: ALT 16 U/L (4-34); AST 21 U/L (14-36); African American GFR (CKD) >90 (>60 ml/min/1.73 sqM); Albumin 3.4 g/dL (3.5-5.0); Alkaline Phosphatase 73 U/L (38-126); Anion Gap 5 mmol/L; Blood Urea Nitrogen 13 mg/dL (7-17); Calcium 8.9 mg/dL (8.4-10.2); Carbon Dioxide 29 mmol/L (22-30); Chloride 102 mmol/L (98-107); Glucose 91 mg/dL (74-99); Magnesium 2.1 mg/dL (1.6-2.3); Non-African American GFR(CKD) 85 (>60 ml/min/1.73 sqM); Phosphorus 4.2 mg/dL (2.5-4.5); Potassium 4.2 mmol/L (3.5-5.1); Sodium 136 mmol/L (137-145); Total Bilirubin 0.2 mg/dL (0.2-1.3); Total Protein 6.6 g/dL (6.3-8.2)
--- NOTE | 2021-01-15 03:27 | XR ---
EXAMINATION TYPE: XR chest 1V portable DATE OF EXAM: 01/15/2021 COMPARISON: 05/11/2018 HISTORY: Fall. Pain TECHNIQUE: Single view FINDINGS: Heart is normal. There is some minimal subsegmental atelectasis left lung base. There is no heart failure. There are no hilar masses. Thoracic aorta is atheromatous. IMPRESSION: Minimal subsegmental atelectasis left lung base similar to old exam. Normal heart. No hea rt failure.
--- NOTE | 2021-01-15 03:34 | CT ---
EXAMINATION TYPE: CT lumbar spine wo con DATE OF EXAM: 01/15/2021 COMPARISON: CT abdomen 11/09/2017 HISTORY: fall/pain. no prior on PACS CT DLP: 723.9 mGycm Automated exposure control for dose reduction was used. The bones are generally osteopenic. There is some degenerative disc space narrowing at L4-5. I see no compression fracture. Sacrum is intact. Posterior elements are intact. There is no lumbar paraspinal mass. Sacroiliac joints are intact. I see no evidence of spinal stenosis. Some mild lateral recess s tenosis at L3-4 due to facet arthropathy and ligament thickening. IMPRESSION: Osteopenia. No compression fracture. No definite focal bone destruction. Degenerative disc changes at L4-5. No significant change overall compared to old exam.
--- NOTE | 2021-01-15 03:48 | CT ---
EXAMINATION TYPE: CT thoracic spine wo con DATE OF EXAM: 01/15/2021 COMPARISON: None HISTORY: fall/pain. no prior on PACS CT DLP: 493.8 mGycm Automated exposure control for dose reduction was used. Images obtained from T1 to T12 without contrast. There is generalized osteopenia. There is some biconcave deformity of lower thoracic vertebra. This i nvolves T9 and T11 vertebra. There is 15-20% loss of height. There is also some biconcave change at T 8. There is no thoracic paraspinal mass. I see no definite focal bone destruction. Posterior elements are intact. Thoracic aorta is atheromatous. IMPRESSION: There is some biconcave deformities that is consistent with combined osteoporosis and osteomalacia. T here is probably some progression of the compression deformities in the thoracic spine compared to th e old chest x-ray of 05/11/2018.
[2021-01-15 04:03] VITALS: RESP 18
[2021-01-15 04:31] VITALS: BP 129/73; PULSE 84
[2021-01-15 04:45] LABS: Appearance,Urine Clear (Clear); Bilirubin,Urine Negative (Negative); Blood,Urine Negative (Negative); Color,Urine Yellow; Glucose,Urine (UA) Negative (Negative); Ketones,Urine Negative (Negative); Leukocyte Esterase,Urine Negative (Negative); Nitrite,Urine Negative (Negative); PH, Urine 6.5 (5.0-8.0); Protein,Urine Negative (Negative); Specific Gravity,Urine 1.011 (1.001-1.035); Urobilinogen,Urine <2.0 mg/dL (<2.0)
== END 2021-01-15 04:31 | disposition home or self-care (01) ==
LOC: EC 01:31
DX: S22.009A Unspecified fracture of unspecified thoracic vertebra, initial encounter for closed fracture (principal); E07.9 Disorder of thyroid, unspecified; Z91.018 Allergy to other foods; Z91.013 Allergy to seafood; Z88.5 Allergy status to narcotic agent; Z91.030 Bee allergy status; Z91.040 Latex allergy status; Z79.890 Hormone replacement therapy; W01.10XA Fall on same level from slipping, tripping and stumbling with subsequent striking against unspecified object, initial encounter; Y92.009 Unspecified place in unspecified non-institutional (private) residence as the place of occurrence of the external cause
CPT/HCPCS: 36415; 93005; 80053; 83735; 84100; 84484; 85025; 81003; 71045; 72128; 72131; 99284; 96374; 96361; J2270

== ENCOUNTER 2021-01-19 21:24 | Emergency (ER) | payer MEDICARE, BC ==
[2021-01-19 21:31] VITALS: TEMP 97.4
[2021-01-19] MEDS ORDERED: ORPHENADRINE 30 MG/ML 2 ML VIAL IM STA (22:05)
--- NOTE | 2021-01-19 22:11 | ED ---
General Adult HPI - General Chief complaint: Back Pain/Injury Stated complaint: Back Pain Time Seen by Provider: 01/19/21 21:55 Source: patient, family (Son), RN notes reviewed, old records reviewed Mode of arrival: wheelchair - History of Present Illness Initial comments: 80-year-old female presents to the emergency room with her son complaining of thoracic back pain. Patient states that she fell out of bed on January 15 was seen here in the emergency room and had x-rays done all of them were negative. She was given Winfred for pain but she continues to have muscle spasms and worsening pain with deep breaths. She states it feels like the pain is around both sides of her ribs with 8 out of 10. She states that immobilization does help. She denies any chest pain shortness of breath or fevers. She denies any bowel or bladder incontinence. She states that she started taking Colace and did have a bowel movement today. She ambulates at home with a walker. She lives with her spouse and family checks on her daily. -: days(s) (4) Location: back (Thoracic) Radiation: non-radiation Severity scale (1-10): 8 Quality: constant Consistency: constant Improves with: immobilization Worsens with: movement Associated Symptoms: denies other symptoms Treatments Prior to Arrival: other (Winfred 7.5) - Related Data Home Medications Medication Instructions Recorded Confirmed Levothyroxine Sodium [Synthroid] 25 mcg PO DAILY 12/03/16 01/19/21 Vit A/Vit C/Vit E/Zinc/Copper 1 cap PO DAILY 12/03/16 01/19/21 [ICAPS SOFTGEL] EPINEPHrine [Epipen 2-Michael] 0.3 mg IM ONCE PRN 11/09/17 01/19/21 diphenhydrAMINE [Benadryl] 25 - 50 mg PO Q6HR PRN 11/09/17 01/19/21 Escitalopram [Lexapro] 20 mg PO DAILY 01/19/21 01/19/21 HYDROcodone/APAP 7.5-325MG [[place] 1 tab PO Q6H PRN 01/19/21 01/19/21 7.5-325] Allergies Allergy/AdvReac Type Severity Reaction Status Date / Time apple Allergy Rash/Hives Verified 01/19/21 22:29 banana Allergy Rash/Hives Verified 01/19/21 22:29 bee venom protein (honey bee) Allergy Swelling Verified 01/19/21 22:29 Beef Containing Products Allergy Nausea & Verified 01/19/21 22:29 [Beef] Vomiting & Diarrhea codeine Allergy Unknown Verified 01/19/21 22:29 gluten Allergy Nausea & Verified 01/19/21 22:29 Vomiting & Diarrhea tomato Allergy Rash/Hives Verified 01/19/21 22:29 wheat Allergy Nausea & Verified 01/19/21 22:29 Vomiting & Diarrhea Yeast Allergy Rash/Hives Verified 01/19/21 22:29 latex AdvReac Itching Verified 01/19/21 22:29 casein protein Allergy Nausea & Uncoded 01/19/21 22:29 Vomiting & Diarrhea cod fish Allergy Rash/Hives Uncoded 01/19/21 22:29 maize Allergy Rash/Hives Uncoded 01/19/21 22:29 Review of Systems ROS Statement: Those systems with pertinent positive or pertinent negative responses have been documented in the HPI. ROS Other: All systems not noted in ROS Statement are negative. Past Medical History Past Medical History: GERD/Reflux, Osteoarthritis (OA), Thyroid Disorder Additional Past Medical History / Comment(s): pancreatic cyst(benign- removed),diverticulosis, goiter/thyroid, sinus problems. very sensitive thin fragile skin. stated has rash on trunk. chronic atheletes foot, stress incont of urine, macular degeneration nori eyes. pt stated she received the hepatits a vac cine and shingles vaccine 2016. Bilateral Tibial Fracture 05-11-18 History of Any Multi-Drug Resistant Organisms: None Reported Past Surgical History: Cholecystectomy, Hysterectomy Additional Past Surgical History / Comment(s): cataracts, colonoscopy, nori breast bx-neg, cyst removed from rt breast, oppherectomy then total h ysterectomy, lt breast has marker for mammogram, benign cyst removed from pancreas. Past Anesthesia/Blood Transfusion Reactions: Motion Sickness Additional Past Anesthesia/Blood Transfusion Reaction / Comment(s): pt stated she has never had any blood transfusions Past Psychological History: No Psychological Hx Reported Smoking Status: Never smoker Past Alcohol Use History: Occasional Past Drug Use History: None Reported - Past Family History Mother Family Medical History: Hypertension Additional Family Medical History / Comment(s): mva- head injury- from comp lications Father Family Medical History: Coronary Artery Disease (CAD) Additional Family Medical History / Comment(s): heart problems General Exam Limitations: no limitations General appearance: alert, in no apparent distress Head exam: Present: atraumatic, normocephalic, normal inspection Eye exam: Present: normal appearance, EOMI. Absent: scleral icterus, conjunctival injection ENT exam: Present: normal exam, normal oropharynx, mucous membranes moist Neck exam: Present: normal inspection, full ROM. Absent: tenderness, meningismus, lymphadenopathy, thyromegaly Respiratory exam: Present: normal lung sounds bilaterally. Absent: respiratory distress, wheezes, rales, rhonchi, stridor Cardiovascular Exam: Present: regular rate, normal rhythm, normal heart sounds. Absent: systolic murmur, diastolic murmur, rubs, gallop, clicks, JVD GI/Abdominal exam: Present: soft, normal bowel sounds. Absent: distended, tenderness, guarding, rebound, rigid Extremities exam: Present: full ROM, tenderness (Bruising to right lower extremity and foot), normal capillary refill. Absent: pedal edema, joint swelling, calf tenderness Back exam: Present: normal inspection, tenderness, paraspinal tenderness, rash noted. Absent: CVA tenderness (R), CVA tenderness (L), vertebral tenderness Expanded Back exam: Absent: saddle anesthesia Back exam: Negative Straight Leg Raising: Left, Right Neurological exam: Present: alert, oriented X3 Psychiatric exam: Present: normal affect, normal mood Skin exam: Present: warm, dry, intact, normal color, other (Rash noted chest and back, patient and son states is chronic from food ALLERGIES. ). Absent: rash, cyanosis, diaphoretic Course Vital Signs 01/19/21 21:27 Temperature 97.4 F L Pulse Rate 91 Respiratory 19 Rate Blood Pressure 165/83 O2 Sat by Pulse 97 Oximetry Medical Decision Making - Medical Decision Making Patient had a fall out of bed on January 15. She was seen in the emergency room at that time and x-rays were done with no evidence of fractures. 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 Patient was prescribed Winfred but states that she continues to have muscle spasms and mid thoracic paraspinal muscle tightness. Her lung sounds are clear to auscultation, her oxygen saturation and vital signs are within normal limits. She denies any fevers or cough, no hemoptysis. She was given Norflex in the emergency room and states that she did get pain relief. She was also given a Lidoderm patch for pain control. Her son is at the bedside states that they do have an appointment with Dr. Espinal this week. Her son states that she is able to ambulate at home with a walker. They're directed to return to the emergency room with any new or worsening symptoms. Case was discussed with Dr. Reyes. Disposition Clinical Impression: Back pain Disposition: HOME SELF-CARE Condition: Good Instructions (If sedation given, give patient instructions): Back Pain (ED) Additional Instructions: Continue to take Winfred as previously prescribed. Take the Colace once a day while taking the Winfred to prevent constipation. Use the Lidoderm patches as directed. Follow-up with primary care doctor this week. Return to the emergency room with any new or worsening symptoms including difficulty breathing, chest pain or fevers. Is patient prescribed a controlled substance at d/c from ED?: No Referrals: Rosemarie Espinal MD [Primary Care Provider] - 1-2 days Time of Disposition: 23:05
[2021-01-19] MEDS ORDERED: LIDOCAINE 5% PATCH TOPICAL SCH (22:30)
[2021-01-19] MEDS ORDERED: CYCLOBENZAPRINE 10MG STARTER 3 TAB BTL PO STA (23:01)
[2021-01-19 23:43] VITALS: BP 160/94; PULSE 85; RESP 18
== END 2021-01-19 23:43 | disposition home or self-care (01) ==
LOC: EC 21:24
DX: M54.9 Dorsalgia, unspecified (principal); E07.9 Disorder of thyroid, unspecified; Z79.890 Hormone replacement therapy; Z91.018 Allergy to other foods; Z91.013 Allergy to seafood; Z91.040 Latex allergy status
CPT/HCPCS: 96372; 99283; J2360

== ENCOUNTER → 2024-02-03 | Outpatient (CLI) | payer MEDICARE, BC ==
--- NOTE | 2024-02-04 18:02 | BD ---
EXAMINATION TYPE: Axial Bone Density DATE OF EXAM: 02/03/2024 CLINICAL HISTORY: 83 years old Female. ICD-10 CODE: M81.0 AGE RELATED OSTEO , Additional History: Height: 61 in Weight: 129 lbs FRAX RISK QUESTIONS: History of Fracture in Adulthood: nori tib/fib age 76 Secondary Osteoporosis: 3. Menopause before 45: total hysterectomy age 39 RISK FACTORS HISTORY OF: Spine Fracture: pt has t-spine and l-spine fx MEDICATIONS: Thyroid Medications: yes Which medication: Levothyroxine How Lon years EXAM MEASUREMENTS: Bone mineral densitometry was performed using the Kinvey System. pt states thoracic and lumbar fx Bone mineral density about the R hip (g/cm2): 0.564 Bone mineral density about the L hip (g/cm2): 0.555 T Score values are as follows: -----R Neck: -3.1 -----L Neck: -2.9 -----R Total: -3.5 -----L Total: -3.6 Z Score values are as follows: -----R Neck: -0.6 -----L Neck: -0.4 -----R Total: -1.1 -----L Total: -1.1 Bone mineral density baseline Bone mineral density about the L Wrist (g/cm2): 0.303 T Score values are as follows: -----Dist. R+U: -4.3 -----Prox. R+U: -5.7 -----Radius total: -6.2 Z Score values are as follows: -----Dist. R+U: -1.1 -----Prox. R+U: -2.5 -----Radius total: -2.9 Bone mineral density baseline FRAX%s: The graph provided illustrates a 33.2% chance for a major osteoporotic fx and a 13.3% chance for the hips probability for fx in 10 years time. IMPRESSION: Osteoporosis (T Score less than -2.5). There is increased fracture risk and therapy is usually indicated based on age. Re-Screen 1-2 years. NOTE: T-SCORE=SD OF THE YOUNG ADULT MEAN. [facility], , 02/04/2024 5:59 PM
== END | disposition home or self-care (01) ==
LOC: RADBDWWP 11:30
PROVIDERS: ATTEND Internal Medicine Hematology & Oncology
DX: M81.0 Age-related osteoporosis without current pathological fracture (principal)
CPT/HCPCS: 77080

== ENCOUNTER → 2024-05-22 | Outpatient (CLI) | payer MEDICARE, BC ==
--- NOTE | 2024-05-22 11:53 | MM ---
Reason for Exam: Clinical finding. Last mammogram was performed 5 year(s) and 1 month(s) ago. Patient History: Menarche at age 9. First Full-Term at age 25. Left ovary removed at age 41. Right ovary removed at age 41. Hysterectomy at age 41. Postmenopausal. Estrogen for 10 years from age 40 until age 50. Patient used Progesterone for 10 years. Benign Excisional Biopsy on the right side. 07/29/2003, Benign Stereotactic Core Biopsy on the left side. Prior Study Comparison: 11/24/2016 Bilateral Screening Mammogram, [facility]. 02/14/2018 Bilateral Screening Mammogram, [facility]. 03/30/2019 Bilateral Screening Mammogram, [facility]. Tissue Density: Right: The breasts are heterogeneously dense, which may obscure small masses. Findings: Analyzed By CAD. There is no suspicious group of microcalcifications or new suspicious mass. Benign-appearing calcifications right breast. No new suspicious masses, calcifications or distortions. Overall Assessment: Incomplete: need additional imaging evaluation, BI-RAD 0 Management: Diagnostic Breast Ultrasound of the right breast. Ultrasound for evaluation of clear nipple discharge. Results were given to the patient verbally at the time of exam. Patient should continue monthly self-breast exams. A clinical breast exam by your physician is recommended on an annual basis. This exam should not preclude additional follow-up of suspicious palpable abnormalities. Note on Karine scores and lifetime risk: 1. A Karine score greater than 3% is considered moderate risk. If this is the case, consider specialist referral to assess eligibility for a risk reducing agent. 2. If overall lifetime risk for the development of breast cancer is 20% or higher, the patient may qualify for future screening with alternating mammogram and breast MRI. [facility], , 05/22/2024 11:50 AM. Electronically signed and approved by: Davey Alberto DO
--- NOTE | 2024-05-22 12:26 | USB ---
Reason for Exam: Clinical finding. Patient History: Menarche at age 9. First Full-Term at age 25. Left ovary removed at age 41. Right ovary removed at age 41. Hysterectomy at age 41. Postmenopausal. Estrogen for 10 years from age 40 until age 50. Patient used Progesterone for 10 years. Benign Excisional Biopsy on the right side. 07/29/2003, Benign Stereotactic Core Biopsy on the left side. Technique: Method: Targeted. Prior Study Comparison: 11/24/2016 Bilateral Screening Mammogram, [facility]. 02/14/2018 Bilateral Screening Mammogram, [facility]. 03/30/2019 Bilateral Screening Mammogram, [facility]. Findings: The axilla of the right breast and the retroareolar of the right breast were scanned. Technique utilized:US breast limited RT Image; Ultrasound imaging of: Area of concern retroareolar region, retroareolar region and axilla. Few dilated ducts in the retroareolar region. No evidence for organizing fluid collection or mass. Overall Assessment: Benign, BI-RAD 2 Management: Screening Mammogram of both breasts in 1 year. Clinical management for nipple discharge. A clinical breast exam by your physician is recommended on an annual basis and results should be correlated with mammographic findings. This exam should not preclude additional follow-up of suspicious palpable abnormalities. Results were given to the patient verbally at the time of exam. [facility], , 05/22/2024 12:09 PM. Electronically signed and approved by: Davey Alberto DO
== END | disposition home or self-care (01) ==
LOC: RADMAMWWP 11:31
PROVIDERS: ATTEND Family Medicine
DX: N64.52 Nipple discharge (principal); R92.331 Mammographic heterogeneous density, right breast; R92.1 Mammographic calcification found on diagnostic imaging of breast; Z78.0 Asymptomatic menopausal state
CPT/HCPCS: 77065; 76642; G0279; 77061

== ENCOUNTER 2024-06-13 10:02 | Outpatient (CLI) | payer MEDICARE, BC ==
[~2024-06-13 10:02] MED LIST changes: -ACETAMINOPHEN TAB 500 MG TAB PO ONE; -DEXAMETHASONE SOD PHOSPHATE 10 MG/ML 1 ML VIAL IV ONE; -LIDOCAINE 1% 20 ML VIAL (10MG/ML) FOR IV START INTRADERMA PRN; -MELOXICAM 7.5 MG TAB PO ONE; -MIDAZOLAM 2 MG/2 ML VIAL IV PRN; -ONDANSETRON 4 MG/2 ML VIAL IVP ONE; -ROPIVACAINE 246.25 MG, EPINEPHrine 0.5 MG, KETOROLAC 30 MG, cloNIDine HCL/PF 80 MCG, WA... MISCELLANE ONE; -SCOPOLAMINE 1.5MG/72HR PATCH TRANSDERM ONE; +SODIUM CHLORIDE 0.9% 250 ML in EMPTY BAG 1 BAG IV PRN; -TRANEXAMIC ACID 1,000 MG in SODIUM CHLORIDE 0.9% 100 ML IVPB ONE; -ceFAZolin IN SWFI 2 GM/20 ML SYRINGE IVP ONE
[2024-06-13] MEDS: SODIUM CHLORIDE 0.9% 500 ML 500 ML in EMPTY BAG 1 BAG IV PRN (10:43)
[2024-06-13 10:46] VITALS: BP 145/75; PULSE 77; RESP 16; TEMP 97.1
[2024-06-13] MEDS: ZOLEDRONIC ACID 5 MG in SODIUM CHLORIDE 0.9% 100 ML IV NR (10:50)
== END 2024-06-13 12:43 | disposition home or self-care (01) ==
LOC: PROCWHC3 10:02
PROVIDERS: ATTEND Internal Medicine Hematology & Oncology
DX: M81.0 Age-related osteoporosis without current pathological fracture (principal); Z88.5 Allergy status to narcotic agent; Z88.8 Allergy status to other drugs, medicaments and biological substances; Z91.040 Latex allergy status; Z91.030 Bee allergy status; Z91.018 Allergy to other foods
CPT/HCPCS: 96365; J3489